=== PATIENT | female | born 1930 | race Caucasian/White ===

== ENCOUNTER 2016-11-14 16:55 | Inpatient (IN) | payer MEDICARE ==
[~2016-11-14] VITALS: Ht 154.9 cm; Wt 45.8 kg
[~2016-11-14 16:55] MED LIST: ASPI81TA2 PO; FURO-68 PO; LEVO750T5 PO
[2016-11-14] MEDS ORDERED: methylPREDNISolone SOD SUCC PF 125 MG/2 ML VIAL. IV ONE (17:15)
[2016-11-14] MEDS ORDERED: IPRATRPIUM/ALBUTEROL 0.5/2.5MG 3 ML NEBU. NEB ONE (17:15)
[2016-11-14 17:29] LABS: HCO3 ABG 22 mmol/L (21-28); PO2 ABG 54 mmHg (65-108); SAT O2 ABG 86 % (92-99)
[2016-11-14 17:30] LABS: PCO2 ABG 38 mmHg (35-46); PH ABG 7.38 (7.35-7.45)
[2016-11-14 17:32] LABS: BASO # 0.1 x10^3/uL (0.0-0.2); BASO % 1 % (0-3); EOS % 1 % (0-3); HEMATOCRIT 40.7 % (36.0-47.0); HEMOGLOBIN 13.1 g/dL (12.0-15.5); LYMPH # 2.1 x10^3/uL (1.0-4.8); LYMPH % 22 % (24-48); MEAN CORPUSCULAR HEMOGLOBIN 31 pg (25-35); MEAN CORPUSCULAR HGB CONC 32 g/dL (31-37); MEAN CORPUSCULAR VOLUME 97 fL (79-100); MONO % 6 % (0-9); NEUT % 71 % (31-73); PLATELET COUNT 334 x10^3/uL (140-400); RED BLOOD COUNT 4.18 x10^6/uL (3.50-5.40); WHITE BLOOD COUNT 9.8 x10^3/uL (4.0-11.0)
[2016-11-14] MEDS ORDERED: NITROGLYCERIN PREMIX 250 ML IV ONE (17:45)
[2016-11-14 17:50] LABS: CALCIUM 9.1 mg/dL (8.5-10.1); GFR 52.8; POTASSIUM 4.2 mmol/L (3.5-5.1)
[2016-11-14 17:58] LABS: OBC FLU VALID
[2016-11-14 18:02] LABS: ALBUMIN 3.4 g/dL (3.4-5.0); ALBUMIN/GLOBULIN RATIO 0.9 (1.0-1.7); TOTAL BILIRUBIN 0.5 mg/dL (0.2-1.0)
[2016-11-14] MEDS ORDERED: NITROGLYCERIN SUBLINGUAL 0.4 MG BOTTLE OF 25. SL PRN (20:30)
[2016-11-14] MEDS ORDERED: MORPHINE SULFATE 2 MG/ML DISP.SYRIN. IV PRN (20:30)
[2016-11-14] MEDS ORDERED: ACETAMINOPHEN 325 MG TABLET. PO PRN (20:30)
[2016-11-14] MEDS ORDERED: ONDANSETRON PF 4 MG/2 ML VIAL. IV PRN (20:30)
--- NOTE | 2016-11-14 21:48 | ED.ADGEN ---
Past Medical History Past Medical History: Hypertension Past Surgical History: No Surgical History Alcohol Use: None Drug Use: None Adult General Chief Complaint Chief Complaint: SHORTNESS OF BREATH HPI HPI Patient is a 86 year old woman, history of hypertension, COPD, who presents emergency department with report of shortness of breath. Upon arousing emergency part, patient noted be in respiratory failure, dyspneic, tachypnea, with an oxygen saturation in the 70s. Patient placed on a nonrebreather, is denying any chest pain, complaining of increasing shortness of breath with nonproductive cough over the past several days, denies any fevers or chills, any weakness emesis or tingling, any injuries. Patient states that she was seen in the emergency department in August, at that time she was given antibiotics other medications. She states she does not have a primary care provider, and has not been taking blood pressure medication which was prescribed previously. It is unclear if she did take all the medications he was given during her previous ED visit. Denies any swelling extremities, any recent travel or surgery , history of DVT or PE. Patient noted be hypertensive, blood pressure 200s over 130s, oxygen saturation is improved on Ventimask, 92% on 50% FiO2, respiratory rate is in the 30s, and heart rate is sinus tachycardia in the 1 teens. Review of Systems Review of Systems Constitutional: Denies fever or chills. [] Eyes: Denies change in visual acuity. [] HENT: Denies nasal congestion or sore throat. [] Respiratory: Nonproductive cough, shortness of breath the past several days. Cardiovascular: Denies chest pain or edema. [] GI: Denies abdominal pain, nausea, vomiting, bloody stools or diarrhea. [] : Denies dysuria. [] Musculoskeletal: Denies back pain or joint pain. [] Integument: Denies rash. [] Neurologic: Denies headache, focal weakness or sensory changes. [] Endocrine: Denies polyuria or polydipsia. [] Lymphatic: Denies swollen glands. [] Psychiatric: Denies depression or anxiety. [] Current Medications Current Medications Current Medications Medications (Trade) Dose Ordered Sig/Brice Start Time Stop Time Status Last Admin Dose Admin Albuterol/ Ipratropium (Duoneb) 3 ml 1X ONCE 11/14/16 17:15 11/14/16 17:16 DC 11/14/16 17:22 3 ML Methylprednisolone Sodium Succinate (Solu-Medrol 125mg Vial) 125 mg 1X ONCE 11/14/16 17:15 11/14/16 17:16 DC 11/14/16 17:42 125 MG Allergies Allergies Allergies Coded Allergies Type Severity Reaction Last Updated Verified Penicillins Allergy Intermediate 11/14/16 No Sulfa (Sulfonamide Antibiotics) Allergy Intermediate 11/14/16 No Physical Exam Physical Exam Constitutional: Well developed, well nourished, ill-appearing appearance, and respiratory failure, with increased work of breathing. Ventimask in place. HENT: Normocephalic, atraumatic, bilateral external ears normal, oropharynx moist, no oral exudates, nose normal. [] Eyes: PERRLA, EOMI, conjunctiva normal, no discharge. [] Neck: Normal range of motion, no tenderness, supple, no stridor. [] Cardiovascular: Tachycardic, S1, S2, S3, no rubs. [] Lungs & Thorax: Patient with rales noted, and diminished breath sounds at bases bilaterally, few scattered wheezing. Very poor aeration, poor effort, patient with increased work of breathing. Abdomen: Bowel sounds normal, soft, no tenderness, no rebound, rigidity, no guarding, no masses, no pulsatile masses. [] Skin: Warm, dry, no erythema, no rash. [] Back: No tenderness, no CVA tenderness. [] Extremities: No tenderness, no cyanosis, no clubbing, ROM intact, no edema. Negative Homans sign. [] Neurologic: Alert and oriented X 3, normal motor function, normal sensory function, no focal deficits noted. [] Psychologic: Affect normal, judgement normal, mood normal. [] Current Patient Data Vital Signs Vital Signs Date Time Temp Pulse Resp B/P Pulse Ox O2 Delivery O2 Flow Rate FiO2 11/14/16 17:33 110 35 207/130 90 Venturi Mask 11/14/16 17:05 98.3 98.3 Lab Values Laboratory Tests Test 11/14/16 17:12 11/14/16 17:20 White Blood Count 9.8x10^3/uL (4.0-11.0) Red Blood Count 4.18x10^6/uL (3.50-5.40) Hemoglobin 13.1g/dL (12.0-15.5) Hematocrit 40.7% (36.0-47.0) Mean Corpuscular Volume 97fL (79-100) Mean Corpuscular Hemoglobin 31pg (25-35) Mean Corpuscular Hemoglobin Concent 32g/dL (31-37) Red Cell Distribution Width 14.0% (11.5-14.5) Platelet Count 334x10^3/uL (140-400) Neutrophils (%) (Auto) 71% (31-73) Lymphocytes (%) (Auto) 22% (24-48) L Monocytes (%) (Auto) 6% (0-9) Eosinophils (%) (Auto) 1% (0-3) Basophils (%) (Auto) 1% (0-3) Neutrophils # (Auto) 7.0x10^3uL (1.8-7.7) Lymphocytes # (Auto) 2.1x10^3/uL (1.0-4.8) Monocytes # (Auto) 0.6x10^3/uL (0.0-1.1) Eosinophils # (Auto) 0.1x10^3/uL (0.0-0.7) Basophils # (Auto) 0.1x10^3/uL (0.0-0.2) Sodium Level 144mmol/L (136-145) Potassium Level 4.2mmol/L (3.5-5.1) Chloride Level 103mmol/L (98-107) Carbon Dioxide Level 29mmol/L (21-32) Anion Gap 12 (6-14) Blood Urea Nitrogen 22mg/dL (7-20) H Creatinine 1.0mg/dL (0.6-1.0) Estimated GFR (Cockcroft-Gault) 52.8 BUN/Creatinine Ratio 22 (6-20) H Glucose Level 166mg/dL (70-99) H Lactic Acid Level 3.0mmol/L (0.4-2.0) H Calcium Level 9.1mg/dL (8.5-10.1) Total Bilirubin 0.5mg/dL (0.2-1.0) Aspartate Amino Transferase (AST) 54U/L (15-37) H Alanine Aminotransferase (ALT) 47U/L (14-59) Alkaline Phosphatase 79U/L (46-116) Troponin I Quantitative 0.058ng/mL (0.000-0.055) YF-Geq-F-Type Natriuretic Peptide 40340lq/mL (0-449) H Total Protein 7.0g/dL (6.4-8.2) Albumin 3.4g/dL (3.4-5.0) Albumin/Globulin Ratio 0.9 (1.0-1.7) L Influenza Type A Antigen Negative (NEGATIVE) Influenza Type B Antigen Negative (NEGATIVE) O2 Saturation 86% (92-99) L Arterial Blood pH 7.38 (7.35-7.45) Arterial Blood pCO2 at Patient Temp 38mmHg (35-46) Arterial Blood pO2 at Patient Temp 54mmHg (65-108) L Arterial Blood HCO3 22mmol/L (21-28) Arterial Blood Base Excess -3mmol/L (-3-3) FiO2 50.0 Laboratory Tests 11/14/16 17:12 Laboratory Tests 11/14/16 17:12 EKG EKG EC: Sinus tachycardia, heart rate 115 beats minute, right axis deviation , QTC of 464, QRS of 108, DC 126, evidence of right ventricular hypertrophy, T- wave inversions noted in V5 and V6, abnormal ECG, does not meet STEMI criteria. No prior for comparison. Radiology/Procedures Radiology/Procedures [] Course & Med Decision Making Course & Med Decision Making Pertinent Labs and Imaging studies reviewed. (See chart for details) Oxygen saturation in the mid 90s on Ventimask at 50% FiO2. Chest x-ray reveals evidence of COPD, with pulmonary edema, effusion, and possible infiltrates. Consistent with COPD, CHF and possible pneumonia. Review of records reveals the patient was seen in the emergency department August but declined admission, and signed out AGAINST MEDICAL ADVICE, and was discharged home with Lasix, antibiotics and steroids. Patient does not carry a diagnosis of congestive heart failure, but has not been evaluated since that time. Examination today is consistent with all these diagnoses. I did discuss this with the patient, at this time she is agreeable for admission to the hospital. Patient was placed on BiPAP promptly in the emergency department, along with a nitroglycerin infusion , with control of her blood pressure via protocol, blood pressures in the 150/ 80 range established, heart rate is in the 90s to low 100s, oxygen saturation and BiPAP is in the upper 90s. Patient appears much more comfortable. Work of breathing significantly diminished. Chest x-ray with findings as stated, patient was initiated on Levaquin for an about a coverage, along with steroids, nebs, and nitroglycerin as stated, noted to have a slightly elevated troponin, which I believe is due to the patient's respiratory distress. Presentation and history discussed with Dr. Paulino of cardiology, he is in agreement with the assessment and plan to follow serial enzymes, continue blood pressure management with nitroglycerin infusion, and respiratory support. No indication for anticoagulation or other intervention at this time. Findings as above discussed with Dr. Andersen of internal medicine, patient accepted to her service as a full admission to the cardiac telemetry floor with interventions and consultation as above, additionally pulmonary no care consultation for management of respiratory failure. Patient remained stable with above interventions, transferred to the floor without issue with bridge orders as discussed. Dragon Disclaimer Dragon Disclaimer This electronic medical record was generated, in whole or in part, using a voice recognition dictation system. Departure Impression: Primary Impression: Hypoxic Additional Impressions: Elevated troponin Tachycardia SOB (shortness of breath) Disposition: ADMITTED INPATIENT Admitting Physician: Other Condition: IMPROVED Critical Care Time Critical care time was 20 minutes exclusive of procedures. Problem Qualifiers ROSA ISELA WATTS DO Nov 14, 2016 21:48
[2016-11-14] MEDS ORDERED: ASPIRIN 81 MG TAB.CHEW PO ONE (22:00)
[2016-11-14] MEDS: IPRATRPIUM/ALBUTEROL 0.5/2.5MG 3 ML NEBU. NEB SCH (22:06)
[2016-11-14] MEDS ORDERED: FUROSEMIDE 20 MG/2 ML VIAL IVP ONE (22:30)
[2016-11-15] VITALS (13 sets, daily range): BP systolic 134–164; BP diastolic 62–94
[2016-11-15 05:29] LABS: BASO % 0 % (0-3); EOS % 0 % (0-3); HEMOGLOBIN 12.5 g/dL (12.0-15.5); LYMPH # 0.5 x10^3/uL (1.0-4.8); LYMPH % 8 % (24-48); MEAN CORPUSCULAR HEMOGLOBIN 31 pg (25-35); MEAN CORPUSCULAR HGB CONC 32 g/dL (31-37); MEAN CORPUSCULAR VOLUME 96 fL (79-100); MONO % 3 % (0-9); NEUT % 90 % (31-73); PLATELET COUNT 322 x10^3/uL (140-400); RED BLOOD COUNT 4.05 x10^6/uL (3.50-5.40); RED CELL DISTRIBUTION WIDTH 14.3 % (11.5-14.5)
[2016-11-15 05:46] LABS: CALCIUM 8.7 mg/dL (8.5-10.1); CREATININE 0.9 mg/dL (0.6-1.0); GFR 59.7; POTASSIUM 4.1 mmol/L (3.5-5.1)
--- NOTE | 2016-11-15 06:12 | EKG ---
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 OLD ANTEROSEPTAL WALL IA. LEFT VENTRICULAR HYPERTROPHY WITH REOLARIZATION CHANGES. ALSO CONSIDER MYOCARDIAL ISCHEMIA. MISSING LEAD V 4. Electronically Signed On 11-16-2016 21:37:40 CDT by Danielle Gilman
[2016-11-15] MEDS: IPRATRPIUM/ALBUTEROL 0.5/2.5MG 3 ML NEBU. NEB SCH ×4 (07:45→20:27)
--- NOTE | 2016-11-15 08:02 | EKG ---
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 PROLONGED QT ABNORMAL ECG Electronically Signed On 11-18-2016 12:37:40 CDT by Danielle Gilman
[2016-11-15] MEDS ORDERED: INFLUENZA VAX SCREEN BY RX. MC PRN (08:45)
--- NOTE | 2016-11-15 08:56 | RAD ---
Portable chest, 11/14/2016: History: Shortness of breath Comparison is made to a study from 08/29/2016. The patient is rotated to the left. There are moderate bibasilar opacities compatible with pleural fluid and infiltrate, right greater than left. The opacities appear to have worsened slightly since the previous study, particularly on the right. The pulmonary vascularity is congested. The cardiac margins are obscured by the basilar infiltrates and pleural fluid, but the heart size appears to be unchanged. IMPRESSION: Congestive heart failure with pulmonary edema and pleural effusions, right greater than left, with slight worsening since 08/29/2016. A component of pneumonia cannot be excluded.
[2016-11-15] MEDS ORDERED: FLU VACC QUAD 2016-17 (36MOS+)/PF 0.5 ML SYRINGE. VAX IM ONE (09:00)
--- NOTE | 2016-11-15 09:26 | HP ---
ADMIT DATE: 11/14/2016 CHIEF COMPLAINT: Shortness of breath. HISTORY OF PRESENT ILLNESS: The patient is an 86-year-old woman with past medical history of hypertension, COPD, question CHF who presented to the Emergency Room with shortness of breath. She was noted to be quite dyspneic, hypoxic and tachypneic with a pulse ox in the 70s. She was therefore placed on BiPAP. She denied any chest pain or productive cough, although has noted symptoms getting worse over the past few days with dry cough and increasing shortness of breath. No fevers, no chills, no other symptoms. Of note, the patient actually had been in the Emergency Room in August with essentially similar symptoms and had a chest x-ray suspicious for CHF exacerbation at that time, but declined further admission. Current ER visit was also positive for hypertensive urgency with blood pressures in the 200s/130s, tachycardic in the one teens. PAST MEDICAL HISTORY: Hypertension, COPD, although she never smoked. Question CHF. FAMILY HISTORY: Unknown to the patient. SOCIAL HISTORY: Recently moved in with her niece, as she was unable to cope at home and her ceiling, according to the niece, was falling in with black mold behind. ALLERGIES: PENICILLINS AND SULFA. MEDICATIONS: Essentially none, as the patient had run out of medication scripts from the ER, does not have a PCP. REVIEW OF SYSTEMS: Limited due to her current use of BiPAP. The patient denies any pain. Breathing is improved. PHYSICAL EXAMINATION: VITAL SIGNS: From today show a blood pressure of 173/97, heart rate at 94, respiratory rate at 38. She is afebrile. GENERAL: This is a malnourished, frail-appearing, 86-year-old woman, awake, alert, mild respiratory distress, currently on BiPAP. HEENT: Shows no scleral icterus. NECK: Supple, without any palpable lymphadenopathy. LUNGS: Have expiratory wheezes bilaterally. HEART: Tachycardic. ABDOMEN: Has positive bowel sounds, soft, nontender. EXTREMITIES: Show no edema, no clubbing, no cyanosis. SKIN: Warm, soft and dry. LABORATORY DATA: CBC with a WBC of 9.8, hemoglobin 13.1, platelets of 334, normal differential. Chemistries with a BUN and creatinine of 22 and 1.0, normal electrolytes, glucose at 166, AST at 54, ALT at 47. Initial proBNP 17,082. Troponin at 0.058, albumin at 3.4, lactate at 3.0. Serologies for influenza A and B were negative. IMAGING STUDIES: Chest x-ray obtained in the Emergency Room and reviewed by myself show fluffy infiltrates in bilateral lower lung regions as well as suspected loculated pleural effusion in the right lung. ASSESSMENT AND PLAN: The patient is an 86-year-old woman with hypoxic respiratory distress with signs and symptoms consistent with congestive heart failure exacerbation. Suspect this actually had been the diagnosis at her previous ER visit, as she had been discharged with levofloxacin and Lasix. I will give her IV Lasix here and monitor fluid status closely. BiPAP as needed. We will obtain both Pulmonary and Cardiology evaluations in the morning. She did receive a dose of methylprednisolone in the Emergency Room. No clear signs of chronic obstructive pulmonary disease at this point. We will discontinue for now. Levofloxacin has been administered as well. Consider continuing if signs of infectious etiology. Continue inhalers. Administer IV Lasix. LORENA MORRIS MD DR: GREGG/nts JOB#: [id number] / [id number] PATRIC
[2016-11-15 10:56] LABS: PLT ESTIMATE ADEQUATE (ADEQUATE)
--- NOTE | 2016-11-15 10:57 | PDOC ---
PULMONARY PROGRESS NOTES Vitals Vital Signs Date Time Temp Pulse Resp B/P Pulse Ox O2 Delivery O2 Flow Rate FiO2 11/15/16 08:00 Bi-pap 11/15/16 07:45 99 11/15/16 07:00 97.3 87 20 164/87 97.3 Labs Laboratory Tests Test 11/14/16 17:12 11/14/16 17:20 11/14/16 22:57 11/15/16 04:45 White Blood Count 9.8x10^3/uL (4.0-11.0) 6.0x10^3/uL (4.0-11.0) Red Blood Count 4.18x10^6/uL (3.50-5.40) 4.05x10^6/uL (3.50-5.40) Hemoglobin 13.1g/dL (12.0-15.5) 12.5g/dL (12.0-15.5) Hematocrit 40.7% (36.0-47.0) 39.0% (36.0-47.0) Mean Corpuscular Volume 97fL (79-100) 96fL (79-100) Mean Corpuscular Hemoglobin 31pg (25-35) 31pg (25-35) Mean Corpuscular Hemoglobin Concent 32g/dL (31-37) 32g/dL (31-37) Red Cell Distribution Width 14.0% (11.5-14.5) 14.3% (11.5-14.5) Platelet Count 334x10^3/uL (140-400) 322x10^3/uL (140-400) Neutrophils (%) (Auto) 71% (31-73) 90% (31-73) Lymphocytes (%) (Auto) 22% (24-48) 8% (24-48) Monocytes (%) (Auto) 6% (0-9) 3% (0-9) Eosinophils (%) (Auto) 1% (0-3) 0% (0-3) Basophils (%) (Auto) 1% (0-3) 0% (0-3) Neutrophils # (Auto) 7.0x10^3uL (1.8-7.7) 5.4x10^3uL (1.8-7.7) Lymphocytes # (Auto) 2.1x10^3/uL (1.0-4.8) 0.5x10^3/uL (1.0-4.8) Monocytes # (Auto) 0.6x10^3/uL (0.0-1.1) 0.2x10^3/uL (0.0-1.1) Eosinophils # (Auto) 0.1x10^3/uL (0.0-0.7) 0.0x10^3/uL (0.0-0.7) Basophils # (Auto) 0.1x10^3/uL (0.0-0.2) 0.0x10^3/uL (0.0-0.2) Sodium Level 144mmol/L (136-145) 144mmol/L (136-145) Potassium Level 4.2mmol/L (3.5-5.1) 4.1mmol/L (3.5-5.1) Chloride Level 103mmol/L (98-107) 103mmol/L (98-107) Carbon Dioxide Level 29mmol/L (21-32) 32mmol/L (21-32) Anion Gap 12 (6-14) 9 (6-14) Blood Urea Nitrogen 22mg/dL (7-20) 20mg/dL (7-20) Creatinine 1.0mg/dL (0.6-1.0) 0.9mg/dL (0.6-1.0) Estimated GFR (Cockcroft-Gault) 52.8 59.7 BUN/Creatinine Ratio 22 (6-20) Glucose Level 166mg/dL (70-99) 127mg/dL (70-99) Lactic Acid Level 3.0mmol/L (0.4-2.0) Calcium Level 9.1mg/dL (8.5-10.1) 8.7mg/dL (8.5-10.1) Total Bilirubin 0.5mg/dL (0.2-1.0) Aspartate Amino Transf (AST/SGOT) 54U/L (15-37) Alanine Aminotransferase (ALT/SGPT) 47U/L (14-59) Alkaline Phosphatase 79U/L (46-116) Troponin I Quantitative 0.058ng/mL (0.000-0.055) 0.060ng/mL (0.000-0.055) 0.047ng/mL (0.000-0.055) RI-Uoh-T-Type Natriuretic Peptide 69271me/mL (0-449) Total Protein 7.0g/dL (6.4-8.2) Albumin 3.4g/dL (3.4-5.0) Albumin/Globulin Ratio 0.9 (1.0-1.7) Influenza Type A Antigen Negative (NEGATIVE) Influenza Type B Antigen Negative (NEGATIVE) O2 Saturation 86% (92-99) Arterial Blood pH 7.38 (7.35-7.45) Arterial Blood pCO2 at Patient Temp 38mmHg (35-46) Arterial Blood pO2 at Patient Temp 54mmHg (65-108) Arterial Blood HCO3 22mmol/L (21-28) Arterial Blood Base Excess -3mmol/L (-3-3) FiO2 50.0 Segmented Neutrophils % 80% (35-66) Band Neutrophils % 3% (0-9) Lymphocytes % 9% (24-48) Atypical Lymphocytes % (Manual) 1% (0-0) Monocytes % 7% (0-10) Platelet Estimate Adequate (ADEQUATE) Laboratory Tests Test 11/14/16 17:12 11/14/16 17:20 11/14/16 22:57 11/15/16 04:45 White Blood Count 9.8x10^3/uL (4.0-11.0) 6.0x10^3/uL (4.0-11.0) Red Blood Count 4.18x10^6/uL (3.50-5.40) 4.05x10^6/uL (3.50-5.40) Hemoglobin 13.1g/dL (12.0-15.5) 12.5g/dL (12.0-15.5) Hematocrit 40.7% (36.0-47.0) 39.0% (36.0-47.0) Mean Corpuscular Volume 97fL (79-100) 96fL (79-100) Mean Corpuscular Hemoglobin 31pg (25-35) 31pg (25-35) Mean Corpuscular Hemoglobin Concent 32g/dL (31-37) 32g/dL (31-37) Red Cell Distribution Width 14.0% (11.5-14.5) 14.3% (11.5-14.5) Platelet Count 334x10^3/uL (140-400) 322x10^3/uL (140-400) Neutrophils (%) (Auto) 71% (31-73) 90% (31-73) Lymphocytes (%) (Auto) 22% (24-48) 8% (24-48) Monocytes (%) (Auto) 6% (0-9) 3% (0-9) Eosinophils (%) (Auto) 1% (0-3) 0% (0-3) Basophils (%) (Auto) 1% (0-3) 0% (0-3) Neutrophils # (Auto) 7.0x10^3uL (1.8-7.7) 5.4x10^3uL (1.8-7.7) Lymphocytes # (Auto) 2.1x10^3/uL (1.0-4.8) 0.5x10^3/uL (1.0-4.8) Monocytes # (Auto) 0.6x10^3/uL (0.0-1.1) 0.2x10^3/uL (0.0-1.1) Eosinophils # (Auto) 0.1x10^3/uL (0.0-0.7) 0.0x10^3/uL (0.0-0.7) Basophils # (Auto) 0.1x10^3/uL (0.0-0.2) 0.0x10^3/uL (0.0-0.2) Sodium Level 144mmol/L (136-145) 144mmol/L (136-145) Potassium Level 4.2mmol/L (3.5-5.1) 4.1mmol/L (3.5-5.1) Chloride Level 103mmol/L (98-107) 103mmol/L (98-107) Carbon Dioxide Level 29mmol/L (21-32) 32mmol/L (21-32) Anion Gap 12 (6-14) 9 (6-14) Blood Urea Nitrogen 22mg/dL (7-20) 20mg/dL (7-20) Creatinine 1.0mg/dL (0.6-1.0) 0.9mg/dL (0.6-1.0) Estimated GFR (Cockcroft-Gault) 52.8 59.7 BUN/Creatinine Ratio 22 (6-20) Glucose Level 166mg/dL (70-99) 127mg/dL (70-99) Lactic Acid Level 3.0mmol/L (0.4-2.0) Calcium Level 9.1mg/dL (8.5-10.1) 8.7mg/dL (8.5-10.1) Total Bilirubin 0.5mg/dL (0.2-1.0) Aspartate Amino Transf (AST/SGOT) 54U/L (15-37) Alanine Aminotransferase (ALT/SGPT) 47U/L (14-59) Alkaline Phosphatase 79U/L (46-116) Troponin I Quantitative 0.058ng/mL (0.000-0.055) 0.060ng/mL (0.000-0.055) 0.047ng/mL (0.000-0.055) HL-Sam-J-Type Natriuretic Peptide 03196oe/mL (0-449) Total Protein 7.0g/dL (6.4-8.2) Albumin 3.4g/dL (3.4-5.0) Albumin/Globulin Ratio 0.9 (1.0-1.7) Influenza Type A Antigen Negative (NEGATIVE) Influenza Type B Antigen Negative (NEGATIVE) O2 Saturation 86% (92-99) Arterial Blood pH 7.38 (7.35-7.45) Arterial Blood pCO2 at Patient Temp 38mmHg (35-46) Arterial Blood pO2 at Patient Temp 54mmHg (65-108) Arterial Blood HCO3 22mmol/L (21-28) Arterial Blood Base Excess -3mmol/L (-3-3) FiO2 50.0 Segmented Neutrophils % 80% (35-66) Band Neutrophils % 3% (0-9) Lymphocytes % 9% (24-48) Atypical Lymphocytes % (Manual) 1% (0-0) Monocytes % 7% (0-10) Platelet Estimate Adequate (ADEQUATE) Medications Active Scripts Medications Dose Route/Sig Days Date Category Lasix (Furosemide) 40 Mg Tablet 1 Tab PO DAILY 08/29/16 Rx Levofloxacin 750 Mg Tablet 1 Tab PO DAILY 08/29/16 Rx Aspirin 81 Mg Tab.chew 1 Tab PO DAILY 08/29/16 Rx Impression . ACUTE RESP FAILURE SEC TO ACUTE CHF AND EFFUSION THORACENTESIS IN AM CATALINA NEGRETE MD Nov 15, 2016 10:57
--- NOTE | 2016-11-15 10:59 | ACF ---
Admission Forms Criteria RESPIRATORY FAILURE [facility] Clinical Indications for Admission to Inpatient Care (Place 'X' for any and all applicable criteria): Hospital admission is needed for appropriate care of the patient because of acute respiratory failure or insufficiency as indicated by ANY ONE of the following(1)(2)(3)(4)(5)(6)(7)(8): [X]I. Mechanical ventilation needed (acute invasive or noninvasive) [ ]II. Severe ventilation deficit as indicated by ANY ONE of the following (9) [ ]a) Respiratory acidosis (pH less than 7.32 and partial pressure of carbon dioxide greater than 40 mm Hg (5.3 kPa)) [ ]b) Partial pressure of carbon dioxide greater than 44 mm Hg (5.9 kPa ) (new) [ ]c) Airflow measurements less than 25% of predicted (eg, peak expiratory flow rate less than 100 L/minute) [ ]d) Forced vital capacity less than 15 mL/kg of ideal body weight, or 50% decrease in vital capacity from baseline [ ]III. Noncardiac pulmonary edema not resolving with rapid emergency treatment (8) [ ]IV. Severe respiratory distress as indicated by ANY ONE of the following: [ ]a) Severe tachypnea (respiratory rate greater than 30, greater than 45 for 6-month-old, greater than 60 for ) [ ]b) Severe hypoxemia (partial pressure of oxygen less than 50 mm Hg ( 6.7 kPa) on greater than 50% oxygen or partial pressure of oxygen to FIO2 ratio less than 200) [ ]c) Mental status deterioration from respiratory disease [ ]V. Airway obstruction or inadequate protection [A](10)(11) The original [employer] content created by [employer] has been revised. The portions of the content which have been revised are identified through the use of italic text or in bold, and [employer] has neither reviewed nor approved the modified material. All other unmodified content is copyright [employer]. Please see references footnoted in the original [employer] edition 2016 Admission Criteria Met?: Yes PREETI TA Nov 15, 2016 10:59
--- NOTE | 2016-11-15 12:47 | PDOC2 ---
LUCY HENDRIX COATING ENGINEER 11/15/16 1247: CARDIAC CONSULT DATE OF CONSULT Date of Consult DATE: 11/15/16 TIME: 12:47 REASON FOR CONSULT Reason for Consult: CHF REFERRING PHYSICIAN Referring Physician: Dr. Bibiana Waterman SOURCE Source: Chart review, Patient HISTORY OF PRESENT ILLNESS HISTORY OF PRESENT ILLNESS 86 year old female with a 4 - 5 year history of dyspnea that worsened 2 - 3 days ago. Denies associated chest pain, LE edema, PND or orthopnea. NT- proBNP > 17,000 with troponin level of 0.06. Per nursing previously had home oxygen which she discontinued; she now denies having home oxygen. Also with history of HTN and meds discontinued by patient in 2014. Was also seen in ER with dyspnea and declined admission at that time Reason for Visit: CHF PAST MEDICAL HISTORY Cardiovascular: HTN Pulmonary: COPD (?) PAST SURGICAL HISTORY Past Surgical History: No pertinent history FAMILY HISTORY Family History negative for CAD SOCIAL HISTORY Smoke: No ALCOHOL: none Drugs: None CURRENT MEDICATIONS CURRENT MEDICATIONS Current Medications Medications (Trade) Dose Ordered Sig/Brice Route PRN Reason Start Time Stop Time Status Last Admin Dose Admin Albuterol/ Ipratropium (Duoneb) 3 ml 1X ONCE NEB 11/14/16 17:15 11/14/16 17:16 DC 11/14/16 17:22 Methylprednisolone Sodium Succinate 125 mg 125 mg 1X ONCE IV 11/14/16 17:15 11/14/16 17:16 DC 11/14/16 17:42 Nitroglycerin/ Dextrose 250 ml @ 0 mls/hr 1X ONCE IV 11/14/16 17:45 11/14/16 17:46 DC 11/14/16 17:44 Levofloxacin/ Dextrose (LEVAQUIN 750mg PREMIX) 150 ml @ 100 mls/hr 1X ONCE IV 11/14/16 17:45 11/14/16 19:14 DC 11/14/16 18:04 Albuterol/ Ipratropium (Duoneb) 3 ml RTQID NEB 11/14/16 21:00 11/16/16 20:59 11/15/16 11:12 Aspirin (Children'S Aspirin) 324 mg 1X ONCE PO 11/14/16 22:00 11/14/16 22:01 DC 11/15/16 00:19 Furosemide (Lasix) 20 mg 1X ONCE IVP 11/14/16 22:30 11/14/16 22:31 DC 11/15/16 00:19 ALLERGIES ALLERGIES: Coded Allergies: Penicillins (Verified Allergy, Intermediate, 11/15/16) Sulfa (Sulfonamide Antibiotics) (Verified Allergy, Intermediate, 11/15/16) ROS Review of System 14 point review with pertinent positives in HPI PHYSICAL EXAM General: Alert, Oriented X3, Cooperative HEENT: Atraumatic, PERRLA Lungs: Other (posterior crackles about 1/3 up bilaterally) Heart: Regular rate (tachy), Normal S1, Normal S2 Abdomen: Normal bowel sounds, Soft Extremities: No edema Skin: No rashes Neuro: Normal speech Psych/Mental Status: Mental status NL, Mood NL MUSCULOSKELETAL: Other (kyphosis) VITALS VITALS Vital Signs Date Time Temp Pulse Resp B/P Pulse Ox O2 Delivery O2 Flow Rate FiO2 11/15/16 11:12 99 BiPAP/CPAP 11/15/16 10:57 81 20 148/76 11/15/16 07:00 97.3 97.3 LABS Lab: Laboratory Tests Test 11/14/16 17:12 11/14/16 17:20 11/14/16 22:57 11/15/16 04:45 White Blood Count 9.8x10^3/uL (4.0-11.0) 6.0x10^3/uL (4.0-11.0) Red Blood Count 4.18x10^6/uL (3.50-5.40) 4.05x10^6/uL (3.50-5.40) Hemoglobin 13.1g/dL (12.0-15.5) 12.5g/dL (12.0-15.5) Hematocrit 40.7% (36.0-47.0) 39.0% (36.0-47.0) Mean Corpuscular Volume 97fL (79-100) 96fL (79-100) Mean Corpuscular Hemoglobin 31pg (25-35) 31pg (25-35) Mean Corpuscular Hemoglobin Concent 32g/dL (31-37) 32g/dL (31-37) Red Cell Distribution Width 14.0% (11.5-14.5) 14.3% (11.5-14.5) Platelet Count 334x10^3/uL (140-400) 322x10^3/uL (140-400) Neutrophils (%) (Auto) 71% (31-73) 90% (31-73) Lymphocytes (%) (Auto) 22% (24-48) 8% (24-48) Monocytes (%) (Auto) 6% (0-9) 3% (0-9) Eosinophils (%) (Auto) 1% (0-3) 0% (0-3) Basophils (%) (Auto) 1% (0-3) 0% (0-3) Neutrophils # (Auto) 7.0x10^3uL (1.8-7.7) 5.4x10^3uL (1.8-7.7) Lymphocytes # (Auto) 2.1x10^3/uL (1.0-4.8) 0.5x10^3/uL (1.0-4.8) Monocytes # (Auto) 0.6x10^3/uL (0.0-1.1) 0.2x10^3/uL (0.0-1.1) Eosinophils # (Auto) 0.1x10^3/uL (0.0-0.7) 0.0x10^3/uL (0.0-0.7) Basophils # (Auto) 0.1x10^3/uL (0.0-0.2) 0.0x10^3/uL (0.0-0.2) Sodium Level 144mmol/L (136-145) 144mmol/L (136-145) Potassium Level 4.2mmol/L (3.5-5.1) 4.1mmol/L (3.5-5.1) Chloride Level 103mmol/L (98-107) 103mmol/L (98-107) Carbon Dioxide Level 29mmol/L (21-32) 32mmol/L (21-32) Anion Gap 12 (6-14) 9 (6-14) Blood Urea Nitrogen 22mg/dL (7-20) 20mg/dL (7-20) Creatinine 1.0mg/dL (0.6-1.0) 0.9mg/dL (0.6-1.0) Estimated GFR (Cockcroft-Gault) 52.8 59.7 BUN/Creatinine Ratio 22 (6-20) Glucose Level 166mg/dL (70-99) 127mg/dL (70-99) Lactic Acid Level 3.0mmol/L (0.4-2.0) Calcium Level 9.1mg/dL (8.5-10.1) 8.7mg/dL (8.5-10.1) Total Bilirubin 0.5mg/dL (0.2-1.0) Aspartate Amino Transf (AST/SGOT) 54U/L (15-37) Alanine Aminotransferase (ALT/SGPT) 47U/L (14-59) Alkaline Phosphatase 79U/L (46-116) Troponin I Quantitative 0.058ng/mL (0.000-0.055) 0.060ng/mL (0.000-0.055) 0.047ng/mL (0.000-0.055) CG-Cic-I-Type Natriuretic Peptide 04844bp/mL (0-449) Total Protein 7.0g/dL (6.4-8.2) Albumin 3.4g/dL (3.4-5.0) Albumin/Globulin Ratio 0.9 (1.0-1.7) Influenza Type A Antigen Negative (NEGATIVE) Influenza Type B Antigen Negative (NEGATIVE) O2 Saturation 86% (92-99) Arterial Blood pH 7.38 (7.35-7.45) Arterial Blood pCO2 at Patient Temp 38mmHg (35-46) Arterial Blood pO2 at Patient Temp 54mmHg (65-108) Arterial Blood HCO3 22mmol/L (21-28) Arterial Blood Base Excess -3mmol/L (-3-3) FiO2 50.0 Segmented Neutrophils % 80% (35-66) Band Neutrophils % 3% (0-9) Lymphocytes % 9% (24-48) Atypical Lymphocytes % (Manual) 1% (0-0) Monocytes % 7% (0-10) Platelet Estimate Adequate (ADEQUATE) IMAGES IMAGES CXR: Comparison is made to a study from 08/29/2016. The patient is rotated to the left. There are moderate bibasilar opacities compatible with pleural fluid and infiltrate, right greater than left. The opacities appear to have worsened slightly since the previous study, particularly on the right. The pulmonary vascularity is congested. The cardiac margins are obscured by the basilar infiltrates and pleural fluid, but the heart size appears to be unchanged. IMPRESSION: Congestive heart failure with pulmonary edema and pleural effusions, right greater than left, with slight worsening since 08/29/2016. A component of pneumonia cannot be excluded. ASSESSMENT/PLAN ASSESSMENT/PLAN 1. acute CHF, ? diastolic repeat IV furosemide @ 1400 today - 20 mg continue IV NTG echo pending to evaluate LV function 2. tachydysrhythmias ? PAF will start low dose beta-blockers 3. HTN SBP 160-170 adding low dose beta-blockers continue IV NTG 4. AECOPD per PULM Problems: YASMINE ODOM MD 11/15/16 2339: CARDIAC CONSULT ALLERGIES ALLERGIES: Coded Allergies: Penicillins (Verified Allergy, Intermediate, 11/15/16) Sulfa (Sulfonamide Antibiotics) (Verified Allergy, Intermediate, 11/15/16) ASSESSMENT/PLAN ASSESSMENT/PLAN Pt. seen and examined. Agree with above IMPORT AND EXPORT CLERK note. 86 y.o woman with dyspnea. On exam she has wheezing, rales appears malnourished, weak echo with severe LV dysfunction and bilateral effusions. About 2L negative thus far, continue lasix daily IVP agree with thoracentesis will follow Given her frail state, consider ischemic w/u on a non-invasive basis (if not done prior) and cath only if sign ischemia. Problems: LUCY HENDRIX APRN Nov 15, 2016 12:47 YASMINE ODOM MD Nov 15, 2016 23:39
[2016-11-15] MEDS ORDERED: METOPROLOL TART IMMED RELEASE 25 MG TABLET PO SCH (13:00)
--- NOTE | 2016-11-15 13:46 | PDOC ---
PROGRESS NOTES Chief Complaint Chief Complaint Hypoxic respir failure ASSESSMENT AND PLAN: 1. CHF: much improved. IV lasix, BIPAP/O2, nebs. d/w Dr morales: appears overall dry, although lungs congested. hold off on ongoing IV lasix. echo with EF 20-25% 2. Troponin leak: prob 2/2 above. cardiology consulted. most likely HTN/CHF related rather than primary CAD 3. HTN: much improved. wean off NTG, start BB, add MARYLOU-I later 4. ?PNA: on levaquin empirically 5. Pleural effusion: pleurocentesis in AM. appreciate Dr Magallanes's input 6. Vitals Vitals Vital Signs Date Time Temp Pulse Resp B/P Pulse Ox O2 Delivery O2 Flow Rate FiO2 11/15/16 11:12 99 BiPAP/CPAP 11/15/16 10:57 81 20 148/76 11/15/16 07:00 97.3 97.3 Physical Exam General: Alert, Cooperative, No acute distress Heart: Regular rate Lungs: Other (mild rales R) Abdomen: Normal bowel sounds, No tenderness Extremities: No clubbing, No edema Skin: No rashes Labs LABS Laboratory Tests Test 11/14/16 17:12 11/14/16 17:20 11/14/16 22:57 11/15/16 04:45 White Blood Count 9.8x10^3/uL (4.0-11.0) 6.0x10^3/uL (4.0-11.0) Red Blood Count 4.18x10^6/uL (3.50-5.40) 4.05x10^6/uL (3.50-5.40) Hemoglobin 13.1g/dL (12.0-15.5) 12.5g/dL (12.0-15.5) Hematocrit 40.7% (36.0-47.0) 39.0% (36.0-47.0) Mean Corpuscular Volume 97fL (79-100) 96fL (79-100) Mean Corpuscular Hemoglobin 31pg (25-35) 31pg (25-35) Mean Corpuscular Hemoglobin Concent 32g/dL (31-37) 32g/dL (31-37) Red Cell Distribution Width 14.0% (11.5-14.5) 14.3% (11.5-14.5) Platelet Count 334x10^3/uL (140-400) 322x10^3/uL (140-400) Neutrophils (%) (Auto) 71% (31-73) 90% (31-73) Lymphocytes (%) (Auto) 22% (24-48) 8% (24-48) Monocytes (%) (Auto) 6% (0-9) 3% (0-9) Eosinophils (%) (Auto) 1% (0-3) 0% (0-3) Basophils (%) (Auto) 1% (0-3) 0% (0-3) Neutrophils # (Auto) 7.0x10^3uL (1.8-7.7) 5.4x10^3uL (1.8-7.7) Lymphocytes # (Auto) 2.1x10^3/uL (1.0-4.8) 0.5x10^3/uL (1.0-4.8) Monocytes # (Auto) 0.6x10^3/uL (0.0-1.1) 0.2x10^3/uL (0.0-1.1) Eosinophils # (Auto) 0.1x10^3/uL (0.0-0.7) 0.0x10^3/uL (0.0-0.7) Basophils # (Auto) 0.1x10^3/uL (0.0-0.2) 0.0x10^3/uL (0.0-0.2) Sodium Level 144mmol/L (136-145) 144mmol/L (136-145) Potassium Level 4.2mmol/L (3.5-5.1) 4.1mmol/L (3.5-5.1) Chloride Level 103mmol/L (98-107) 103mmol/L (98-107) Carbon Dioxide Level 29mmol/L (21-32) 32mmol/L (21-32) Anion Gap 12 (6-14) 9 (6-14) Blood Urea Nitrogen 22mg/dL (7-20) 20mg/dL (7-20) Creatinine 1.0mg/dL (0.6-1.0) 0.9mg/dL (0.6-1.0) Estimated GFR (Cockcroft-Gault) 52.8 59.7 BUN/Creatinine Ratio 22 (6-20) Glucose Level 166mg/dL (70-99) 127mg/dL (70-99) Lactic Acid Level 3.0mmol/L (0.4-2.0) Calcium Level 9.1mg/dL (8.5-10.1) 8.7mg/dL (8.5-10.1) Total Bilirubin 0.5mg/dL (0.2-1.0) Aspartate Amino Transf (AST/SGOT) 54U/L (15-37) Alanine Aminotransferase (ALT/SGPT) 47U/L (14-59) Alkaline Phosphatase 79U/L (46-116) Troponin I Quantitative 0.058ng/mL (0.000-0.055) 0.060ng/mL (0.000-0.055) 0.047ng/mL (0.000-0.055) IA-Ifu-C-Type Natriuretic Peptide 71018em/mL (0-449) Total Protein 7.0g/dL (6.4-8.2) Albumin 3.4g/dL (3.4-5.0) Albumin/Globulin Ratio 0.9 (1.0-1.7) Influenza Type A Antigen Negative (NEGATIVE) Influenza Type B Antigen Negative (NEGATIVE) O2 Saturation 86% (92-99) Arterial Blood pH 7.38 (7.35-7.45) Arterial Blood pCO2 at Patient Temp 38mmHg (35-46) Arterial Blood pO2 at Patient Temp 54mmHg (65-108) Arterial Blood HCO3 22mmol/L (21-28) Arterial Blood Base Excess -3mmol/L (-3-3) FiO2 50.0 Segmented Neutrophils % 80% (35-66) Band Neutrophils % 3% (0-9) Lymphocytes % 9% (24-48) Atypical Lymphocytes % (Manual) 1% (0-0) Monocytes % 7% (0-10) Platelet Estimate Adequate (ADEQUATE) Review of Systems Review of Systems feels much better, happy BiPAP is off. breathing much improved. no CP or cough LORENA MORRIS MD Nov 15, 2016 13:46
[2016-11-15] MEDS ORDERED: FUROSEMIDE 20 MG/2 ML VIAL IVP SCH (14:00)
--- NOTE | 2016-11-15 14:57 | EKG ---
[facility] [address] [place] [address] Test Date: 2016-11-15 Test Time: 14:33:05 Pat Name: DIGNA HYMAN Department: Room: 204 1 Gender: F Pump Assembler: : [id number] Requested By: LUCY HENDRIX Order Number: [id number] Reading MD: Danielle Gilman Measurements Intervals Kaycee Rate: 94 P: 180 GA: 90 QRS: 66 QRSD: 116 T: -121 QT: 394 QTc: 499 Interpretive Statements SINUS RHYTHM LVH WITH REPOLARIZATION ABNORMALITY ALSO CONSIDER MYOCARDIAL ISCHEMIA. QRS(T) CONTOUR ABNORMALITY CONSIDER ANTEROSEPTAL MYOCARDIAL DAMAGE ABNORMAL ECG Electronically Signed On 11-18-2016 19:50:47 CDT by Danielle Gilman
--- NOTE | 2016-11-15 16:37 | CARD ---
APPROVED REPORT EXAM: Two-dimensional and M-mode echocardiogram with Doppler and color Doppler. Other Information Quality : GoodHR: 98bpm Rhythm : NSR INDICATION Congestive Heart Failure Respiratory failure 2D DIMENSIONS RVDd2.3 (2.9-3.5cm)Left Atrium(2D)4.1 (1.6-4.0cm) IVSd0.9 (0.7-1.1cm)Aortic Root(2D)2.8 (2.0-3.7cm) LVDd6.0 (3.9-5.9cm)LVOT Diameter2.2 (1.8-2.4cm) PWd0.8 (0.7-1.1cm)LVDs5.6 (2.5-4.0cm) FS (%) 6.2 %SV24.9 ml LVEF(%)13.7 (>50%) Aortic Valve AoV Peak Breezy.153.8cm/sAoV VTI26.6cm AO Peak GR.9.5mmHgLVOT Peak Breezy.114.4cm/s AO Mean GR.6mmHgAVA (VMAX)2.83cm2 AI P 1/2 [id number] Mitral Valve MV E Pappipkz616.5cm/sMV E Peak Gr.6mmHg MV DECEL [id number] A Myooyrie299.8cm/s MV E Mean Gr.4mmHgE/A Ratio0.9 MV A [id number] Pulmonary Valve PV Peak Hcvjabhg61.0cm/s Pulmonary Vein S1 Ggduiime15.2cm/sD2 Jgdmizwo94.2cm/s PVa [id number] LEFT VENTRICLE The Left Ventricle is mildly dilated. There is normal left ventricular wall thickness. Left ventricle systolic function is severely impaired. The Ejection Fraction is 20-25%. There is severe global hypo kinesis of the left ventricle with anterior wall/septal and apical predominance. Transmitral Doppler flow pattern is Grade I-abnormal relaxation pattern. No left ventricle thrombus noted on this study. RIGHT VENTRICLE The right ventricle is normal size. The right ventricular systolic function is normal. ATRIA The left atrium is moderately dilated. The right atrium size is normal. The interatrial septum is int act with no evidence for an atrial septal defect or patent foramen ovale as noted on 2-D or Doppler i maging. AORTIC VALVE The aortic valve is mildly sclerotic. The aortic valve is trileaflet. Doppler and Color Flow revealed mild aortic regurgitation. There is no significant aortic valvular stenosis. MITRAL VALVE Mitral annular calcification is severe. The mitral valve leaflets are thickened. There is no evidence of mitral valve prolapse. There is no mitral valve stenosis. Doppler and Color Flow revealed mild mi tral regurgitation. TRICUSPID VALVE Doppler and Color Flow revealed trace tricuspid regurgitation. There is no tricuspid valve stenosis. PULMONIC VALVE Doppler and Color Flow revealed trace pulmonic valvular regurgitation. There is no pulmonic valvular stenosis. GREAT VESSELS The aortic root is normal in size. The ascending aorta is normal in size. The IVC is normal in size a nd collapses >50% with inspiration. PERICARDIAL EFFUSION There are large bilateral pleural effusions. There is a trace loculated posterior pericardial effusio n. Critical Notification Critical Value: No <Conclusion> There is severe global hypokinesis of the left ventricle with anterior wall/septal and apical predomi nance. Doppler and Color Flow revealed mild aortic regurgitation. There are large bilateral pleural effusions. There is a trace loculated posterior pericardial effusion. Left ventricle systolic function is severely impaired. The Ejection Fraction is 20-25%.
[2016-11-15 17:40] LABS: TOTAL PROTEIN 5.9 g/dL (6.4-8.2)
[2016-11-15] MEDS ORDERED: LISINOPRIL 2.5 MG TABLET PO ONE (19:30)
[2016-11-15] MEDS: METOPROLOL TART IMMED RELEASE 25 MG TABLET PO SCH (23:00)
[2016-11-16] VITALS (18 sets, daily range): BP systolic 113–164; BP diastolic 53–85
--- NOTE | 2016-11-16 01:58 | CONS ---
DATE OF CONSULTATION: 11/15/2016 ATTENDING PHYSICIAN: Dr. Andersen. REASON FOR CONSULTATION: The patient is seen in pulmonary consultation at the request of Dr. Andersen for acute respiratory failure requiring noninvasive ventilation. HISTORY OF PRESENT ILLNESS: The patient is an 86-year-old with past history of hypertension, COPD, questionable heart failure, presented with a 2-3 day history of increasing shortness of breath. She was found to be tachypneic and had a pulse ox of 70 percent in the Emergency Room, was placed on BiPAP. Chest x-ray was obtained. I personally reviewed the x-ray. There is evidence of vascular congestion, bilateral effusions, right greater than left. The patient actually had chest x-ray back in August in comparison to the 08/29/2016 film. The x-ray has worsened. The patient states that she ran out of her blood pressure medication. When she came in, she had pressures of 200/130. PAST MEDICAL HISTORY: Hypertension, COPD, unknown if she has had previous CHF in the past. FAMILY HISTORY: The patient does not know much about her family. SOCIAL HISTORY: She moved in with her niece. ALLERGIES: TO PENICILLIN, SULFA. MEDICATIONS: List was reviewed. REVIEW OF SYSTEMS: As indicated above, otherwise other systems were reviewed and negative. A 10-point system was reviewed and negative. CURRENT MEDICATION: List was reviewed. PHYSICAL EXAMINATION: VITAL SIGNS: Stable. O2 saturation currently on nasal cannula was 96% on 2 liters. HEENT: Eyes, the sclerae were nonicteric. NECK: Jugular venous distention was slightly elevated. No lymphadenopathy. CHEST: Full expansion. LUNGS: Diminished breath sounds in the bases. No wheezes. CARDIOVASCULAR: Regular rate and rhythm with S1, S2, no S3. ABDOMEN: Soft, nontender, nondistended. EXTREMITIES: No clubbing, cyanosis. Minimal edema. NEUROLOGIC: The patient was awake, alert, following commands. A detailed neuro exam was not performed. LABORATORY DATA: Arterial blood gas revealed a pH of 7.38, PaCO2 of 38, pO2 of 54 on 50% FIO2 White count was normal. Hemoglobin and hematocrit were normal. Electrolytes were noted. Troponin level was elevated. BNP was elevated. IMAGING: Chest x-ray revealed vascular congestion along with effusions, right greater than left. IMPRESSION: 1. Acute hypoxemic respiratory failure secondary to acute systolic heart failure, possibly diastolic. 2. Acute systolic heart failure. The patient was undergoing echocardiogram at the bedside, certified medical technician reported EF of approximately 15%. 3. Bilateral pleural effusions, right greater than left. 4. Uncontrolled hypertension. 5. Chronic obstructive pulmonary disease. 6. Abnormal x-ray revealing bilateral effusions, right greater than left. PLAN: 1. The patient has done well with IV Lasix and IV nitroglycerin. Follow cardiology input. 2. Proceed with thoracentesis. No need for antibiotics. 3. We will follow clinical course and make further recommendations. I do appreciate the privilege in sharing in the patient's care. CATALINA NEGRETE MD DR: TALON/darius JOB#: [id number] / [id number]
[2016-11-16] MEDS: IPRATRPIUM/ALBUTEROL 0.5/2.5MG 3 ML NEBU. NEB SCH ×4 (07:31→19:56)
[2016-11-16 08:38] LABS: INR 1.1 (0.8-1.1); PROTHROMBIN TIME PATIENT 13.8 SEC (11.7-14.0)
[2016-11-16] MEDS: METOPROLOL TART IMMED RELEASE 25 MG TABLET PO SCH ×2 (09:27→22:21)
[2016-11-16] MEDS: LISINOPRIL 5 MG TABLET. PO SCH (09:27)
--- NOTE | 2016-11-16 10:10 | PDOC ---
MAYDASUZANNA Jv CARGO OPERATIONS AGENT 11/16/16 1010: PROGRESS NOTES Subjective Subjective s/p thoracentesis. reports improvement in breathing, denies chest discomfort, palpitations or lightheadedness. Objective Objective Echo There is severe global hypokinesis of the left ventricle with anterior wall/ septal and apical predominance. Doppler and Color Flow revealed mild aortic regurgitation. There are large bilateral pleural effusions. There is a trace loculated posterior pericardial effusion. Left ventricle systolic function is severely impaired. The Ejection Fraction is 20-25%. Vital Signs Date Time Temp Pulse Resp B/P Pulse Ox O2 Delivery O2 Flow Rate FiO2 11/16/16 09:27 83 157/82 11/16/16 07:56 Nasal Cannula 2.0 11/16/16 07:33 95 11/16/16 07:00 98.0 18 98.0 Intake and Output 11/16/16 07:00 Intake Total 140 ml Output Total 1300 ml Balance -1160 ml Intake Oral 140 ml Output Urine Total 1300 ml Physical Exam Abdomen: Normal bowel sounds, Soft Heart: Regular rate, Normal S1, Normal S2, Other (no gallops) Extremities: No cyanosis, No edema General: Alert, Oriented X3, Cooperative Lungs: Other (decreased bilaterally with basilar crackles. ) Neuro: Normal speech, Strength at 5/5 X4 ext, Reflexes 2+ Psych/Mental Status: Mental status NL, Mood NL Assessment Assessment Problems Medical Problems: (1) Elevated troponin Status: Acute (2) Hypoxic Status: Acute (3) SOB (shortness of breath) Status: Acute (4) Tachycardia Status: Acute 1. acute systolic HF - EF 20-25% good output last 48 hours with IV lasix. s/p thoracentesis (1100cc). Repeat CXR and chemistry. continue beta josie and ACEI. 2. tachydysrhythmias ? PAF - no a fib seen on telemetry over last 48 hours. Maintaining sinus rhythm on beta blockers. 3. HTN SBP 140-150s Continue beta blockers. ACEI added, first dose this am. Monitor and titrate as tolerated. 4. AECOPD per PULM Comment Review of Relevant I have reviewed the following items brenton (where applicable) has been applied. Labs Laboratory Tests Test 11/14/16 17:12 11/14/16 17:20 11/14/16 22:57 11/15/16 04:45 White Blood Count 9.8x10^3/uL (4.0-11.0) 6.0x10^3/uL (4.0-11.0) Red Blood Count 4.18x10^6/uL (3.50-5.40) 4.05x10^6/uL (3.50-5.40) Hemoglobin 13.1g/dL (12.0-15.5) 12.5g/dL (12.0-15.5) Hematocrit 40.7% (36.0-47.0) 39.0% (36.0-47.0) Mean Corpuscular Volume 97fL (79-100) 96fL (79-100) Mean Corpuscular Hemoglobin 31pg (25-35) 31pg (25-35) Mean Corpuscular Hemoglobin Concent 32g/dL (31-37) 32g/dL (31-37) Red Cell Distribution Width 14.0% (11.5-14.5) 14.3% (11.5-14.5) Platelet Count 334x10^3/uL (140-400) 322x10^3/uL (140-400) Neutrophils (%) (Auto) 71% (31-73) 90% (31-73) Lymphocytes (%) (Auto) 22% (24-48) 8% (24-48) Monocytes (%) (Auto) 6% (0-9) 3% (0-9) Eosinophils (%) (Auto) 1% (0-3) 0% (0-3) Basophils (%) (Auto) 1% (0-3) 0% (0-3) Neutrophils # (Auto) 7.0x10^3uL (1.8-7.7) 5.4x10^3uL (1.8-7.7) Lymphocytes # (Auto) 2.1x10^3/uL (1.0-4.8) 0.5x10^3/uL (1.0-4.8) Monocytes # (Auto) 0.6x10^3/uL (0.0-1.1) 0.2x10^3/uL (0.0-1.1) Eosinophils # (Auto) 0.1x10^3/uL (0.0-0.7) 0.0x10^3/uL (0.0-0.7) Basophils # (Auto) 0.1x10^3/uL (0.0-0.2) 0.0x10^3/uL (0.0-0.2) Sodium Level 144mmol/L (136-145) 144mmol/L (136-145) Potassium Level 4.2mmol/L (3.5-5.1) 4.1mmol/L (3.5-5.1) Chloride Level 103mmol/L (98-107) 103mmol/L (98-107) Carbon Dioxide Level 29mmol/L (21-32) 32mmol/L (21-32) Anion Gap 12 (6-14) 9 (6-14) Blood Urea Nitrogen 22mg/dL (7-20) 20mg/dL (7-20) Creatinine 1.0mg/dL (0.6-1.0) 0.9mg/dL (0.6-1.0) Estimated GFR (Cockcroft-Gault) 52.8 59.7 BUN/Creatinine Ratio 22 (6-20) Glucose Level 166mg/dL (70-99) 127mg/dL (70-99) Lactic Acid Level 3.0mmol/L (0.4-2.0) Calcium Level 9.1mg/dL (8.5-10.1) 8.7mg/dL (8.5-10.1) Total Bilirubin 0.5mg/dL (0.2-1.0) Aspartate Amino Transf (AST/SGOT) 54U/L (15-37) Alanine Aminotransferase (ALT/SGPT) 47U/L (14-59) Alkaline Phosphatase 79U/L (46-116) Troponin I Quantitative 0.058ng/mL (0.000-0.055) 0.060ng/mL (0.000-0.055) 0.047ng/mL (0.000-0.055) LQ-Mhh-Z-Type Natriuretic Peptide 88592an/mL (0-449) Total Protein 7.0g/dL (6.4-8.2) 5.9g/dL (6.4-8.2) Albumin 3.4g/dL (3.4-5.0) Albumin/Globulin Ratio 0.9 (1.0-1.7) Influenza Type A Antigen Negative (NEGATIVE) Influenza Type B Antigen Negative (NEGATIVE) O2 Saturation 86% (92-99) Arterial Blood pH 7.38 (7.35-7.45) Arterial Blood pCO2 at Patient Temp 38mmHg (35-46) Arterial Blood pO2 at Patient Temp 54mmHg (65-108) Arterial Blood HCO3 22mmol/L (21-28) Arterial Blood Base Excess -3mmol/L (-3-3) FiO2 50.0 Segmented Neutrophils % 80% (35-66) Band Neutrophils % 3% (0-9) Lymphocytes % 9% (24-48) Atypical Lymphocytes % (Manual) 1% (0-0) Monocytes % 7% (0-10) Platelet Estimate Adequate (ADEQUATE) Magnesium Level 2.0mg/dL (1.8-2.4) Lactate Dehydrogenase 242U/L (81-234) Thyroid Stimulating Hormone (TSH) 1.702uIU/mL (0.358-3.74) Test 11/16/16 03:30 11/16/16 08:05 Triglycerides Level 65mg/dL (0-150) Cholesterol Level 180mg/dL (0-200) LDL Cholesterol, Calculated 77mg/dL (0-100) VLDL Cholesterol, Calculated 13mg/dL (0-40) HDL Cholesterol 90mg/dL (40-60) Cholesterol/HDL Ratio 2.0 Prothrombin Time 13.8SEC (11.7-14.0) Prothromb Time International Ratio 1.1 (0.8-1.1) Laboratory Tests Test 11/16/16 03:30 11/16/16 08:05 Triglycerides Level 65mg/dL (0-150) Cholesterol Level 180mg/dL (0-200) LDL Cholesterol, Calculated 77mg/dL (0-100) VLDL Cholesterol, Calculated 13mg/dL (0-40) HDL Cholesterol 90mg/dL (40-60) Cholesterol/HDL Ratio 2.0 Prothrombin Time 13.8SEC (11.7-14.0) Prothromb Time International Ratio 1.1 (0.8-1.1) Microbiology 11/14/16 Blood Culture - Preliminary, Resulted NO GROWTH AFTER 1 DAY Medications Current Medications Albuterol/ Ipratropium (Duoneb) 3 ml 1X ONCE NEB Last administered on 17:22; Start 11/14/16 at 17:15; Stop 11/14/16 at 17:16; Status DC Methylprednisolone Sodium Succinate 125 mg 125 mg 1X ONCE IV Last administered on 11/14/16 17:42; Start 11/14/16 at 17:15; Stop 11/14/16 at 17:16 ; Status DC Nitroglycerin/ Dextrose 250 ml @ 0 mls/hr 1X ONCE IV Last administered on 11/14 17:44; Start 11/14/16 at 17:45; Stop 11/14/16 at 17:46; Status DC Levofloxacin/ Dextrose (LEVAQUIN 750mg PREMIX) 150 ml @ 100 mls/hr 1X ONCE IV Last administered on 11/14/16 18:04; Start 11/14/16 at 17:45; Stop 11/14/16 at 19:14; Status DC Ondansetron HCl (Zofran) 4 mg PRN Q8HRS PRN IV NAUSEA/VOMITING; Start 11/14/16 at 20:30; Stop 11/15/16 at 20:29; Status DC Morphine Sulfate 2 mg PRN Q2HR PRN IV PAIN; Start 11/14/16 at 20:30; Stop 11/15 at 20:29; Status DC Acetaminophen (Tylenol) 650 mg PRN Q4HRS PRN PO FEVER; Start 11/14/16 at 20:30 ; Stop 11/15/16 at 20:29; Status DC Nitroglycerin (Nitrostat) 0.4 mg PRN Q5MIN PRN SL CHEST PAIN; Start 11/14/16 at 20:30; Stop 11/15/16 at 20:29; Status DC Albuterol/ Ipratropium (Duoneb) 3 ml RTQID NEB Last administered on 11/16/16 07:31; Start 11/14/16 at 21:00; Stop 11/16/16 at 20:59 Aspirin (Children'S Aspirin) 324 mg 1X ONCE PO Last administered on 11/15/16 00:19; Start 11/14/16 at 22:00; Stop 11/14/16 at 22:01; Status DC Furosemide (Lasix) 20 mg 1X ONCE IVP Last administered on 11/15/16 00:19; Start 11/14/16 at 22:30; Stop 11/14/16 at 22:31; Status DC Info (Do NOT chart on this placeholder) 1 each PRN 1X PRN MC SEE COMMENTS; Start 11/15/16 at 08:45; Status UNV Influenza Virus Vaccine Quadrival (Fluarix Quad [id number] Syringe) 0.5 ml ONCE ONCE VAX IM Last administered on 11/15/16 18:12; Start 11/15/16 at 09:00; Stop 11/15/16 at 09:01; Status DC Furosemide (Lasix) 20 mg BID92 IVP Last administered on 11/15/16 14:32; Start 11/15/16 at 14:00; Stop 11/15/16 at 18:56; Status DC Metoprolol Tartrate (Lopressor) 25 mg BID PO ; Start 11/15/16 at 13:00; Stop at 16:46; Status DC Metoprolol Tartrate (Lopressor) 12.5 mg BID PO Last administered on 11/16/16 09:27; Start 11/15/16 at 21:00 Lisinopril (Prinivil) 2.5 mg 1X ONCE PO Last administered on 11/15/16 20:38; Start 11/15/16 at 19:30; Stop 11/15/16 at 19:31; Status DC Lisinopril (Prinivil) 5 mg DAILY PO Last administered on 11/16/16 09:27; Start 11/16/16 at 09:00 Active Scripts Active Lasix (Furosemide) 40 Mg Tablet 1 Tab PO DAILY Levofloxacin 750 Mg Tablet 1 Tab PO DAILY Aspirin 81 Mg Tab.chew 1 Tab PO DAILY Vitals/I & O Vital Sign - Last 24 Hours 11/15/16 11/15/16 11/15/16 11/15/16 10:57 11:12 15:06 15:23 Temp 98.1 98.1 Pulse 81 92 Resp 20 18 B/P 148/76 160/84 Pulse Ox 100 99 97 91 O2 Delivery BiPAP/CPAP BiPAP/CPAP Nasal Cannula Nasal Cannula O2 Flow Rate 4.0 4.0 11/15/16 11/15/16 11/15/16 11/15/16 19:00 20:00 20:10 20:28 Temp 98.0 98.0 Pulse 90 90 Resp 24 B/P 134/62 143/86 Pulse Ox 95 92 O2 Delivery Nasal Cannula Nasal Cannula Nasal Cannula O2 Flow Rate 4.0 2.0 2.0 11/15/16 11/15/16 11/15/16 11/15/16 20:38 20:40 21:10 21:40 Pulse 90 94 90 88 B/P 143/86 152/94 153/84 144/75 11/15/16 11/15/16 11/15/16 11/15/16 22:10 22:40 23:00 23:10 Pulse 84 88 89 80 B/P 149/82 148/81 149/82 143/80 11/15/16 11/15/16 11/16/16 11/16/16 23:37 23:40 01:40 03:08 Temp 97.9 97.7 97.9 97.7 Pulse 100 80 76 72 Resp 24 24 B/P 149/78 150/85 137/78 135/76 Pulse Ox 94 96 O2 Delivery Nasal Cannula Nasal Cannula O2 Flow Rate 4.0 4.0 11/16/16 11/16/16 11/16/16 11/16/16 03:40 07:00 07:33 07:56 Temp 98.0 98.0 Pulse 74 83 Resp 18 B/P 142/75 157/82 Pulse Ox 93 95 O2 Delivery Nasal Cannula Nasal Cannula Nasal Cannula O2 Flow Rate 2.0 2.0 2.0 11/16/16 11/16/16 09:27 09:27 Pulse 83 83 B/P 157/82 157/82 Intake and Output 11/15/16 11/15/16 11/16/16 15:00 23:00 07:00 Intake Total 140 ml Output Total 700 ml 600 ml Balance -560 ml -600 ml YASMINE ODOM MD 11/16/16 9853: PROGRESS NOTES Plan Plan of Care Pt. seen and examined. Agree with above COIL WINDER note. Reports feeling better today. I had a long discussion today with the patient about stress testing versus cath for her CMP. She wishes to continue medical therapy only, and in light of her age, comorbidities, frail state and sedentary lifestyle, this is not unreasonable. Continue meds. f/u on outpt basis. Ok to DC from CV perspective. SUZANNA OHARA [employer]PERATIONS AGENT Nov 16, 2016 10:10 YASMINE ODOM MD Nov 16, 2016 21:43
[2016-11-16] MEDS ORDERED: LIDOCAINE 1% / SOD BICARB 8.4% 20 ML VIAL. IJ ONE ×2 (10:11→11:00)
[2016-11-16 10:31] LABS: CALCIUM 8.6 mg/dL (8.5-10.1); GFR 52.8; POTASSIUM 3.6 mmol/L (3.5-5.1)
[2016-11-16] MEDS ORDERED: MIDAZOLAM HCL 2 MG/2 ML VIAL. ONE (10:36)
[2016-11-16] MEDS ORDERED: FENTANYL PF 100 MCG/2 ML VIAL. ONE (10:36)
[2016-11-16] MEDS ORDERED: FENTANYL PF 100 MCG/2 ML VIAL. IV ONE (11:00)
[2016-11-16] MEDS ORDERED: MIDAZOLAM HCL 2 MG/2 ML VIAL. IV ONE (11:00)
--- NOTE | 2016-11-16 11:05 | PDOC ---
Exam Tafe Teacher Tafe Teacher [place] Photo Engraver Photo Engraver B Cates Pre-Procedure Diagnosis Pre-Procedure Diagnosis Acute respiratory failure, with CHF and bilateral pleural effusions, rt > lt. Post-Procedure Diagnosis Post-Procedure Diagnosis Same Procedure Performed Procedure Performed CT guided Dx/Tx right thoracentesis Type of Anesthesia Type of Anesthesia Local + Mod sedation Estimated Blood Loss EBL: Trace Specimens Specimans 1100 cc yellow-slightly hazy right pleural fluid removed---samples to lab per routine protocol Condition of Patient Condition of Patient Stable. No apparent complication. Disposition Disposition From IR/CT return to 204. 2 hr post thora CXR requested. F/u with Pulmonary. Full report to follow. THU LASSITER MD Nov 16, 2016 11:05
--- NOTE | 2016-11-16 11:06 | PDOC ---
PULMONARY PROGRESS NOTES Subjective LESS SOA Vitals Vital Signs Date Time Temp Pulse Resp B/P Pulse Ox O2 Delivery O2 Flow Rate FiO2 11/16/16 11:05 14 94 Nasal Cannula 5.0 11/16/16 11:02 73 11/16/16 09:27 157/82 11/16/16 07:00 98.0 98.0 ROS: No Nausea, No Chest Pain, No Abdominal Pain, No Increase Cough Lungs: Other (mild rales R) Cardiovascular: S1, S2 Abdomen: Soft Neuro Exam: Alert Extremities: No Edema Skin: Warm Labs Laboratory Tests Test 11/14/16 17:12 11/14/16 17:20 11/14/16 22:57 11/15/16 04:45 White Blood Count 9.8x10^3/uL (4.0-11.0) 6.0x10^3/uL (4.0-11.0) Red Blood Count 4.18x10^6/uL (3.50-5.40) 4.05x10^6/uL (3.50-5.40) Hemoglobin 13.1g/dL (12.0-15.5) 12.5g/dL (12.0-15.5) Hematocrit 40.7% (36.0-47.0) 39.0% (36.0-47.0) Mean Corpuscular Volume 97fL (79-100) 96fL (79-100) Mean Corpuscular Hemoglobin 31pg (25-35) 31pg (25-35) Mean Corpuscular Hemoglobin Concent 32g/dL (31-37) 32g/dL (31-37) Red Cell Distribution Width 14.0% (11.5-14.5) 14.3% (11.5-14.5) Platelet Count 334x10^3/uL (140-400) 322x10^3/uL (140-400) Neutrophils (%) (Auto) 71% (31-73) 90% (31-73) Lymphocytes (%) (Auto) 22% (24-48) 8% (24-48) Monocytes (%) (Auto) 6% (0-9) 3% (0-9) Eosinophils (%) (Auto) 1% (0-3) 0% (0-3) Basophils (%) (Auto) 1% (0-3) 0% (0-3) Neutrophils # (Auto) 7.0x10^3uL (1.8-7.7) 5.4x10^3uL (1.8-7.7) Lymphocytes # (Auto) 2.1x10^3/uL (1.0-4.8) 0.5x10^3/uL (1.0-4.8) Monocytes # (Auto) 0.6x10^3/uL (0.0-1.1) 0.2x10^3/uL (0.0-1.1) Eosinophils # (Auto) 0.1x10^3/uL (0.0-0.7) 0.0x10^3/uL (0.0-0.7) Basophils # (Auto) 0.1x10^3/uL (0.0-0.2) 0.0x10^3/uL (0.0-0.2) Sodium Level 144mmol/L (136-145) 144mmol/L (136-145) Potassium Level 4.2mmol/L (3.5-5.1) 4.1mmol/L (3.5-5.1) Chloride Level 103mmol/L (98-107) 103mmol/L (98-107) Carbon Dioxide Level 29mmol/L (21-32) 32mmol/L (21-32) Anion Gap 12 (6-14) 9 (6-14) Blood Urea Nitrogen 22mg/dL (7-20) 20mg/dL (7-20) Creatinine 1.0mg/dL (0.6-1.0) 0.9mg/dL (0.6-1.0) Estimated GFR (Cockcroft-Gault) 52.8 59.7 BUN/Creatinine Ratio 22 (6-20) Glucose Level 166mg/dL (70-99) 127mg/dL (70-99) Lactic Acid Level 3.0mmol/L (0.4-2.0) Calcium Level 9.1mg/dL (8.5-10.1) 8.7mg/dL (8.5-10.1) Total Bilirubin 0.5mg/dL (0.2-1.0) Aspartate Amino Transf (AST/SGOT) 54U/L (15-37) Alanine Aminotransferase (ALT/SGPT) 47U/L (14-59) Alkaline Phosphatase 79U/L (46-116) Troponin I Quantitative 0.058ng/mL (0.000-0.055) 0.060ng/mL (0.000-0.055) 0.047ng/mL (0.000-0.055) DQ-Vvs-U-Type Natriuretic Peptide 34853aq/mL (0-449) Total Protein 7.0g/dL (6.4-8.2) 5.9g/dL (6.4-8.2) Albumin 3.4g/dL (3.4-5.0) Albumin/Globulin Ratio 0.9 (1.0-1.7) Influenza Type A Antigen Negative (NEGATIVE) Influenza Type B Antigen Negative (NEGATIVE) O2 Saturation 86% (92-99) Arterial Blood pH 7.38 (7.35-7.45) Arterial Blood pCO2 at Patient Temp 38mmHg (35-46) Arterial Blood pO2 at Patient Temp 54mmHg (65-108) Arterial Blood HCO3 22mmol/L (21-28) Arterial Blood Base Excess -3mmol/L (-3-3) FiO2 50.0 Segmented Neutrophils % 80% (35-66) Band Neutrophils % 3% (0-9) Lymphocytes % 9% (24-48) Atypical Lymphocytes % (Manual) 1% (0-0) Monocytes % 7% (0-10) Platelet Estimate Adequate (ADEQUATE) Magnesium Level 2.0mg/dL (1.8-2.4) Lactate Dehydrogenase 242U/L (81-234) Thyroid Stimulating Hormone (TSH) 1.702uIU/mL (0.358-3.74) Test 11/16/16 03:30 11/16/16 08:05 Sodium Level 146mmol/L (136-145) Potassium Level 3.6mmol/L (3.5-5.1) Chloride Level 106mmol/L (98-107) Carbon Dioxide Level 31mmol/L (21-32) Anion Gap 9 (6-14) Blood Urea Nitrogen 24mg/dL (7-20) Creatinine 1.0mg/dL (0.6-1.0) Estimated GFR (Cockcroft-Gault) 52.8 Glucose Level 98mg/dL (70-99) Calcium Level 8.6mg/dL (8.5-10.1) Triglycerides Level 65mg/dL (0-150) Cholesterol Level 180mg/dL (0-200) LDL Cholesterol, Calculated 77mg/dL (0-100) VLDL Cholesterol, Calculated 13mg/dL (0-40) HDL Cholesterol 90mg/dL (40-60) Cholesterol/HDL Ratio 2.0 Prothrombin Time 13.8SEC (11.7-14.0) Prothromb Time International Ratio 1.1 (0.8-1.1) Laboratory Tests Test 11/16/16 03:30 11/16/16 08:05 Sodium Level 146mmol/L (136-145) Potassium Level 3.6mmol/L (3.5-5.1) Chloride Level 106mmol/L (98-107) Carbon Dioxide Level 31mmol/L (21-32) Anion Gap 9 (6-14) Blood Urea Nitrogen 24mg/dL (7-20) Creatinine 1.0mg/dL (0.6-1.0) Estimated GFR (Cockcroft-Gault) 52.8 Glucose Level 98mg/dL (70-99) Calcium Level 8.6mg/dL (8.5-10.1) Triglycerides Level 65mg/dL (0-150) Cholesterol Level 180mg/dL (0-200) LDL Cholesterol, Calculated 77mg/dL (0-100) VLDL Cholesterol, Calculated 13mg/dL (0-40) HDL Cholesterol 90mg/dL (40-60) Cholesterol/HDL Ratio 2.0 Prothrombin Time 13.8SEC (11.7-14.0) Prothromb Time International Ratio 1.1 (0.8-1.1) Medications Active Scripts Medications Dose Route/Sig Days Date Category Lasix (Furosemide) 40 Mg Tablet 1 Tab PO DAILY 08/29/16 Rx Levofloxacin 750 Mg Tablet 1 Tab PO DAILY 08/29/16 Rx Aspirin 81 Mg Tab.chew 1 Tab PO DAILY 08/29/16 Rx Impression . 1. Acute hypoxemic respiratory failure secondary to acute systolic heart failure, possibly diastolic. 2. Acute systolic heart failure. The patient was undergoing echocardiogram at the bedside, business office technician reported EF of approximately 15%. 3. Bilateral pleural effusions, right greater than left. 4. Uncontrolled hypertension. 5. Chronic obstructive pulmonary disease. 6. Abnormal x-ray revealing bilateral effusions, right greater than left. Plan . 1. The patient has done well with IV Lasix and IV nitroglycerin. Follow cardiology input. 2. S/P thoracentesis. FOLLOW CYTOLOGY AND CULTURES No need for antibiotics. 3. We will follow clinical course and make further recommendations. CATALINA NEGRETE MD Nov 16, 2016 11:06
--- NOTE | 2016-11-16 11:06 | PDOC ---
MODERATE SEDATION ASSESSMENT RISKS/ALTERNATIVES Risks/Alternatives Risks and alternatives of this type of sedation and procedure discussed with: RISK/ALTERNATIVES: Patient H & P ON CHART H & P H & P on chart and reviewed for co-morbid conditions and appropriate labs. H&P ON CHART: Yes STATUS PREG STATUS ASSESSED: N/A MEDS/ALLERGIES REVIEWED Meds/Allergies Reviewed Medications and Allergies including time and route of recently administered narcotics and sedatives. MEDS/ALLERGIES REVIEWED: Yes ASA RATING ASA RATING: II AIRWAY ASSESSMENT Airway Assessment Airway patency, oral function limitations, presence of caps, crowns, dentures, partials, and ability to extend neck assessed. AIRWAY ASSESSMENT: Yes MALLAMPATI SCORE MALLAMPATI SCORE: II PRE-SEDATION ASSESSMENT PRE-SEDATION ASSESSMENT: Yes THU LASSITER MD Nov 16, 2016 11:06
--- NOTE | 2016-11-16 12:51 | PDOC ---
PROGRESS NOTES Chief Complaint Chief Complaint Hypoxic respir failure ASSESSMENT AND PLAN: 1. CHF: much improved. IV lasix, BIPAP/O2, nebs. echo with EF 20-25% 2. pleural effusion: s/p tap earlier today, reports improved breathing. awaiting lab results, incl cytology 3. Troponin leak: most likely HTN/CHF related rather than primary CAD. ? further W/U meaningful. 4. HTN: improving with BB; added MARYLOU-I this AM 5. ?PNA: on levaquin empirically 6. Dispo: home w/ HH when cleared by cardiology Vitals Vitals Vital Signs Date Time Temp Pulse Resp B/P Pulse Ox O2 Delivery O2 Flow Rate FiO2 11/16/16 12:00 98.0 63 18 147/70 97 Nasal Cannula 2.0 98.0 Physical Exam General: Alert, Cooperative, No acute distress Heart: Regular rate Lungs: Other (mild rales R) Abdomen: Normal bowel sounds, No tenderness Extremities: No clubbing, No edema Skin: No rashes Labs LABS Laboratory Tests Test 11/16/16 03:30 11/16/16 08:05 Sodium Level 146mmol/L (136-145) Potassium Level 3.6mmol/L (3.5-5.1) Chloride Level 106mmol/L (98-107) Carbon Dioxide Level 31mmol/L (21-32) Anion Gap 9 (6-14) Blood Urea Nitrogen 24mg/dL (7-20) Creatinine 1.0mg/dL (0.6-1.0) Estimated GFR (Cockcroft-Gault) 52.8 Glucose Level 98mg/dL (70-99) Calcium Level 8.6mg/dL (8.5-10.1) Triglycerides Level 65mg/dL (0-150) Cholesterol Level 180mg/dL (0-200) LDL Cholesterol, Calculated 77mg/dL (0-100) VLDL Cholesterol, Calculated 13mg/dL (0-40) HDL Cholesterol 90mg/dL (40-60) Cholesterol/HDL Ratio 2.0 Prothrombin Time 13.8SEC (11.7-14.0) Prothromb Time International Ratio 1.1 (0.8-1.1) Review of Systems Review of Systems feels so much better since ER. further improvement of breathing with tap today LORENA MORRIS MD Nov 16, 2016 12:51
--- NOTE | 2016-11-16 13:33 | RAD ---
Portable chest, AP inspiration and expiration views, 11/16/2016: History: Postthoracentesis evaluation Comparison is made to a study from 11/15/2015. The heart is enlarged. There is calcific plaquing of the aorta. The pulmonary vascularity remains prominent. There is decrease in volume of the right pleural effusion status post thoracentesis. There is a small amount of residual pleural fluid in the right lateral costophrenic angle. There is improved aeration of right lung base. There is a moderate ongoing left basilar opacity compatible with pleural fluid and underlying atelectasis/infiltrate. There is no evidence of pneumothorax. IMPRESSION: 1. Decrease in volume of the moderate sized right pleural effusion status post thoracentesis. 2. Ongoing moderate sized left pleural effusion and underlying atelectasis/infiltrate. 3. No evidence of pneumothorax.
[2016-11-16 14:04] LABS: BF CLARITY HAZY; BF COLOR YELLOW
[2016-11-17 03:00] VITALS: BP 138/72
[2016-11-17 05:58] LABS: BASO # 0.1 x10^3/uL (0.0-0.2); BASO % 1 % (0-3); EOS % 3 % (0-3); HEMATOCRIT 36.1 % (36.0-47.0); HEMOGLOBIN 11.5 g/dL (12.0-15.5); LYMPH % 24 % (24-48); MEAN CORPUSCULAR HEMOGLOBIN 31 pg (25-35); MEAN CORPUSCULAR HGB CONC 32 g/dL (31-37); MEAN CORPUSCULAR VOLUME 98 fL (79-100); MONO % 8 % (0-9); NEUT % 65 % (31-73); PLATELET COUNT 223 x10^3/uL (140-400); RED BLOOD COUNT 3.68 x10^6/uL (3.50-5.40); RED CELL DISTRIBUTION WIDTH 14.5 % (11.5-14.5); WHITE BLOOD COUNT 8.2 x10^3/uL (4.0-11.0)
[2016-11-17 06:10] LABS: CALCIUM 8.3 mg/dL (8.5-10.1); CREATININE 0.8 mg/dL (0.6-1.0); GFR 68.3; MAGNESIUM 2.3 mg/dL (1.8-2.4); POTASSIUM 3.4 mmol/L (3.5-5.1)
[2016-11-17 07:00] VITALS: BP 147/75
--- NOTE | 2016-11-17 07:46 | RAD ---
CT-guided diagnostic and therapeutic right thoracentesis Indication: 86-year-old female with with acute respiratory failure, congestive heart failure, and bilateral large pleural effusions, greater right to left. Image guided right thoracentesis has been requested by pulmonary. Anesthesia: 18 minutes moderate sedation provided utilizing a total of 0.5 mg Versed and 25 mcg fentanyl, IV. The patient was appropriately monitored by a qualified independent observer throughout the time of moderate sedation. Procedure: Informed consent was obtained from the patient. She was placed supine on the CT scanner. Preliminary noncontrast CT images confirmed the presence of large bilateral pleural effusions, greater right to left. Those images also revealed the presence of multiple low-density liver lesions. A skin site suitable for CT-guided thoracentesis was selected and marked along the lateral aspect of lower right hemithorax. That area was prepped and draped in the usual sterile fashion. Using aseptic technique, local anesthesia, and CT guidance, a micropuncture sheath was successfully introduced into the low right lateral pleural space. This sheath was then exchanged over a guidewire for a 6 Slovak drainage catheter. Approximately 1100 cc of yellow-slightly hazy pleural fluid was then easily removed, samples which were submitted to the clinical laboratory per referring rerecording mixer request. Completion CT images documented essentially complete resolution of the right pleural effusion, without pneumothorax. The drainage catheter was removed and a sterile dressing was applied. Patient tolerated the procedure well without apparent complication. Impression: 1. Successful, uneventful CT-guided diagnostic and therapeutic right thoracentesis, as described. 2. Several low-density lesions are noted within visualized portions of liver. Metastatic disease cannot be excluded. PQRS compliance statement: One or more of the following individualized dose reduction techniques was utilized for this CT procedure: 1. Automated exposure control. 2. Adjustment of MA and/or KV according to patient size. 3. Iterative reconstruction technique.
--- NOTE | 2016-11-17 08:12 | PDOC ---
PULMONARY PROGRESS NOTES Subjective LESS SOA, no cough, on 02 at home, no pain Vitals Vital Signs Date Time Temp Pulse Resp B/P Pulse Ox O2 Delivery O2 Flow Rate FiO2 11/17/16 07:47 Nasal Cannula 2.0 11/17/16 07:00 97.8 75 18 147/75 98 97.8 Comments ros as mentioned as above other sys otherwise neg ROS: No Nausea, No Chest Pain, No Abdominal Pain, No Increase Cough General: Alert HEENT: Other (nc at perrl nose clear) Lungs: Other (mild rales R) Cardiovascular: S1, S2 Abdomen: Soft, Non-tender, Other (no mass) Neuro Exam: Alert Extremities: No Edema Skin: Warm Labs Laboratory Tests Test 11/16/16 03:30 11/16/16 08:05 11/16/16 10:45 11/17/16 05:25 Sodium Level 146mmol/L (136-145) 145mmol/L (136-145) Potassium Level 3.6mmol/L (3.5-5.1) 3.4mmol/L (3.5-5.1) Chloride Level 106mmol/L (98-107) 107mmol/L (98-107) Carbon Dioxide Level 31mmol/L (21-32) 31mmol/L (21-32) Anion Gap 9 (6-14) 7 (6-14) Blood Urea Nitrogen 24mg/dL (7-20) 23mg/dL (7-20) Creatinine 1.0mg/dL (0.6-1.0) 0.8mg/dL (0.6-1.0) Estimated GFR (Cockcroft-Gault) 52.8 68.3 Glucose Level 98mg/dL (70-99) 99mg/dL (70-99) Calcium Level 8.6mg/dL (8.5-10.1) 8.3mg/dL (8.5-10.1) Triglycerides Level 65mg/dL (0-150) Cholesterol Level 180mg/dL (0-200) LDL Cholesterol, Calculated 77mg/dL (0-100) VLDL Cholesterol, Calculated 13mg/dL (0-40) HDL Cholesterol 90mg/dL (40-60) Cholesterol/HDL Ratio 2.0 Prothrombin Time 13.8SEC (11.7-14.0) Prothromb Time International Ratio 1.1 (0.8-1.1) Body Fluid Source Pleural Body Fluid Color Yellow Body Fluid Clarity Hazy Body Fluid pH 7.6 Body Fluid Nucleated Cells 290/cmm Body Fluid Mononuclear WBCs (%) 65% Body Fluid Polymorphonuclear Cells 30% Body Fluid Total RBCs Counted 310/cmm Body Fluid Other Cells (%) 5% Body Fluid Glucose 99mg/dL (.) Body Fluid Total Protein 2.1g/dL (.) Body Fluid Lactate Dehydrogenase 82IU/L (.) White Blood Count 8.2x10^3/uL (4.0-11.0) Red Blood Count 3.68x10^6/uL (3.50-5.40) Hemoglobin 11.5g/dL (12.0-15.5) Hematocrit 36.1% (36.0-47.0) Mean Corpuscular Volume 98fL (79-100) Mean Corpuscular Hemoglobin 31pg (25-35) Mean Corpuscular Hemoglobin Concent 32g/dL (31-37) Red Cell Distribution Width 14.5% (11.5-14.5) Platelet Count 223x10^3/uL (140-400) Neutrophils (%) (Auto) 65% (31-73) Lymphocytes (%) (Auto) 24% (24-48) Monocytes (%) (Auto) 8% (0-9) Eosinophils (%) (Auto) 3% (0-3) Basophils (%) (Auto) 1% (0-3) Neutrophils # (Auto) 5.3x10^3uL (1.8-7.7) Lymphocytes # (Auto) 2.0x10^3/uL (1.0-4.8) Monocytes # (Auto) 0.6x10^3/uL (0.0-1.1) Eosinophils # (Auto) 0.2x10^3/uL (0.0-0.7) Basophils # (Auto) 0.1x10^3/uL (0.0-0.2) Magnesium Level 2.3mg/dL (1.8-2.4) Laboratory Tests Test 11/16/16 10:45 11/17/16 05:25 Body Fluid Source Pleural Body Fluid Color Yellow Body Fluid Clarity Hazy Body Fluid pH 7.6 Body Fluid Nucleated Cells 290/cmm Body Fluid Mononuclear WBCs (%) 65% Body Fluid Polymorphonuclear Cells 30% Body Fluid Total RBCs Counted 310/cmm Body Fluid Other Cells (%) 5% Body Fluid Glucose 99mg/dL (.) Body Fluid Total Protein 2.1g/dL (.) Body Fluid Lactate Dehydrogenase 82IU/L (.) White Blood Count 8.2x10^3/uL (4.0-11.0) Red Blood Count 3.68x10^6/uL (3.50-5.40) Hemoglobin 11.5g/dL (12.0-15.5) Hematocrit 36.1% (36.0-47.0) Mean Corpuscular Volume 98fL (79-100) Mean Corpuscular Hemoglobin 31pg (25-35) Mean Corpuscular Hemoglobin Concent 32g/dL (31-37) Red Cell Distribution Width 14.5% (11.5-14.5) Platelet Count 223x10^3/uL (140-400) Neutrophils (%) (Auto) 65% (31-73) Lymphocytes (%) (Auto) 24% (24-48) Monocytes (%) (Auto) 8% (0-9) Eosinophils (%) (Auto) 3% (0-3) Basophils (%) (Auto) 1% (0-3) Neutrophils # (Auto) 5.3x10^3uL (1.8-7.7) Lymphocytes # (Auto) 2.0x10^3/uL (1.0-4.8) Monocytes # (Auto) 0.6x10^3/uL (0.0-1.1) Eosinophils # (Auto) 0.2x10^3/uL (0.0-0.7) Basophils # (Auto) 0.1x10^3/uL (0.0-0.2) Sodium Level 145mmol/L (136-145) Potassium Level 3.4mmol/L (3.5-5.1) Chloride Level 107mmol/L (98-107) Carbon Dioxide Level 31mmol/L (21-32) Anion Gap 7 (6-14) Blood Urea Nitrogen 23mg/dL (7-20) Creatinine 0.8mg/dL (0.6-1.0) Estimated GFR (Cockcroft-Gault) 68.3 Glucose Level 99mg/dL (70-99) Calcium Level 8.3mg/dL (8.5-10.1) Magnesium Level 2.3mg/dL (1.8-2.4) Medications Active Scripts Medications Dose Route/Sig Days Date Category Lasix (Furosemide) 40 Mg Tablet 1 Tab PO DAILY 08/29/16 Rx Levofloxacin 750 Mg Tablet 1 Tab PO DAILY 08/29/16 Rx Aspirin 81 Mg Tab.chew 1 Tab PO DAILY 08/29/16 Rx Comments cxr reviewed, 1. Decrease in volume of the moderate sized right pleural effusion status post thoracentesis. 2. Ongoing moderate sized left pleural effusion and underlying atelectasis/infiltrate. 3. No evidence of pneumothorax. Impression . 1. Acute hypoxemic respiratory failure secondary to acute systolic heart failure, possibly diastolic. 2. Acute systolic heart failure. The patient was undergoing echocardiogram at the bedside, er medical technician reported EF of approximately 15%. 3. Bilateral pleural effusions, right greater than left. transudate 4. Uncontrolled hypertension. 5. Chronic obstructive pulmonary disease. 6. Abnormal x-ray revealing bilateral effusions, right greater than left. Plan . 1. The patient has done well with IV Lasix and IV nitroglycerin. Follow cardiology input. 2. S/P thoracentesis. FOLLOW CYTOLOGY AND CULTURES neg sofar, No need for antibiotics. 3. We will follow clinical course and make further recommendations. 4. cont home 02 5. increase activity 6. keep I<O, ? gentle diuresis 0k to dc per pulm standpoint MAINOR RAMIREZ MD Nov 17, 2016 08:12
[2016-11-17] MEDS: METOPROLOL TART IMMED RELEASE 25 MG TABLET PO SCH (08:37)
[2016-11-17] MEDS: LISINOPRIL 5 MG TABLET. PO SCH (08:38)
[2016-11-17 11:00] VITALS: BP 131/60
[2016-11-17] MEDS ORDERED: LISI-338 PO (14:56)
[2016-11-17] MEDS ORDERED: METO25TA4 PO (14:56)
[2016-11-17 15:00] VITALS: BP 127/64
--- NOTE | 2016-11-18 22:33 | DS ---
DATE OF DISCHARGE: 11/17/2016 CHIEF COMPLAINT: Hypoxic respiratory failure. HOSPITAL COURSE: The patient is an 86-year-old frail woman with suspected CHF, never diagnosed who presented to the Emergency Room with acute hypoxic failure. She actually initially required BiPAP to help her through. Chest x-ray was consistent with CHF and she was given IV Lasix with good results. An echocardiogram showed an EF of 20-25% and Cardiology discussed further workup with her, which she declined. On initial chest x-ray, she was also found with loculated pleural effusion for which she underwent pleurocentesis in Interventional Radiology. Cytology was sent, results were not available at the time of discharge. However, during the ultrasound for the procedure, several lesions in the liver were noted consistent with a metastatic disease. This was discussed with the patient and her niece. Further workup on an outpatient basis under the care of Dr. Maryam Sam will be arranged. The patient was deemed stable for discharge on the . PHYSICAL EXAMINATION: VITAL SIGNS: Blood pressure of 127/64, heart rate of 84, respiratory rate at 18. She is afebrile. GENERAL: This is a frail, malnourished 86-year-old woman, alert and oriented, in no acute distress. HEENT: Shows no scleral icterus, positive temporal wasting. NECK: Supple. LUNGS: Fairly clear bilaterally. HEART: Regular rate and rhythm. ABDOMEN: Has positive bowel sounds, soft, nontender. EXTREMITIES: Show no edema. DISCHARGE DIAGNOSES: Congestive heart failure, hypertensive urgency, liver metastases. DISCHARGE DISPOSITION: To home. DISCHARGE CONDITION: Improved. DISCHARGE MEDICATIONS: Please refer to MAR. DISCHARGE INSTRUCTIONS: The patient will follow up with Dr. Paulino in [address] Maryam Sam as soon as appointment is arranged. LORENA MORRIS MD DR: UR/nts JOB#: [id number] / [id number] PATRIC
--- NOTE | 2016-11-20 11:56 | PATHOLOGY ---
CYTOPATHOLOGY REPORT CLINICAL HISTORY: Right pleural effusion. SPECIMEN(S) RECEIVED: A.Pleural fluid FINAL DIAGNOSIS: Pleural fluid, ThinPrep and cell block: - No malignant cells identified. Few mesothelial cells and inflammatory cells identified. (JPM:csd; d/t: 11/20/2016) PATHOLOGIST: Musa Shanks M.D. REPORT ELECTRONICALLY SIGNED BY: Musa Shanks M.D. DATE/TIME: 11/20/2016 11:55 GROSS PATHOLOGY: A. Pleural fluid: The specimen is submitted unfixed, labeled "Willow Hyman". Received by the Cytology Department is 40 mL of clear yellow fluid. One ThinPrep slide and a cell block were prepared. (clt 11.17.2016) SHOT TUBE MACHINE TENDER(S): PRETTY Branch(ASCP) INITIAL CPT CODE(S): A; 25434, 05589 Professional services performed [place] [facility] [address] Technical services performed by [facility] at [address] [place] [address], [address], [place] [address]. PATIENT: ZAMZAM HYMAN /AGE: 1 1930 (Age: 86) SEX: F PATIENT #: [id number] ALT CASE #: SPECIMEN COLLECTION DATE: 11/16/2016 SPECIMEN RECEIVED DATE: 11/17/[address] [facility] [address] [place] [address], [address] [place] [address] PHONE: [phone] DIRECTOR: Ramsey Mackenzie M.D. * * * END OF REPORT * * *
== END 2016-11-17 15:45 | disposition home or self-care (01) | DRG 189 ==
LOC: ER 16:55 → 2 NORTH 17:38
PROVIDERS: ADMIT Internal Medicine Hematology & Oncology; ATTEND Internal Medicine Hematology & Oncology
PROC: 0W993ZX Drainage of Right Pleural Cavity, Percutaneous Approach, Diagnostic (ICD-10-PCS; principal; 2016-11-15)
DX: J96.01 Acute respiratory failure with hypoxia (principal); I50.43 Acute on chronic combined systolic (congestive) and diastolic (congestive) heart failure; J90 Pleural effusion, not elsewhere classified; E46 Unspecified protein-calorie malnutrition; Z68.1 Body mass index [BMI] 19.9 or less, adult; J44.1 Chronic obstructive pulmonary disease with (acute) exacerbation; C78.7 Secondary malignant neoplasm of liver and intrahepatic bile duct; I16.0 Hypertensive urgency; I11.0 Hypertensive heart disease with heart failure; Z88.0 Allergy status to penicillin; Z88.2 Allergy status to sulfonamides
CPT/HCPCS: 32555; 36415; 36600; 71010; 71035; 80048; 80053; 80061; 82805; 82945; 82947; 83605; 83615; 83735; 83880; 83986; 84155; 84157; 84443; 84484; 85007; 85027; 85610; 87040; 87071; 87075; 87205; 87804; 89050; 90686; 93005; 93306; 94640; 94660; 94760; 96374; 96375; A4215; C1729; C1892; C1894; J1956; J2250; J2930; J3010; J3490; J7620; 99285-25

== ENCOUNTER 2021-05-17 15:58 | Inpatient (IN) | payer MEDICARE ==
[~2021-05-17] VITALS: Ht 157.5 cm; Wt 40.1 kg
[~2021-05-17 15:58] MED LIST changes: +ASPI-630 PO; -ASPI81TA2 PO; +LISI-517 PO; +METO25TA4 PO
--- NOTE | 2021-05-17 16:15 | PHYS DOC ---
Past Medical History Past Medical History: Hypertension Additional Past Medical Histor: BLEEDING ULCERS Past Surgical History: No Surgical History Smoking Status: Never Smoker Alcohol Use: None Drug Use: None General Adult EDM: Chief Complaint: GI PROBLEM HPI: HPI: 89-year-old female past medical history of CHF on aspirin and Lasix, COPD, hypertension, hyperlipidemia and hypothyroidism, presents to the ED BIBEMS with concern for bright red bloody bowel movement earlier this morning. Per EMS patient's family is positive for Covid. Pt states "where's February, my granddaughter, she should be here to help answer questions." Pt a very poor historian and has no compliants in ed room. Review of Systems: Review of Systems: Constitutional: Denies fever or chills. [] Eyes: Denies change in visual acuity. [] HENT: Denies nasal congestion or sore throat. [] Respiratory: Denies cough or shortness of breath. [] Cardiovascular: Denies chest pain or edema. [] GI: Denies nausea, vomiting, or diarrhea. [] : Denies dysuria or hematuria Musculoskeletal: Denies back pain or joint pain. [] Integument: Denies rash or diaphoresis Neurologic: Denies headache, focal weakness or sensory changes. [] Endocrine: Denies polyuria or polydipsia. [] Lymphatic: Denies swollen glands. [] Psychiatric: Denies depression or anxiety. [] Heart Score: C/O Chest Pain: No Risk Factors: Risk Factors: DM, Current or recent (<one month) smoker, HTN, HLP, family history of CAD, obesity. Risk Scores: Score 0 - 3: 2.5% MACE over next 6 weeks - Discharge Home Score 4 - 6: 20.3% MACE over next 6 weeks - Admit for Clinical Observation Score 7 - 10: 72.7% MACE over next 6 weeks - Early Invasive Strategies Allergies: Allergies: Allergies Coded Allergies Type Severity Reaction Last Updated Verified Penicillins Allergy Intermediate 11/15/16 Yes Sulfa (Sulfonamide Antibiotics) Allergy Intermediate 11/15/16 Yes Physical Exam: PE: Constitutional: thin, afebrile HENT: Normocephalic, atraumatic, Eyes: EOMI, conjunctiva normal, no discharge. Neck: Normal range of motion, supple, Cardiovascular: S1/2 present, regular rhythm Lungs & Thorax: Speaking in full sentences, bilateral equal chest rise, no tachypnea or increased work of breathing, requiring nasal cannula Abdomen: soft, no tenderness, Skin: Warm, dry, no erythema, no rash. [] Back: No tenderness, no CVA tenderness. [] Extremities: No tenderness, no cyanosis, no lower extremity edema Neurologic: Alert and oriented X 3, normal motor function, normal sensory function, no focal deficits noted. [] Psychologic: Affect normal, judgement normal, mood normal. [] Rectal: thrombosed/not painful external hemorrhoid, no melena or hematochezia Current Patient Data: Vital Signs: Vital Signs Date Time Temp Pulse Resp B/P (MAP) Pulse Ox O2 Delivery O2 Flow Rate FiO2 05/17/21 16:00 98.6 65 24 221/103 (142) 100 Room Air 98.6 EKG: EKG: Sinus rhythm 71 bpm, no axis deviation borderline QRS 150, QTC 49, left bundle branch block, T wave inversion in V5, V6 lead II and aVL and lead I, no ST elevation ST depression Radiology/Procedures: Radiology/Procedures: IMAGING REPORT Signed PATIENT: DIGNA HYMAN AACCOUNT: [id number] : 1930 LOCATION: ER AGE: 89 SEX: F EXAM STATUS: REG ER ORD. PHYSICIAN: DOE HERCULES DO REASON: bloody stpp; PROCEDURE: CHEST AP ONLY EXAM: CHEST 1 VIEW History: Bloody sputum COMPARISON: 08/29/2016 TECHNIQUE: Single portable radiograph of the chest FINDINGS: Mild cardiomegaly. Moderate prominent appearing bilateral digital lung markings likely congestive changes or interstitial infiltrates. Probable small bilateral pleural effusions. . IMPRESSION: Moderate prominent appearing bilateral interstitial lung markings likely congestive changes or interstitial infiltrates. Electronically signed by: Juaquin Klein MD (05/17/2021 5:18 PM) [id number] DICTATED and SIGNED BY: JUAQUIN KLEIN MD DATE: 05/17/21 [id number] Course & Med Decision Making: Course & Med Decision Making Pertinent Labs and Imaging studies reviewed. (See chart for details) COVID-19 CRITERIA: The patient was evaluated during the global COVID-19 pandemic, and that diagnosis was suspected/considered upon their initial presentation. Their evaluation, treatment and testing was consistent with current guidelines for patients who present with complaints or symptoms that may be related to COVID-19. Concern for covid-19 infection, hypoxia requiring nasal cannula (90% on 2-3L NC) in the setting of elevated troponin, NSTEMI and acute kidney injury. Patient also with uncontrolled hypertension and thrombosed external hemorrhoids with no signs of active hematochezia or GI bleeding. Will admit for further medical management. Dragon Disclaimer: Dragon Disclaimer: This electronic medical record was generated, in whole or in part, using a voice recognition dictation system. Departure Departure Impression: Primary Impression: COVID-19 Additional Impressions: Hypoxia NSTEMI (non-ST elevated myocardial infarction) DEMETRI (acute kidney injury) Disposition: ADMITTED INPATIENT Admitting Physician: CELESTINA (Dr. Park) Condition: GUARDED Referrals: NO PCP (PCP) DOE HERCULES DO May 17, 2021 16:15
[2021-05-17 16:34] LABS: BASO % 0 % (0-3); EOS % 0 % (0-3); HEMATOCRIT 50.6 % (36.0-47.0); HEMOGLOBIN 16.6 g/dL (12.0-15.5); LYMPH # 0.5 x10^3/uL (1.0-4.8); LYMPH % 7 % (24-48); MEAN CORPUSCULAR HEMOGLOBIN 32 pg (25-35); MEAN CORPUSCULAR HGB CONC 33 g/dL (31-37); MEAN CORPUSCULAR VOLUME 97 fL (79-100); MONO # 0.4 x10^3/uL (0.0-1.1); MONO % 5 % (0-9); NEUT # 6.6 x10^3/uL (1.8-7.7); NEUT % 88 % (31-73); PLATELET COUNT 167 x10^3/uL (140-400); RED BLOOD COUNT 5.21 x10^6/uL (3.50-5.40); RED CELL DISTRIBUTION WIDTH 16.6 % (11.5-14.5); WHITE BLOOD COUNT 7.5 x10^3/uL (4.0-11.0)
[2021-05-17 16:48] LABS: CALCIUM 8.1 mg/dL (8.5-10.1); CREATININE 1.2 mg/dL (0.6-1.0); GFR 42.4; POTASSIUM 3.3 mmol/L (3.5-5.1)
[2021-05-17 16:54] LABS: TOTAL BILIRUBIN 1.6 mg/dL (0.2-1.0)
[2021-05-17 17:13] LABS: ALBUMIN 1.8 g/dL (3.4-5.0)
--- NOTE | 2021-05-17 17:20 | RAD ---
EXAM: CHEST 1 VIEW History: Bloody sputum COMPARISON: 08/29/2016 TECHNIQUE: Single portable radiograph of the chest FINDINGS: Mild cardiomegaly. Moderate prominent appearing bilateral digital lung markings likely con gestive changes or interstitial infiltrates. Probable small bilateral pleural effusions. . IMPRESSION: Moderate prominent appearing bilateral interstitial lung markings likely congestive changes or inters titial infiltrates. Electronically signed by: Juaquin Klein MD (05/17/2021 5:18 PM) [id number]
[2021-05-17 17:25] LABS: ALBUMIN/GLOBULIN RATIO 0.4 (1.0-1.7); TOTAL PROTEIN 6.1 g/dL (6.4-8.2)
--- NOTE | 2021-05-17 17:51 | EKG ---
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
--- NOTE | 2021-05-17 18:03 | RAD ---
CT abdomen and pelvis without contrast PQRS statement: CT scans at this facility use dose reduction including either automated exposure cont rol, iterative reconstructions, and /or weight based radiation dosing via mA and kV modification when appropriate to reduce radiation dose to as low as reasonably achievable. HISTORY: Hematochezia. Blood in stool. Abdomen findings: Cardiomegaly. Coronary calcified plaque. Mild to moderate bilateral pleural effusio ns mild passive atelectasis at the lung bases as well as mild groundglass densities and interstitial reticulation. Lumbar scoliosis and disc disease with spinal canal and neural foraminal stenoses. Righ t renal lower pole 2 cm cyst density 10 units. Left kidney, adrenals, pancreas, spleen unremarkable. Gallbladder poorly visualized may be surgically absent or collapsed. There are hypodense liver cysts with densities of less than 15 units of which have peripheral calcification. There is a bowel tubular structure right posterolateral the cecum there appears be some surrounding edema, this is likely a s mall bowel loop. No bowel obstruction. The appendix appears to be separate anterior of this bowel loo p right lateral of the cecum and has a normal diameter of 4 mm. Aortoiliac artery and abdominal arter y calcified plaque. No abdominal free fluid. Pelvis findings: Extensive rectosigmoid diverticulosis without evidence of diverticulitis. Bladder wa ll is thickened. Uterus unremarkable. Ovaries not visualized likely atrophic and obscured by surround ing pelvic bowel loops. No pelvic fluid. IMPRESSION: 1. Edema surrounding the terminal ileum suggestive of distal ileitis. No bowel obstruction. 2. Appendix is negative. 3. Rectosigmoid diverticulosis without evidence of diverticulitis. 4. Mild/moderate pleural effusions and dependent lower lobe groundglass densities and interstitial re ticulation which may represent pulmonary edema. Atypical infection or pneumonitis would be additional considerations. Electronically signed by: Paul Vuong MD (05/17/2021 6:01 PM) [id number]
[2021-05-17 18:57] LABS: PROTHROMBIN TIME PATIENT 12.9 SEC (11.7-14.0)
[2021-05-17 19:18] LABS: % BANDS 2 % (0-9); % LYMPHS 3 % (24-48); % MONOS 2 % (0-10); % SEGS 93 % (35-66); NUCLEATED RBC 1
[2021-05-17 19:19] LABS: ANISOCYTOSIS SLIGHT; PLT ESTIMATE ADEQUATE (ADEQUATE); POLYCHROMASIA SLIGHT
[2021-05-17 21:30] VITALS: BP 212/102
[2021-05-17] MEDS ORDERED: hydrALAZINE 20 MG/ML VIAL. IVP PRN (22:15)
[2021-05-17 22:30] VITALS: BP 202/98
[2021-05-18 03:30] VITALS: BP 191/96
[2021-05-18 07:00] VITALS: BP 196/95
[2021-05-18] MEDS: LISINOPRIL 5 MG TABLET. PO SCH (08:11)
[2021-05-18] MEDS: FUROSEMIDE 40 MG TABLET. PO SCH (08:12)
[2021-05-18] MEDS: ASPIRIN CHEWABLE 81 MG TABLET. PO SCH (08:12)
[2021-05-18] MEDS: METOPROLOL TART IMMED RELEASE 25 MG TABLET. PO SCH ×2 (08:12→20:24)
--- NOTE | 2021-05-18 08:49 | PDOC1 ---
History and Physical Date of Admission Date of Admission DATE: 05/18/21 TIME: 08:46 Identification/Chief Complaint Chief Complaint CONFUSION, RECTAL BLEEDING, COUGH History of Present Illness History of Present Illness poor historian and has no complaints except SOA, rectal bleeding Covid pos in er [employer] hx bright red bloody bowel movement AM OF 9-14 . Per EMS patient's family is positive for Covid Rectosigmoid diverticulosis ON RECENT CT / confused (AMS) and its not her baseline / only oriented to self RECENT ECHO IN 2017 / Left ventricle systolic function is severely impaired. The Ejection Fraction is 20-25%./ ECHO 2017 COVID POS IN ER WITH ACUTE METABOLIC ENCEPHALOPATHY / Hematochezia. Blood in stool. STARTED ON IV DEXAMETHASONE 6 MG IV TROPONIN I 0.631 IN er Several low-density lesions are noted within visualized portions of liver. / Metastatic disease cannot be excluded. [address] abd Edema surrounding the terminal ileum suggestive of distal ileitis. No bowel obstruction. Appendix is negative. / Rectosigmoid diverticulosis without evidence of diverticulitis. Mild/moderate pleural effusions and dependent lower lobe groundglass densities and interstitial reticulation which may represent pulmonary edema PLAN == ADMIT // consult pulm med / consult cardiology / o2 support / consult nephrology /dvt prophylaxis / hold nephrotoxic meds Past Medical History Past Medical History Past Medical History Past Medical History Past Medical History: Hypertension Additional Past Medical Histor: BLEEDING ULCERS Past Surgical History: No Surgical History Smoking Status: Never Smoker Alcohol Use: None Drug Use: None Cardiovascular: HTN, Hyperlipidemia Pulmonary: COPD CENTRAL NERVOUS SYSTEM: Dementia Musculoskeletal: Osteoarthritis, Weakness Past Surgical History Past Surgical History: No pertinent history Family History Family History: High Cholestrol, Hypertension Social History Smoke: No ALCOHOL: none Drugs: None Current Problem List Problem List Problems Medical Problems: (1) DEMETRI (acute kidney injury) Status: Acute (2) COVID-19 Status: Acute (3) Hypoxia Status: Acute (4) NSTEMI (non-ST elevated myocardial infarction) Status: Acute (5) Person under investigation for COVID-19 Status: Acute Current Medications Current Medications Current Medications Aspirin (Aspirin Chewable) 81 mg DAILY PO Last administered on 05/18/21at 08:12; Start 05/18/21 at 09:00 Furosemide (Lasix) 40 mg DAILY PO Last administered on 05/18/21at 08:12; Start 05/18/21 at 09:00 Lisinopril (Prinivil) 5 mg DAILY PO Last administered on 05/18/21at 08:11; Start 05/18/21 at 09:00 Metoprolol Tartrate (Lopressor) 12.5 mg BID PO Last administered on 05/18/21at 08:12; Start 05/18/21 at 09:00 Hydralazine HCl (Apresoline Inj) 10 mg PRN Q4HRS PRN IVP ELEVATED BP, SEE COMMENTS Last administered on 05/18/21at 00:00; Start 05/17/21 at 22:15 Active Scripts Active Metoprolol Tartrate 25 Mg Tablet 12.5 Mg PO BID Lisinopril 5 Mg Tablet 5 Mg PO DAILY Lasix (Furosemide) 40 Mg Tablet 1 Tab PO DAILY Levofloxacin 750 Mg Tablet 1 Tab PO DAILY Aspirin 81 Mg Tab.chew 1 Tab PO DAILY Allergies Allergies: Coded Allergies: Penicillins (Verified Allergy, Intermediate, 11/15/16) Sulfa (Sulfonamide Antibiotics) (Verified Allergy, Intermediate, 11/15/16) ROS Review of System 14 pt ros otherwise neg General: YES: Fatigue; No: Chills, Night Sweats, Malaise, Appetite, Other PSYCHOLOGICAL ROS: YES: Concentration difficultie, Disorientation, Memory difficulties; No: Anxiety, Behavioral Disorder, Decreased libido, Depression, Hallucinations, Hostility, Irritablity, Mood Swings, Obsessive thoughts, Physical abuse, Sexual abuse, Sleep disturbances, Suicidal ideation, Other Eyes: No Blurry vision, No Decreased vision, No Double vision, No Dry eyes, No Excessive tearing, No Eye Pain, No Itchy Eyes, No Loss of vision, No Photophobia, No Scotomata, No Uses contacts, No Uses glasses, No Other HEENT: No: Heacaches, Visual Changes, Hearing change, Nasal congestion, Nasal discharge, Oral lesions, Sinus pain, Sore Throat, Epistaxis, Sneezing, Snoring, Tinnitus, Vertigo, Vocal changes, Other ALLERGY AND IMMUNOLOGY: YES: Hives; No: Insect Bite Sensitivity, Itchy/Watery Eyes, Nasal Congestion, Post Nasal Drip, Seasonal Allergies, Other Hematological and Lymphatic: YES: Bleeding Problems; No: Blood Clots, Blood Transfusions, Brusing, Night Sweats, Pallor, Swollen Lymph Nodes, Other ENDOCRINE: No: Breast Changes, Galactorrhea, Hair Pattern Changes, Hot Flashes, Malaise/lethargy, Mood Swings, Palpitations, Polydipsia/polyuria, Skin Changes, Temperature Intolerance, Unexpected Weight Changes, Other Breast: No New/Changing Breast Lumps, No Nipple changes, No Nipple discharge, No Other Respiratory: YES: Shortness of breath, SOB with excertion Cardiovascular: No Chest Pain, No Palpitations, No Orthopnea, No Paroxysmal Noc. Dyspnea, No Edema, No Lt Headedness, No Other Gastrointestinal: No Nausea, No Vomiting, No Abdominal Pain, No Diarrhea, No Constipation, No Melena, No Hematochezia, No Other Genitourinary: No Dysuria, No Frequency, No Incontinence, No Hematuria, No Retention, No Discharge, No Urgency, No Pain, No Flank Pain, No Other, No , No , No , No , No , No , No Musculoskeletal: Yes Joint Stiffness; No Gait Disturbance, No Joint Pain, No Joint Swelling, No Muscle Pain, No Muscular Weakness, No Pain In:, No Swelling In:, No Other Neurological: Yes Confusion; No Behavorial Changes, No Bowel/Bladder ControlChng, No Dizziness, No Gait Disturbance, No Headaches, No Impaired Coord/balance, No Memory Loss, No Numbness/Tingling, No Seizures, No Speech Problems, No Tremors, No Visual Changes, No Weakness, No Other Skin: Yes Dry Skin; No Eczema, No Hair Changes, No Lumps, No Mole Changes, No Mottling, No Nail Changes, No Pruritus, No Rash, No Skin Lesion Changes, No Other, No Acne Physical Exam General: Cooperative, mild distress, Other (CONFUSED) HEENT: Atraumatic, EOMI Heart: no gallops Breasts: Not examined Abdomen: Normal bowel sounds, Soft, No tenderness Rectal Exam: not examined Extremities: No clubbing, No cyanosis Neuro: Cranial nerves 3-12 NL Vitals Vitals Vital Signs Date Time Temp Pulse Resp B/P (MAP) Pulse Ox O2 Delivery O2 Flow Rate FiO2 05/18/21 08:12 77 191/96 05/18/21 08:05 Nasal Cannula 5.0 05/18/21 07:00 98.0 22 96 98.0 Labs Labs Laboratory Tests Test 05/17/21 16:25 05/17/21 17:45 05/17/21 18:30 05/17/21 18:35 White Blood Count 7.5 x10^3/uL (4.0-11.0) Red Blood Count 5.21 x10^6/uL (3.50-5.40) Hemoglobin 16.6 g/dL (12.0-15.5) Hematocrit 50.6 % (36.0-47.0) Mean Corpuscular Volume 97 fL (79-100) Mean Corpuscular Hemoglobin 32 pg (25-35) Mean Corpuscular Hemoglobin Concent 33 g/dL (31-37) Red Cell Distribution Width 16.6 % (11.5-14.5) Platelet Count 167 x10^3/uL (140-400) Neutrophils (%) (Auto) 88 % (31-73) Lymphocytes (%) (Auto) 7 % (24-48) Monocytes (%) (Auto) 5 % (0-9) Eosinophils (%) (Auto) 0 % (0-3) Basophils (%) (Auto) 0 % (0-3) Neutrophils # (Auto) 6.6 x10^3/uL (1.8-7.7) Lymphocytes # (Auto) 0.5 x10^3/uL (1.0-4.8) Monocytes # (Auto) 0.4 x10^3/uL (0.0-1.1) Eosinophils # (Auto) 0.0 x10^3/uL (0.0-0.7) Basophils # (Auto) 0.0 x10^3/uL (0.0-0.2) Segmented Neutrophils % 93 % (35-66) Band Neutrophils % 2 % (0-9) Lymphocytes % 3 % (24-48) Monocytes % 2 % (0-10) Nucleated Red Blood Cells 1 Platelet Estimate Adequate (ADEQUATE) Polychromasia Slight Anisocytosis Slight Sodium Level 141 mmol/L (136-145) Potassium Level 3.3 mmol/L (3.5-5.1) Chloride Level 100 mmol/L (98-107) Carbon Dioxide Level 27 mmol/L (21-32) Anion Gap 14 (6-14) Blood Urea Nitrogen 25 mg/dL (7-20) Creatinine 1.2 mg/dL (0.6-1.0) Estimated GFR (Cockcroft-Gault) 42.4 BUN/Creatinine Ratio 21 (6-20) Glucose Level 78 mg/dL (70-99) Calcium Level 8.1 mg/dL (8.5-10.1) Total Bilirubin 1.6 mg/dL (0.2-1.0) Aspartate Amino Transf (AST/SGOT) 48 U/L (15-37) Alanine Aminotransferase (ALT/SGPT) 15 U/L (14-59) Alkaline Phosphatase 64 U/L (46-116) Troponin I Quantitative 0.163 ng/mL (0.000-0.055) Total Protein 6.1 g/dL (6.4-8.2) Albumin 1.8 g/dL (3.4-5.0) Albumin/Globulin Ratio 0.4 (1.0-1.7) Lipase 327 U/L (73-393) SARS-CoV-2 Antigen (Rapid) Positive (NEGATIVE) XV-Bgs-L-Type Natriuretic Peptide > 97607 pg/mL (0-449) Prothrombin Time 12.9 SEC (11.7-14.0) Prothromb Time International Ratio 1.0 (0.8-1.1) Activated Partial Thromboplast Time 28 SEC (24-38) Lactic Acid Level 1.2 mmol/L (0.4-2.0) Laboratory Tests Test 05/17/21 16:25 05/17/21 17:45 05/17/21 18:30 05/17/21 18:35 White Blood Count 7.5 x10^3/uL (4.0-11.0) Red Blood Count 5.21 x10^6/uL (3.50-5.40) Hemoglobin 16.6 g/dL (12.0-15.5) Hematocrit 50.6 % (36.0-47.0) Mean Corpuscular Volume 97 fL (79-100) Mean Corpuscular Hemoglobin 32 pg (25-35) Mean Corpuscular Hemoglobin Concent 33 g/dL (31-37) Red Cell Distribution Width 16.6 % (11.5-14.5) Platelet Count 167 x10^3/uL (140-400) Neutrophils (%) (Auto) 88 % (31-73) Lymphocytes (%) (Auto) 7 % (24-48) Monocytes (%) (Auto) 5 % (0-9) Eosinophils (%) (Auto) 0 % (0-3) Basophils (%) (Auto) 0 % (0-3) Neutrophils # (Auto) 6.6 x10^3/uL (1.8-7.7) Lymphocytes # (Auto) 0.5 x10^3/uL (1.0-4.8) Monocytes # (Auto) 0.4 x10^3/uL (0.0-1.1) Eosinophils # (Auto) 0.0 x10^3/uL (0.0-0.7) Basophils # (Auto) 0.0 x10^3/uL (0.0-0.2) Segmented Neutrophils % 93 % (35-66) Band Neutrophils % 2 % (0-9) Lymphocytes % 3 % (24-48) Monocytes % 2 % (0-10) Nucleated Red Blood Cells 1 Platelet Estimate Adequate (ADEQUATE) Polychromasia Slight Anisocytosis Slight Sodium Level 141 mmol/L (136-145) Potassium Level 3.3 mmol/L (3.5-5.1) Chloride Level 100 mmol/L (98-107) Carbon Dioxide Level 27 mmol/L (21-32) Anion Gap 14 (6-14) Blood Urea Nitrogen 25 mg/dL (7-20) Creatinine 1.2 mg/dL (0.6-1.0) Estimated GFR (Cockcroft-Gault) 42.4 BUN/Creatinine Ratio 21 (6-20) Glucose Level 78 mg/dL (70-99) Calcium Level 8.1 mg/dL (8.5-10.1) Total Bilirubin 1.6 mg/dL (0.2-1.0) Aspartate Amino Transf (AST/SGOT) 48 U/L (15-37) Alanine Aminotransferase (ALT/SGPT) 15 U/L (14-59) Alkaline Phosphatase 64 U/L (46-116) Troponin I Quantitative 0.163 ng/mL (0.000-0.055) Total Protein 6.1 g/dL (6.4-8.2) Albumin 1.8 g/dL (3.4-5.0) Albumin/Globulin Ratio 0.4 (1.0-1.7) Lipase 327 U/L (73-393) SARS-CoV-2 Antigen (Rapid) Positive (NEGATIVE) VS-Lln-O-Type Natriuretic Peptide > 55885 pg/mL (0-449) Prothrombin Time 12.9 SEC (11.7-14.0) Prothromb Time International Ratio 1.0 (0.8-1.1) Activated Partial Thromboplast Time 28 SEC (24-38) Lactic Acid Level 1.2 mmol/L (0.4-2.0) Images Images CYTOPATHOLOGY REPORT CLINICAL HISTORY: Right pleural effusion. SPECIMEN(S) RECEIVED: A.Pleural fluid FINAL DIAGNOSIS: Pleural fluid, ThinPrep and cell block: - No malignant cells identified. Few mesothelial cells and inflammatory cells identified. (JPM:csd; d/t: 11/20/2016) PATHOLOGIST: Musa Shanks M.D. REPORT ELECTRONICALLY SIGNED BY: Musa Shanks M.D. DATE/TIME: 11/20/2016 11:55 GROSS PATHOLOGY: A. Pleural fluid: The specimen is submitted unfixed, labeled "Willow Garcia". Received by the Cytology Department is 40 mL of clear yellow fluid. One ThinPrep slide and a cell block were prepared. (clt 11.17.2016) BUSINESS INTEGRATION ANALYST(S): PRETTY Branch(ASCP) INITIAL CPT CODE(S): A; 23368, 37218 Professional services performed by [facility] at [address] [address] Technical services performed by [facility] at [address] [place] [address], [address], [place] [address]. PATIENT: ZAMZAM GARCIA /AGE: 1 1930 (Age: 86) SEX: F LEFT VENTRICLE The Left Ventricle is mildly dilated. There is normal left ventricular wall thickness. Left ventricle systolic function is severely impaired. The Ejection Fraction is 20-25%. There is severe global hypokinesis of the left ventricle with anterior wall/septal and apical predominance. Transmitral Doppler flow pattern is Grade I-abnormal relaxation pattern. No left ventricle thrombus noted on this study. RIGHT VENTRICLE The right ventricle is normal size. The right ventricular systolic function is normal. ATRIA The left atrium is moderately dilated. The right atrium size is normal. The interatrial septum is intact with no evidence for an atrial septal defect or pat ent foramen ovale as noted on 2-D or Doppler imaging. AORTIC VALVE The aortic valve is mildly sclerotic. The aortic valve is trileaflet. Doppler and Color Flow revealed mild aortic regurgitation. There is no significant aortic valvular stenosis. MITRAL VALVE Mitral annular calcification is severe. The mitral valve leaflets are thickened. There is no evidence of mitral valve prolapse. There is no mitral valve stenosis. Doppler and Color Flow revealed mild mitral regurgitation. TRICUSPID VALVE Doppler and Color Flow revealed trace tricuspid regurgitation. There is no tricuspid valve stenosis. PULMONIC VALVE Doppler and Color Flow revealed trace pulmonic valvular regurgitation. There is no pulmonic valvular stenosis. GREAT VESSELS The aortic root is normal in size. The ascending aorta is normal in size. The IVC is normal in size and collapses >50% with inspiration. PERICARDIAL EFFUSION There are large bilateral pleural effusions. There is a trace loculated posterior pericardial effusion. Critical Notification Critical Value: No <Conclusion> There is severe global hypokinesis of the left ventricle with anterior wall/ septal and apical predominance. Doppler and Color Flow revealed mild aortic regurgitation. There are large bilateral pleural effusions. There is a trace loculated posterior pericardial effusion. Left ventricle systolic function is severely impaired. The Ejection Fraction is 20-25%. DICTATED and SIGNED BY: YASMINE ODOM MD DATE: 11/15/16 1636 CC: YASMINE ODOM MD; ROSA ISELA WATTS DO; NO PCP ~ PATIENT: WILLOW GARCIA AACCOUNT: [id number] : 1930 LOCATION: ER AGE: 89 SEX: F EXAM STATUS: REG ER ORD. PHYSICIAN: DOE HERCULES DO REASON: bloody stpp; PROCEDURE: CHEST AP ONLY EXAM: CHEST 1 VIEW History: Bloody sputum COMPARISON: 08/29/2016 TECHNIQUE: Single portable radiograph of the chest FINDINGS: Mild cardiomegaly. Moderate prominent appearing bilateral digital lung markings likely congestive changes or interstitial infiltrates. Probable small bilateral pleural effusions. . IMPRESSION: Moderate prominent appearing bilateral interstitial lung markings likely congestive changes or interstitial infiltrates. Electronically signed by: Juaquin Leal MD (05/17/2021 5:18 PM) [id number] DICTATED and SIGNED BY: JUAQUIN LEAL MD DATE: 05/17/21 [id number] PATIENT: WILLOW GARCIA AACCOUNT: [id number] : 1930 LOCATION: ER AGE: 89 SEX: F EXAM STATUS: REG ER ORD. PHYSICIAN: DOE HERCULES DO REASON: hematochezia PROCEDURE: CT ABDOMEN PELVIS WO CONTRAST CT abdomen and pelvis without contrast PQRS statement: CT scans at this facility use dose reduction including either automated exposure control, iterative reconstructions, and /or weight based radiation dosing via mA and kV modification when appropriate to reduce radiation dose to as low as reasonably achievable. HISTORY: Hematochezia. Blood in stool. Abdomen findings: Cardiomegaly. Coronary calcified plaque. Mild to moderate bilateral pleural effusions mild passive atelectasis at the lung bases as well as mild groundglass densities and interstitial reticulation. Lumbar scoliosis and disc disease with spinal canal and neural foraminal stenoses. Right renal lower pole 2 cm cyst density 10 units. Left kidney, adrenals, pancreas, spleen unremarkable. Gallbladder poorly visualized may be surgically absent or collapsed. There are hypodense liver cysts with densities of less than 15 units of which have peripheral calcification. There is a bowel tubular structure right posterolateral the cecum there appears be some surrounding edema, this is likely a small bowel loop. No bowel obstruction. The appendix appears to be separate anterior of this bowel loop right lateral of the cecum and has a normal diameter of 4 mm. Aortoiliac artery and abdominal artery calcified plaque. No abdominal free fluid. Pelvis findings: Extensive rectosigmoid diverticulosis without evidence of diverticulitis. Bladder wall is thickened. Uterus unremarkable. Ovaries not visualized likely atrophic and obscured by surrounding pelvic bowel loops. No pelvic fluid. IMPRESSION: 1. Edema surrounding the terminal ileum suggestive of distal ileitis. No bowel obstruction. 2. Appendix is negative. 3. Rectosigmoid diverticulosis without evidence of diverticulitis. 4. Mild/moderate pleural effusions and dependent lower lobe groundglass densities and interstitial reticulation which may represent pulmonary edema. Atypical infection or pneumonitis would be additional considerations. Electronically signed by: Gladys Vuong MD (05/17/2021 6:01 PM) [id number] DICTATED and SIGNED BY: GLADYS VUONG MD DATE: 05/17/21 [id number] VTE Prophylaxis Ordered VTE Prophylaxis Devices: No VTE Pharmacological Prophylaxi: Yes Assessment/Plan Assessment/Plan Impression: COVID-19 pneumonia Severe protein-caloric malnutrition , underweight Hypoxia/ IE ACUTE Hypoxic respiratory failure NSTEMI DEMETRI (acute kidney injury) hypokalemia, on replacement rx Left ventricle systolic function is severely impaired. The Ejection Fraction is 20-25%./ ECHO 2017 ACUTE METABOLIC ENCEPHALOPATHY Edema surrounding the terminal ileum suggestive of distal ileitis. No bowel obstruction. Appendix is negative. Rectosigmoid diverticulosis without evidence of diverticulitis. Mild/moderate pleural effusions and dependent lower lobe groundglass densities and interstitial reticulation which may represent pulmonary edema Several low-density lesions are noted within visualized portions of liver. Metastatic disease cannot be excluded. CT 2016 ADMITTED===== consult pulm med consult cardiology o2 support consult nephrology dvt prophylaxis hold nephrotoxic meds Consult GI 34 min cc time Justifications for Admission Other Justification BLAIR GONZALEZ MD May 18, 2021 08:49
[2021-05-18] MEDS ORDERED: POTASSIUM CHLORIDE 20 MEQ TABLET.ER. PO ONE (09:30)
--- NOTE | 2021-05-18 09:45 | PDOC2 ---
CONSULT Date of Consult Date of Consult DATE: 05/18/21 TIME: 09:42 Reason for Consult Reason for Consult: DEMETRI Source Source: Chart review History of Present Illness Reason for Visit: 89-year-old female past medical history of CHF on aspirin and Lasix, COPD, hypertension, hyperlipidemia and hypothyroidism, presents to the ED with concern for bright red bloody bowel movement earlier this morning. Per EMS patient's family is positive for Covid. Family members including patient are unvaccinated .She is confused (AMS) and its not her baseline . She is only oriented to self No reported N/V. No F/C. No urinary complaints. No Chest pain Past Medical History Cardiovascular: HTN Pulmonary: COPD Past Surgical History Past Surgical History: No pertinent history Family History Family History Non contributory Social History ALCOHOL: none Drugs: None Current Problem List Problem List Problems Medical Problems: (1) DEMETRI (acute kidney injury) Status: Acute (2) COVID-19 Status: Acute (3) Hypoxia Status: Acute (4) NSTEMI (non-ST elevated myocardial infarction) Status: Acute (5) Person under investigation for COVID-19 Status: Acute Current Medications Current Medications Current Medications Aspirin (Aspirin Chewable) 81 mg DAILY PO Last administered on 05/18/21at 08:12; Start 05/18/21 at 09:00 Furosemide (Lasix) 40 mg DAILY PO Last administered on 05/18/21at 08:12; Start 05/18/21 at 09:00 Lisinopril (Prinivil) 5 mg DAILY PO Last administered on 05/18/21at 08:11; Start 05/18/21 at 09:00 Metoprolol Tartrate (Lopressor) 12.5 mg BID PO Last administered on 05/18/21at 08:12; Start 05/18/21 at 09:00 Hydralazine HCl (Apresoline Inj) 10 mg PRN Q4HRS PRN IVP ELEVATED BP, SEE COMMENTS Last administered on 05/18/21at 00:00; Start 05/17/21 at 22:15 Potassium Chloride (Klor-Con) 20 meq DAILYWBKFT PO ; Start 05/19/21 at 08:00 Potassium Chloride (Klor-Con) 20 meq 1X ONCE PO Last administered on 05/18/21at 09:27; Start 05/18/21 at 09:30; Stop 05/18/21 at 09:31; Status DC Active Scripts Active Metoprolol Tartrate 25 Mg Tablet 12.5 Mg PO BID Lisinopril 5 Mg Tablet 5 Mg PO DAILY Levofloxacin 750 Mg Tablet 1 Tab PO DAILY Aspirin 81 Mg Tab.chew 1 Tab PO DAILY Allergies Allergies: Coded Allergies: Penicillins (Verified Allergy, Intermediate, 11/15/16) Sulfa (Sulfonamide Antibiotics) (Verified Allergy, Intermediate, 11/15/16) ROS Review of System As per HPI, rest of the ROS is negative ; unable to obtain detailed from patiet 2/2 AMS Physical Exam Physical Exam General NAD HEEN on o2 by NC, OM moist Neck supple Lungs decreased at bases CV S1S2 Abd soft , NT, BS + No clark, No cva or sp tenderness Neuro Confused, AMS Derm Rash Vital Signs Vital Signs Date Time Temp Pulse Resp B/P (MAP) Pulse Ox O2 Delivery O2 Flow Rate FiO2 05/18/21 08:12 77 191/96 05/18/21 08:05 Nasal Cannula 5.0 05/18/21 07:00 98.0 22 96 98.0 Assessment & Plan DEMETRI - Vasomotor / supportive care check UA , maintain Hydration (IVF if NPO /poor PO intake - cautious with hx of CHF and elevated BNP) Avoid nephrotoxins, Strict I/O . Monitor CT scan No hydronephrosis Renal Cyst - Right renal lower pole 2 cm cyst density 10 units. Ac Hypoxic Resp failure Mild/moderate pleural effusions and dependent lower lobe groundglass densities and interstitial reticulation which may represent pulmonary edema. Atypical infection or pneumonitis would be additional considerations.Currently on O2 5lts by NC CoVid 19 Pneumonia HypoAlbuminemia- Alb 1.8 HTN- On Furosmide and Lisinopril Labs Labs Laboratory Tests Test 05/17/21 16:25 05/17/21 17:45 05/17/21 18:30 05/17/21 18:35 White Blood Count 7.5 x10^3/uL (4.0-11.0) Red Blood Count 5.21 x10^6/uL (3.50-5.40) Hemoglobin 16.6 g/dL (12.0-15.5) Hematocrit 50.6 % (36.0-47.0) Mean Corpuscular Volume 97 fL (79-100) Mean Corpuscular Hemoglobin 32 pg (25-35) Mean Corpuscular Hemoglobin Concent 33 g/dL (31-37) Red Cell Distribution Width 16.6 % (11.5-14.5) Platelet Count 167 x10^3/uL (140-400) Neutrophils (%) (Auto) 88 % (31-73) Lymphocytes (%) (Auto) 7 % (24-48) Monocytes (%) (Auto) 5 % (0-9) Eosinophils (%) (Auto) 0 % (0-3) Basophils (%) (Auto) 0 % (0-3) Neutrophils # (Auto) 6.6 x10^3/uL (1.8-7.7) Lymphocytes # (Auto) 0.5 x10^3/uL (1.0-4.8) Monocytes # (Auto) 0.4 x10^3/uL (0.0-1.1) Eosinophils # (Auto) 0.0 x10^3/uL (0.0-0.7) Basophils # (Auto) 0.0 x10^3/uL (0.0-0.2) Segmented Neutrophils % 93 % (35-66) Band Neutrophils % 2 % (0-9) Lymphocytes % 3 % (24-48) Monocytes % 2 % (0-10) Nucleated Red Blood Cells 1 Platelet Estimate Adequate (ADEQUATE) Polychromasia Slight Anisocytosis Slight Sodium Level 141 mmol/L (136-145) Potassium Level 3.3 mmol/L (3.5-5.1) Chloride Level 100 mmol/L (98-107) Carbon Dioxide Level 27 mmol/L (21-32) Anion Gap 14 (6-14) Blood Urea Nitrogen 25 mg/dL (7-20) Creatinine 1.2 mg/dL (0.6-1.0) Estimated GFR (Cockcroft-Gault) 42.4 BUN/Creatinine Ratio 21 (6-20) Glucose Level 78 mg/dL (70-99) Calcium Level 8.1 mg/dL (8.5-10.1) Total Bilirubin 1.6 mg/dL (0.2-1.0) Aspartate Amino Transf (AST/SGOT) 48 U/L (15-37) Alanine Aminotransferase (ALT/SGPT) 15 U/L (14-59) Alkaline Phosphatase 64 U/L (46-116) Troponin I Quantitative 0.163 ng/mL (0.000-0.055) Total Protein 6.1 g/dL (6.4-8.2) Albumin 1.8 g/dL (3.4-5.0) Albumin/Globulin Ratio 0.4 (1.0-1.7) Lipase 327 U/L (73-393) SARS-CoV-2 Antigen (Rapid) Positive (NEGATIVE) PU-[id number]-[id number]-Type Natriuretic Peptide > 37472 pg/mL (0-449) Prothrombin Time 12.9 SEC (11.7-14.0) Prothromb Time International Ratio 1.0 (0.8-1.1) Activated Partial Thromboplast Time 28 SEC (24-38) Lactic Acid Level 1.2 mmol/L (0.4-2.0) Laboratory Tests Test 05/17/21 16:25 05/17/21 17:45 05/17/21 18:30 05/17/21 18:35 White Blood Count 7.5 x10^3/uL (4.0-11.0) Red Blood Count 5.21 x10^6/uL (3.50-5.40) Hemoglobin 16.6 g/dL (12.0-15.5) Hematocrit 50.6 % (36.0-47.0) Mean Corpuscular Volume 97 fL (79-100) Mean Corpuscular Hemoglobin 32 pg (25-35) Mean Corpuscular Hemoglobin Concent 33 g/dL (31-37) Red Cell Distribution Width 16.6 % (11.5-14.5) Platelet Count 167 x10^3/uL (140-400) Neutrophils (%) (Auto) 88 % (31-73) Lymphocytes (%) (Auto) 7 % (24-48) Monocytes (%) (Auto) 5 % (0-9) Eosinophils (%) (Auto) 0 % (0-3) Basophils (%) (Auto) 0 % (0-3) Neutrophils # (Auto) 6.6 x10^3/uL (1.8-7.7) Lymphocytes # (Auto) 0.5 x10^3/uL (1.0-4.8) Monocytes # (Auto) 0.4 x10^3/uL (0.0-1.1) Eosinophils # (Auto) 0.0 x10^3/uL (0.0-0.7) Basophils # (Auto) 0.0 x10^3/uL (0.0-0.2) Segmented Neutrophils % 93 % (35-66) Band Neutrophils % 2 % (0-9) Lymphocytes % 3 % (24-48) Monocytes % 2 % (0-10) Nucleated Red Blood Cells 1 Platelet Estimate Adequate (ADEQUATE) Polychromasia Slight Anisocytosis Slight Sodium Level 141 mmol/L (136-145) Potassium Level 3.3 mmol/L (3.5-5.1) Chloride Level 100 mmol/L (98-107) Carbon Dioxide Level 27 mmol/L (21-32) Anion Gap 14 (6-14) Blood Urea Nitrogen 25 mg/dL (7-20) Creatinine 1.2 mg/dL (0.6-1.0) Estimated GFR (Cockcroft-Gault) 42.4 BUN/Creatinine Ratio 21 (6-20) Glucose Level 78 mg/dL (70-99) Calcium Level 8.1 mg/dL (8.5-10.1) Total Bilirubin 1.6 mg/dL (0.2-1.0) Aspartate Amino Transf (AST/SGOT) 48 U/L (15-37) Alanine Aminotransferase (ALT/SGPT) 15 U/L (14-59) Alkaline Phosphatase 64 U/L (46-116) Troponin I Quantitative 0.163 ng/mL (0.000-0.055) Total Protein 6.1 g/dL (6.4-8.2) Albumin 1.8 g/dL (3.4-5.0) Albumin/Globulin Ratio 0.4 (1.0-1.7) Lipase 327 U/L (73-393) SARS-CoV-2 Antigen (Rapid) Positive (NEGATIVE) KA-Dms-T-Type Natriuretic Peptide > 78868 pg/mL (0-449) Prothrombin Time 12.9 SEC (11.7-14.0) Prothromb Time International Ratio 1.0 (0.8-1.1) Activated Partial Thromboplast Time 28 SEC (24-38) Lactic Acid Level 1.2 mmol/L (0.4-2.0) Review All relevant outside records, renal labs, imaging studies, telemetry/EKG's were reviewed. Images Images CT abdomen and pelvis without contrast PQRS statement: CT scans at this facility use dose reduction including either automated exposure control, iterative reconstructions, and /or weight based radiation dosing via mA and kV modification when appropriate to reduce radiation dose to as low as reasonably achievable. HISTORY: Hematochezia. Blood in stool. Abdomen findings: Cardiomegaly. Coronary calcified plaque. Mild to moderate bilateral pleural effusions mild passive atelectasis at the lung bases as well as mild groundglass densities and interstitial reticulation. Lumbar scoliosis and disc disease with spinal canal and neural foraminal stenoses. Right renal lower pole 2 cm cyst density 10 units. Left kidney, adrenals, pancreas, spleen unremarkable. Gallbladder poorly visualized may be surgically absent or collapsed. There are hypodense liver cysts with densities of less than 15 units of which have peripheral calcification. There is a bowel tubular structure right posterolateral the cecum there appears be some surrounding edema, this is likely a small bowel loop. No bowel obstruction. The appendix appears to be separate anterior of this bowel loop right lateral of the cecum and has a normal diameter of 4 mm. Aortoiliac artery and abdominal artery calcified plaque. No abdominal free fluid. Pelvis findings: Extensive rectosigmoid diverticulosis without evidence of diverticulitis. Bladder wall is thickened. Uterus unremarkable. Ovaries not visualized likely atrophic and obscured by surrounding pelvic bowel loops. No pelvic fluid. IMPRESSION: 1. Edema surrounding the terminal ileum suggestive of distal ileitis. No bowel obstruction. 2. Appendix is negative. 3. Rectosigmoid diverticulosis without evidence of diverticulitis. 4. Mild/moderate pleural effusions and dependent lower lobe groundglass densities and interstitial reticulation which may represent pulmonary edema. Atypical infection or pneumonitis would be additional considerations. KEE STRONG MD May 18, 2021 09:45
[2021-05-18 11:00] VITALS: BP 181/89
--- NOTE | 2021-05-18 11:57 | CONS ---
DATE OF CONSULTATION: 05/18/2021 ATTENDING PHYSICIAN: Dr. Park. REASON FOR CONSULTATION: COVID-19 pneumonia. HISTORY OF PRESENT ILLNESS: The patient is an 89-year-old female who was brought into the hospital with hypoxia and mild shortness of breath. She was tested positive for COVID. She also had some bloody bowel movement. Unable to obtain much history from the patient. She is currently requiring 5 liters of oxygen via nasal cannula. Chest x-ray reveals mild faint perihilar infiltrates. Consultation requested for further evaluation and management. No reported nausea, vomiting or diarrhea. PAST MEDICAL HISTORY: Significant for hypertension and history of bleeding ulcers. PAST SURGICAL HISTORY: None. SOCIAL HISTORY: Never smoker. ALLERGIES: PENICILLIN AND SULFA. MEDICATIONS: Reviewed as listed in the MRAD. REVIEW OF SYSTEMS: Unable to obtain from the patient due to her dementia. PHYSICAL EXAMINATION: VITAL SIGNS: Her vital signs were reviewed. She is afebrile. Pulse ox 96% on 5 liters. NECK: Supple. LUNGS: With diminished breath sounds posteriorly. CARDIOVASCULAR: With a regular rate. ABDOMEN: Soft. EXTREMITIES: With no pitting edema. COVID rapid is positive. LABORATORY DATA: Labs were reviewed. BUN 25, creatinine 1.2. Troponin 0.16. INR 1.0. White cell count 7.5, hemoglobin 16.6 and platelets 167. IMPRESSION: 1. Acute hypoxic respiratory failure secondary to COVID-19 pneumonia. 2. Abnormal chest x-ray with bilateral perihilar infiltrates, most suggestive of COVID-19 viral pneumonia. 3. Increased hemoglobin and hematocrit, likely secondary to dehydration. 4. Abnormal troponin level. RECOMMENDATIONS: 1. Continue present oxygen, keep saturations 92% and above. 2. We will initiate dexamethasone. 3. Would avoid further diuresis. 4. Follow hemoglobin and hematocrit. Discussed with RN. We will follow along with you. ELAN DR: Eliana TID: [id number]
[2021-05-18] MEDS: DEXAMETHASONE SOD PHOS 4 MG/ML VIAL IVP SCH (12:08)
--- NOTE | 2021-05-18 13:13 | NUR ---
SS following for discharge planning. SS reviewed pt chart and discussed with pt RN. Pt is from home with family and is currently requiring oxygen at five liters nasal canula. COVID19 positive. Cardiology, Pulmonology, and Nephrology consulted. Pt on IV Decadron. SS will continue to follow for discharge planning.
[2021-05-18 15:00] VITALS: BP 145/74
--- NOTE | 2021-05-18 15:09 | PDOC2 ---
GI CONSULT Date of Service: DATE: 05/18/21 TIME: 14:45 Reason For Consult: hepatic lesions on CT 2016 HPI: HPI: 89 y/o female admitted through ER, tested positive for COVID. Chart mentions hematochezia. She denies. I asked her what concerns brought her to the hospital and she said "hell, I don't know." Reason for consult is hepatic lesions on past CT - I do not have these records. The CT results I can see in her chart are from yesterday and note "hypodense liver cysts with densities of less than 15 units of which have peripheral calcification." Not a good historian. She denies n/v, abdominal pain, diarrhea, constipation, hematochezia, and melena. Says she's eating normally. Denies dysphagia. Denies previous colonoscopy. CT report mentions rectosigmoid diverticulosis, edema surrounding terminal ileum, and poorly visualized GB (surgically absent of collapsed). Nurse reports minimal hemorrhoidal-type bleeding since admission. No other GI concerns. ASA on summary list. PMH: PMH: per chart: HTN, COPD, CHF (echo in 2017 showed EF 20-25%) thoracentesis FH: Family History: No pertinent hx Social History: Smoke: No ALCOHOL: none ROS: Difficult to obtain, see HPI. Vitals: Vitals: Vital Signs Date Time Temp Pulse Resp B/P (MAP) Pulse Ox O2 Delivery O2 Flow Rate FiO2 05/18/21 11:00 96.8 64 22 181/89 (119) 94 Nasal Cannula 5.0 96.8 Labs: Labs: Laboratory Tests Test 05/17/21 16:25 05/17/21 17:45 05/17/21 18:30 05/17/21 18:35 White Blood Count 7.5 x10^3/uL (4.0-11.0) Red Blood Count 5.21 x10^6/uL (3.50-5.40) Hemoglobin 16.6 g/dL (12.0-15.5) Hematocrit 50.6 % (36.0-47.0) Mean Corpuscular Volume 97 fL (79-100) Mean Corpuscular Hemoglobin 32 pg (25-35) Mean Corpuscular Hemoglobin Concent 33 g/dL (31-37) Red Cell Distribution Width 16.6 % (11.5-14.5) Platelet Count 167 x10^3/uL (140-400) Neutrophils (%) (Auto) 88 % (31-73) Lymphocytes (%) (Auto) 7 % (24-48) Monocytes (%) (Auto) 5 % (0-9) Eosinophils (%) (Auto) 0 % (0-3) Basophils (%) (Auto) 0 % (0-3) Neutrophils # (Auto) 6.6 x10^3/uL (1.8-7.7) Lymphocytes # (Auto) 0.5 x10^3/uL (1.0-4.8) Monocytes # (Auto) 0.4 x10^3/uL (0.0-1.1) Eosinophils # (Auto) 0.0 x10^3/uL (0.0-0.7) Basophils # (Auto) 0.0 x10^3/uL (0.0-0.2) Segmented Neutrophils % 93 % (35-66) Band Neutrophils % 2 % (0-9) Lymphocytes % 3 % (24-48) Monocytes % 2 % (0-10) Nucleated Red Blood Cells 1 Platelet Estimate Adequate (ADEQUATE) Polychromasia Slight Anisocytosis Slight Sodium Level 141 mmol/L (136-145) Potassium Level 3.3 mmol/L (3.5-5.1) Chloride Level 100 mmol/L (98-107) Carbon Dioxide Level 27 mmol/L (21-32) Anion Gap 14 (6-14) Blood Urea Nitrogen 25 mg/dL (7-20) Creatinine 1.2 mg/dL (0.6-1.0) Estimated GFR (Cockcroft-Gault) 42.4 BUN/Creatinine Ratio 21 (6-20) Glucose Level 78 mg/dL (70-99) Calcium Level 8.1 mg/dL (8.5-10.1) Total Bilirubin 1.6 mg/dL (0.2-1.0) Aspartate Amino Transf (AST/SGOT) 48 U/L (15-37) Alanine Aminotransferase (ALT/SGPT) 15 U/L (14-59) Alkaline Phosphatase 64 U/L (46-116) Troponin I Quantitative 0.163 ng/mL (0.000-0.055) Total Protein 6.1 g/dL (6.4-8.2) Albumin 1.8 g/dL (3.4-5.0) Albumin/Globulin Ratio 0.4 (1.0-1.7) Lipase 327 U/L (73-393) SARS-CoV-2 Antigen (Rapid) Positive (NEGATIVE) [id number]-Type Natriuretic Peptide > 14577 pg/mL (0-449) Prothrombin Time 12.9 SEC (11.7-14.0) Prothromb Time International Ratio 1.0 (0.8-1.1) Activated Partial Thromboplast Time 28 SEC (24-38) Lactic Acid Level 1.2 mmol/L (0.4-2.0) Allergies: Coded Allergies: Penicillins (Verified Allergy, Intermediate, 11/15/16) Sulfa (Sulfonamide Antibiotics) (Verified Allergy, Intermediate, 11/15/16) Medications: Current Medications Medications (Trade) Dose Ordered Sig/Brice Route PRN Reason Start Time Stop Time Status Last Admin Dose Admin Aspirin (Aspirin Chewable) 81 mg DAILY PO 05/18/21 09:00 05/18/21 08:12 Furosemide (Lasix) 40 mg DAILY PO 05/18/21 09:00 05/18/21 08:12 Lisinopril (Prinivil) 5 mg DAILY PO 05/18/21 09:00 05/18/21 08:11 Metoprolol Tartrate (Lopressor) 12.5 mg BID PO 05/18/21 09:00 05/18/21 08:12 Hydralazine HCl (Apresoline Inj) 10 mg PRN Q4HRS PRN IVP ELEVATED BP, SEE COMMENTS 05/17/21 22:15 05/18/21 00:00 Potassium Chloride (Klor-Con) 20 meq 1X ONCE PO 05/18/21 09:30 05/18/21 09:31 DC 05/18/21 09:27 Dexamethasone Sodium Phosphate (Decadron) 6 mg DAILY IVP 05/18/21 12:00 05/18/21 12:08 Imaging: Imaging: CT A/P 05/17 Abdomen findings: Cardiomegaly. Coronary calcified plaque. Mild to moderate bilateral pleural effusions mild passive atelectasis at the lung bases as well as mild groundglass densities and interstitial reticulation. Lumbar scoliosis and disc disease with spinal canal and neural foraminal stenoses. Right renal lower pole 2 cm cyst density 10 units. Left kidney, adrenals, pancreas, spleen unremarkable. Gallbladder poorly visualized may be surgically absent or collapsed. There are hypodense liver cysts with densities of less than 15 units of which have peripheral calcification. There is a bowel tubular structure right posterolateral the cecum there appears be some surrounding edema, this is likely a small bowel loop. No bowel obstruction. The appendix appears to be separate anterior of this bowel loop right lateral of the cecum and has a normal diameter of 4 mm. Aortoiliac artery and abdominal artery calcified plaque. No abdominal free fluid. Pelvis findings: Extensive rectosigmoid diverticulosis without evidence of diverticulitis. Bladder wall is thickened. Uterus unremarkable. Ovaries not visualized likely atrophic and obscured by surrounding pelvic bowel loops. No pelvic fluid. IMPRESSION: 1. Edema surrounding the terminal ileum suggestive of distal ileitis. No bowel obstruction. 2. Appendix is negative. 3. Rectosigmoid diverticulosis without evidence of diverticulitis. 4. Mild/moderate pleural effusions and dependent lower lobe groundglass densities and interstitial reticulation which may represent pulmonary edema. Atypical infection or pneumonitis would be additional considerations. CXR 05/17 IMPRESSION: Moderate prominent appearing bilateral interstitial lung markings likely congestive changes or interstitial infiltrates. PE: GEN: in COVID isolation slumped over in bed, lunch ~50% consumed, appears frail, thin HEENT: Atraumatic, PERRL LUNGS: 5L NC, diminished anteriorly HEART: RRR ABD: quiet, S/ND/NT SKIN: No rashes, no jaundice NEURO/PSYCH: seems [place] and forgetful, does awaken to answer questions A/P: A/P: COVID pneumonia, CHF Hematochezia - staff reports scant red blood possibly related to hemorrhoids - Hgb 16, HR 64, hypertensive Mildly elevated troponin, mildly elevated bili and AST Abnormal CT - liver cysts, edema surrounding TI CRC screen - none Diverticulosis -- Supportive care for COVID per others. Monitor bleeding, follow labs. Will give empiric acid-channel marketing specialist. Could consider liver US but seems conservative management might make the most sense considering age and co-morbidities. Unclear significance of TI findings on CT report. DANIELITO SANCHEZ May 18, 2021 15:09
--- NOTE | 2021-05-18 15:17 | PDOC2 ---
JUDE JOHNSON BANKING AND FINANCE INSTRUCTOR 05/18/21 1517: CARDIAC CONSULT DATE OF CONSULT Date of Consult DATE: 05/18/21 TIME: 15:07 REASON FOR CONSULT Reason for Consult: NSTEMI REFERRING PHYSICIAN Referring Physician: Dr. Prak SOURCE Source: Chart review, Patient HISTORY OF PRESENT ILLNESS HISTORY OF PRESENT ILLNESS This is an 89 yo female who presented to red, bloody bowel movement and confusion. Is a poor historian. Does not know why she is here. States her niece just brought her. Trop level was obtained and noted to be mildly elevated, which prompted this consult. Patient test + for COVID. She denies any shortness of breath, dizziness, chest pain, or nausea/vomiting. Family reports she is alert and oriented at baseline. Was noted to be confused this morning. Family members in home also + for COVID. PAST MEDICAL HISTORY Cardiovascular: CHF, HTN, Hyperlipidemia Pulmonary: COPD GI: Peptic Ulcer disease PAST SURGICAL HISTORY Past Surgical History: No pertinent history FAMILY HISTORY Family History: Hypertension SOCIAL HISTORY Smoke: No ALCOHOL: none Drugs: None Lives: with Family CURRENT MEDICATIONS CURRENT MEDICATIONS Current Medications Medications (Trade) Dose Ordered Sig/Brice Route PRN Reason Start Time Stop Time Status Last Admin Dose Admin Aspirin (Aspirin Chewable) 81 mg DAILY PO 05/18/21 09:00 05/18/21 08:12 Furosemide (Lasix) 40 mg DAILY PO 05/18/21 09:00 05/18/21 08:12 Lisinopril (Prinivil) 5 mg DAILY PO 05/18/21 09:00 05/18/21 08:11 Metoprolol Tartrate (Lopressor) 12.5 mg BID PO 05/18/21 09:00 05/18/21 08:12 Hydralazine HCl (Apresoline Inj) 10 mg PRN Q4HRS PRN IVP ELEVATED BP, SEE COMMENTS 05/17/21 22:15 05/18/21 00:00 Potassium Chloride (Klor-Con) 20 meq 1X ONCE PO 05/18/21 09:30 05/18/21 09:31 DC 05/18/21 09:27 Dexamethasone Sodium Phosphate (Decadron) 6 mg DAILY IVP 05/18/21 12:00 05/18/21 12:08 ALLERGIES ALLERGIES: Coded Allergies: Penicillins (Verified Allergy, Intermediate, 11/15/16) Sulfa (Sulfonamide Antibiotics) (Verified Allergy, Intermediate, 11/15/16) ROS Review of System 14 point ROS conducted with pertinent positives noted above in hPI, although limited due to confusion PHYSICAL EXAM General: Alert, Cooperative, No acute distress, Other (alert to person ) HEENT: Atraumatic Lungs: Other (on NC) Heart: Regular rate (SR with LBBB) Abdomen: Soft Extremities: No edema Skin: No significant lesion Neuro: Normal speech, Sensation intact Psych/Mental Status: Mood NL, Other (forgetful) MUSCULOSKELETAL: Osteoarthritic changes both hands VITALS/I&O VITALS/I&O: Vital Signs Date Time Temp Pulse Resp B/P (MAP) Pulse Ox O2 Delivery O2 Flow Rate FiO2 05/18/21 11:00 96.8 64 22 181/89 (119) 94 Nasal Cannula 5.0 96.8 I & O 05/17/21 05/17/21 05/18/21 15:00 23:00 07:00 Intake Total 520 ml Output Total 100 ml Balance 420 ml LABS Lab: Laboratory Tests Test 05/17/21 16:25 05/17/21 17:45 05/17/21 18:30 05/17/21 18:35 White Blood Count 7.5 x10^3/uL (4.0-11.0) Red Blood Count 5.21 x10^6/uL (3.50-5.40) Hemoglobin 16.6 g/dL (12.0-15.5) H Hematocrit 50.6 % (36.0-47.0) H Mean Corpuscular Volume 97 fL (79-100) Mean Corpuscular Hemoglobin 32 pg (25-35) Mean Corpuscular Hemoglobin Concent 33 g/dL (31-37) Red Cell Distribution Width 16.6 % (11.5-14.5) H Platelet Count 167 x10^3/uL (140-400) Neutrophils (%) (Auto) 88 % (31-73) H Lymphocytes (%) (Auto) 7 % (24-48) L Monocytes (%) (Auto) 5 % (0-9) Eosinophils (%) (Auto) 0 % (0-3) Basophils (%) (Auto) 0 % (0-3) Neutrophils # (Auto) 6.6 x10^3/uL (1.8-7.7) Lymphocytes # (Auto) 0.5 x10^3/uL (1.0-4.8) L Monocytes # (Auto) 0.4 x10^3/uL (0.0-1.1) Eosinophils # (Auto) 0.0 x10^3/uL (0.0-0.7) Basophils # (Auto) 0.0 x10^3/uL (0.0-0.2) Segmented Neutrophils % 93 % (35-66) H Band Neutrophils % 2 % (0-9) Lymphocytes % 3 % (24-48) L Monocytes % 2 % (0-10) Nucleated Red Blood Cells 1 Platelet Estimate Adequate (ADEQUATE) Polychromasia Slight Anisocytosis Slight Sodium Level 141 mmol/L (136-145) Potassium Level 3.3 mmol/L (3.5-5.1) L Chloride Level 100 mmol/L (98-107) Carbon Dioxide Level 27 mmol/L (21-32) Anion Gap 14 (6-14) Blood Urea Nitrogen 25 mg/dL (7-20) H Creatinine 1.2 mg/dL (0.6-1.0) H Estimated GFR (Cockcroft-Gault) 42.4 BUN/Creatinine Ratio 21 (6-20) H Glucose Level 78 mg/dL (70-99) Calcium Level 8.1 mg/dL (8.5-10.1) L Total Bilirubin 1.6 mg/dL (0.2-1.0) H Aspartate Amino Transferase (AST) 48 U/L (15-37) H Alanine Aminotransferase (ALT) 15 U/L (14-59) Alkaline Phosphatase 64 U/L (46-116) Troponin I Quantitative 0.163 ng/mL (0.000-0.055) Total Protein 6.1 g/dL (6.4-8.2) L Albumin 1.8 g/dL (3.4-5.0) L Albumin/Globulin Ratio 0.4 (1.0-1.7) L Lipase 327 U/L (73-393) SARS-CoV-2 Antigen (Rapid) Positive (NEGATIVE) *A QR-Pef-P-Type Natriuretic Peptide > 19838 pg/mL (0-449) H Prothrombin Time 12.9 SEC (11.7-14.0) Prothrombin Time INR 1.0 (0.8-1.1) Activated Partial Thromboplast Time 28 SEC (24-38) Lactic Acid Level 1.2 mmol/L (0.4-2.0) Laboratory Tests 05/17/21 16:25 Laboratory Tests 05/17/21 16:25 ECHOCARDIOGRAM ECHOCARDIOGRAM <Conclusion> There is severe global hypokinesis of the left ventricle with anterior wall/septal and apical predominance. Doppler and Color Flow revealed mild aortic regurgitation. There are large bilateral pleural effusions. There is a trace loculated posterior pericardial effusion. Left ventricle systolic function is severely impaired. The Ejection Fraction is 20-25%. DATE: 11/15/16 1636 ASSESSMENT/PLAN ASSESSMENT/PLAN 1. Acute respiratory failure secondary to COVID PNA 2. Mild troponin elevation; most probably type II, demand ischemia in setting of above. 3. Acute on chronic systolic CHF, cardiomyopathy; Echo 2017 with LVEF 20-25%. appears compensated 4. Hypertensive urgency; labile 5 . Hyperlipidemia 6. Hematochezia; hemorrhoidal bleeding. H and H stable 7. Hypokalemia Recommendations Trop troponin Statin ASA unless further bleeding noted. Home antiHTN therapy resumed. Titrate as warranted. Hydralazine IV PRN Replace K. Check Mg and replace as warranted Convert metoprolol to long-acting for HF optimization Ongoing lung optimization, treatment of COVID Supportive care KARTIK FIERRO MD 05/19/21 1258: CARDIAC CONSULT ASSESSMENT/PLAN ASSESSMENT/PLAN Patient evaluated 05/18/2021. Agree with FORESTRY SUPERVISOR's assessment and plan. Acute respiratory failure secondary to Covid pneumonia. Slight troponin elevation probably demand ischemia. Chronic systolic heart failure clinically well compensated. Resume home antihypertensives and titrate for better blood pressure control. Thank you for your consultation JUDE JOHNSON APRN May 18, 2021 15:17 KARTIK FIERRO MD May 19, 2021 12:58
--- NOTE | 2021-05-18 17:05 | NUR ---
NURSING PT IS ALERT TO SELF, CONFUSED TO ALL OTHER. SHE IS MIXED CONTINENCE. SEVERAL ATTEMPTS MADE TO CATCH URINE FOR TESTING, IF UNABLE, MAY NEED TO STRAIGHT CATH TO OBTAIN. FAMILY HAS CALLED X 2 TO CHECK ON HER. SHE DOES NOT RECOGNIZE THEIR NAMES, THOUGH THEY MAINTAIN THIS CONFUSION IS NEW FOR HER THAT SHE IS USUALLY A&O X3 AT HOME.
[2021-05-18] MEDS: PANTOPRAZOLE 40 MG TABLET.DR. PO SCH (17:10)
[2021-05-18 19:59] VITALS: BP 159/82
[2021-05-18] MEDS: ATORVASTATIN CALCIUM 20 MG TABLET PO SCH (20:23)
[2021-05-18 23:28] VITALS: BP 138/72
[2021-05-19 03:05] VITALS: BP 138/69
[2021-05-19 07:00] VITALS: BP 154/78
[2021-05-19 07:27] LABS: CALCIUM 6.7 mg/dL (8.5-10.1); CREATININE 1.1 mg/dL (0.6-1.0); GFR 46.9; PHOSPHORUS 3.1 mg/dL (2.6-4.7); POTASSIUM 3.1 mmol/L (3.5-5.1)
[2021-05-19 07:33] LABS: CHOLESTEROL/HDL RATIO 3.9
[2021-05-19] MEDS: ASPIRIN ENTERIC COATED 81 MG TABLET.DR. PO SCH (08:00)
[2021-05-19] MEDS: FUROSEMIDE 40 MG TABLET. PO SCH (08:41)
[2021-05-19] MEDS: POTASSIUM CHLORIDE 20 MEQ TABLET.ER. PO SCH (08:41)
[2021-05-19] MEDS: METOPROLOL SUCC 24HR ER 25 MG TAB.ER.24H. PO SCH (08:41)
[2021-05-19] MEDS: LISINOPRIL 5 MG TABLET. PO SCH (08:42)
[2021-05-19] MEDS: PANTOPRAZOLE 40 MG TABLET.DR. PO SCH (08:42)
[2021-05-19] MEDS: ASPIRIN CHEWABLE 81 MG TABLET. PO SCH (08:42)
[2021-05-19] MEDS: DEXAMETHASONE SOD PHOS 4 MG/ML VIAL IVP SCH (08:43)
--- NOTE | 2021-05-19 08:43 | PDOC ---
PROGRESS NOTES Date of Service: DATE: 05/19/21 TIME: 08:42 Chief Complaint Chief Complaint VTE Prophylaxis Ordered VTE Prophylaxis Devices: No VTE Pharmacological Prophylaxi: Yes Assessment/Plan Assessment/Plan Impression: COVID-19 pneumonia Severe protein-caloric malnutrition , underweight Hypoxia/ IE ACUTE Hypoxic respiratory failure NSTEMI DEMETRI (acute kidney injury) hypokalemia, on replacement rx Left ventricle systolic function is severely impaired. The Ejection Fraction is 20-25%./ ECHO 2017 ACUTE METABOLIC ENCEPHALOPATHY Edema surrounding the terminal ileum suggestive of distal ileitis. No bowel obstruction. Appendix is negative. Rectosigmoid diverticulosis without evidence of diverticulitis. Mild/moderate pleural effusions and dependent lower lobe groundglass densities and interstitial reticulation which may represent pulmonary edema Several low-density lesions are noted within visualized portions of liver. Metastatic disease cannot be excluded. 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 Per EMS patient's family is positive for Covid Rectosigmoid diverticulosis ON RECENT CT / confused (AMS) and its not her baseline / only oriented to self RECENT ECHO IN 2017 / Left ventricle systolic function is severely impaired. The Ejection Fraction is 20-25%./ ECHO 2017 COVID POS IN ER WITH ACUTE METABOLIC ENCEPHALOPATHY / Hematochezia. Blood in stool. STARTED ON IV DEXAMETHASONE 6 MG IV TROPONIN I 0.631 IN er Several low-density lesions are noted within visualized portions of liver. / Metastatic disease cannot be excluded. [address] abd Edema surrounding the terminal ileum suggestive of distal ileitis. No bowel obstruction. Appendix is negative. / Rectosigmoid diverticulosis without evidence of diverticulitis. Mild/moderate pleural effusions and dependent lower lobe groundglass densities and interstitial reticulation which may represent pulmonary edema PLAN == ADMIT // consult pulm med / consult cardiology / o2 support / consult nephrology /dvt prophylaxis / hold nephrotoxic meds Past Medical History Past Medical History Past Medical History Past Medical History Past Medical History: Hypertension Additional Past Medical Histor: BLEEDING ULCERS Past Surgical History: No Surgical History Smoking Status: Never Smoker Alcohol Use: None Drug Use: None Cardiovascular: HTN, Hyperlipidemia Pulmonary: COPD CENTRAL NERVOUS SYSTEM: Dementia Musculoskeletal: Osteoarthritis, Weakness Past Surgical History Past Surgical History: No pertinent history Family History Family History: High Cholestrol, Hypertension Social History Smoke: No ALCOHOL: none Drugs: None Current Problem List Problem List Problems Medical Problems: (1) DEMETRI (acute kidney injury) Status: Acute (2) COVID-19 Status: Acute (3) Hypoxia Status: Acute (4) NSTEMI (non-ST elevated myocardial infarction) Status: Acute (5) Person under investigation for COVID-19 Status: Acute Current Medications Current Medications Current Medications Aspirin (Aspirin Chewable) 81 mg DAILY PO Last administered on 05/18/21at 08:12; Start 05/18/21 at 09:00 Furosemide (Lasix) 40 mg DAILY PO Last administered on 05/18/21at 08:12; Start 05/18/21 at 09:00 Lisinopril (Prinivil) 5 mg DAILY PO Last administered on 05/18/21at 08:11; Start 05/18/21 at 09:00 Metoprolol Tartrate (Lopressor) 12.5 mg BID PO Last administered on 05/18/21at 08:12; Start 05/18/21 at 09:00 Hydralazine HCl (Apresoline Inj) 10 mg PRN Q4HRS PRN IVP ELEVATED BP, SEE COMMENTS Last administered on 05/18/21at 00:00; Start 05/17/21 at 22:15 Active Scripts Active Metoprolol Tartrate 25 Mg Tablet 12.5 Mg PO BID Lisinopril 5 Mg Tablet 5 Mg PO DAILY Lasix (Furosemide) 40 Mg Tablet 1 Tab PO DAILY Levofloxacin 750 Mg Tablet 1 Tab PO DAILY Aspirin 81 Mg Tab.chew 1 Tab PO DAILY Allergies Allergies: Coded Allergies: Penicillins (Verified Allergy, Intermediate, 11/15/16) Sulfa (Sulfonamide Antibiotics) (Verified Allergy, Intermediate, 11/15/16) ROS Review of System 14 pt ros otherwise neg General: YES: Fatigue; No: Chills, Night Sweats, Malaise, Appetite, Other PSYCHOLOGICAL ROS: YES: Concentration difficultie, Disorientation, Memory difficulties; No: Anxiety, Behavioral Disorder, Decreased libido, Depression, Hallucinations, Hostility, Irritablity, Mood Swings, Obsessive thoughts, Physical abuse, Sexual abuse, Sleep disturbances, Suicidal ideation, Other Eyes: No Blurry vision, No Decreased vision, No Double vision, No Dry eyes, No Excessive tearing, No Eye Pain, No Itchy Eyes, No Loss of vision, No Photophobia, No Scotomata, No Uses contacts, No Uses glasses, No Other HEENT: No: Heacaches, Visual Changes, Hearing change, Nasal congestion, Nasal discharge, Oral lesions, Sinus pain, Sore Throat, Epistaxis, Sneezing, Snoring, Tinnitus, Vertigo, Vocal changes, Other ALLERGY AND IMMUNOLOGY: YES: Hives; No: Insect Bite Sensitivity, Itchy/Watery Eyes, Nasal Congestion, Post Nasal Drip, Seasonal Allergies, Other Hematological and Lymphatic: YES: Bleeding Problems; No: Blood Clots, Blood Transfusions, Brusing, Night Sweats, Pallor, Swollen Lymph Nodes, Other ENDOCRINE: No: Breast Changes, Galactorrhea, Hair Pattern Changes, Hot Flashes, Malaise/lethargy, Mood Swings, Palpitations, Polydipsia/polyuria, Skin Changes, Temperature Intolerance, Unexpected Weight Changes, Other Breast: No New/Changing Breast Lumps, No Nipple changes, No Nipple discharge, No Other Respiratory: YES: Shortness of breath, SOB with excertion Cardiovascular: No Chest Pain, No Palpitations, No Orthopnea, No Paroxysmal Noc. Dyspnea, No Edema, No Lt Headedness, No Other Gastrointestinal: No Nausea, No Vomiting, No Abdominal Pain, No Diarrhea, No C onstipation, No Melena, No Hematochezia, No Other Genitourinary: No Dysuria, No Frequency, No Incontinence, No Hematuria, No Retention, No Discharge, No Urgency, No Pain, No Flank Pain, No Other, No , No , No , No , No , No , No Musculoskeletal: Yes Joint Stiffness; No Gait Disturbance, No Joint Pain, No Joint Swelling, No Muscle Pain, No Muscular Weakness, No Pain In:, No Swelling In:, No Other Neurological: Yes Confusion; No Behavorial Changes, No Bowel/Bladder ControlChng, No Dizziness, No Gait Disturbance, No Headaches, No Impaired Coord/balance, No Memory Loss, No Numbness/Tingling, No Seizures, No Speech Problems, No Tremors, No Visual Pickard es, No Weakness, No Other Skin: Yes Dry Skin; No Eczema, No Hair Changes, No Lumps, No Mole Changes, No Mottling, No Nail Changes, No Pruritus, No Rash, No Skin Lesion Changes, No Other, No Acne 9-16 COVID-19 pneumonia Severe protein-caloric malnutrition , underweight CBC not suggestive of iron deficiency not c/w with bowel-related cancer Hypoxia/ IE ACUTE Hypoxic respiratory failure NSTEMI DEMETRI (acute kidney injury) hypokalemia, on replacement rx Left ventricle systolic function is severely impaired. The Ejection Fraction is 20-25%./ ECHO 2017 ACUTE METABOLIC ENCEPHALOPATHY IMPROVING Edema surrounding the terminal ileum suggestive of distal ileitis. No bowel obstruction. Appendix is negative. Rectosigmoid diverticulosis without evidence of diverticulitis. Mild/moderate pleural effusions and dependent lower lobe groundglass densities and interstitial reticulation which may represent pulmonary edema Several low-density lesions are noted within visualized portions of liver. Metastatic disease cannot be excluded. CT 2017 consult pulm med consult cardiology o2 support consult nephrology dvt prophylaxis hold nephrotoxic meds Consult GI consider liver US /conservative management might be santoyo 38 MIN pt exam, chart review, > 50% of time spent with exam, chart review, pt care coordination Vitals Vitals Vital Signs Date Time Temp Pulse Resp B/P (MAP) Pulse Ox O2 Delivery O2 Flow Rate FiO2 05/19/21 07:00 97.8 64 18 154/78 (103) 91 Nasal Cannula 6.0 97.8 Physical Exam General: Alert, Oriented X3, Cooperative, No acute distress, Other (alert to person ) Heart: Regular rate (SR with LBBB), Normal S1 Lungs: Crackles, Other Abdomen: Normal bowel sounds, Soft, No tenderness Extremities: No clubbing, No cyanosis, No edema Skin: No rashes, No significant lesion Labs LABS Laboratory Tests Test 05/18/21 19:42 05/19/21 06:45 Magnesium Level 1.7 mg/dL (1.8-2.4) Troponin I Quantitative 0.239 ng/mL (0.000-0.055) Sodium Level 137 mmol/L (136-145) Potassium Level 3.1 mmol/L (3.5-5.1) Chloride Level 93 mmol/L (98-107) Carbon Dioxide Level 37 mmol/L (21-32) Anion Gap 7 (6-14) Blood Urea Nitrogen 23 mg/dL (7-20) Creatinine 1.1 mg/dL (0.6-1.0) Estimated GFR (Cockcroft-Gault) 46.9 Glucose Level 115 mg/dL (70-99) Calcium Level 6.7 mg/dL (8.5-10.1) Phosphorus Level 3.1 mg/dL (2.6-4.7) Albumin 2.0 g/dL (3.4-5.0) Triglycerides Level 187 mg/dL (0-150) Cholesterol Level 149 mg/dL (0-200) LDL Cholesterol, Calculated 74 mg/dL (0-100) VLDL Cholesterol, Calculated 37 mg/dL (0-40) Non-HDL Cholesterol Calculated 111 mg/dL (0-129) HDL Cholesterol 38 mg/dL (40-60) Cholesterol/HDL Ratio 3.9 Assessment and Plan Assessmemt and Plan Problems Medical Problems: (1) DEMETRI (acute kidney injury) Status: Acute (2) COVID-19 Status: Acute (3) Hypoxia Status: Acute (4) NSTEMI (non-ST elevated myocardial infarction) Status: Acute (5) Person under investigation for COVID-19 Status: Acute Comment Review of Relevant I have reviewed the following items brenton (where applicable) has been applied. Labs Laboratory Tests Test 05/17/21 16:25 05/17/21 17:45 05/17/21 18:30 05/17/21 18:35 White Blood Count 7.5 x10^3/uL (4.0-11.0) Red Blood Count 5.21 x10^6/uL (3.50-5.40) Hemoglobin 16.6 g/dL (12.0-15.5) Hematocrit 50.6 % (36.0-47.0) Mean Corpuscular Volume 97 fL (79-100) Mean Corpuscular Hemoglobin 32 pg (25-35) Mean Corpuscular Hemoglobin Concent 33 g/dL (31-37) Red Cell Distribution Width 16.6 % (11.5-14.5) Platelet Count 167 x10^3/uL (140-400) Neutrophils (%) (Auto) 88 % (31-73) Lymphocytes (%) (Auto) 7 % (24-48) Monocytes (%) (Auto) 5 % (0-9) Eosinophils (%) (Auto) 0 % (0-3) Basophils (%) (Auto) 0 % (0-3) Neutrophils # (Auto) 6.6 x10^3/uL (1.8-7.7) Lymphocytes # (Auto) 0.5 x10^3/uL (1.0-4.8) Monocytes # (Auto) 0.4 x10^3/uL (0.0-1.1) Eosinophils # (Auto) 0.0 x10^3/uL (0.0-0.7) Basophils # (Auto) 0.0 x10^3/uL (0.0-0.2) Segmented Neutrophils % 93 % (35-66) Band Neutrophils % 2 % (0-9) Lymphocytes % 3 % (24-48) Monocytes % 2 % (0-10) Nucleated Red Blood Cells 1 Platelet Estimate Adequate (ADEQUATE) Polychromasia Slight Anisocytosis Slight Sodium Level 141 mmol/L (136-145) Potassium Level 3.3 mmol/L (3.5-5.1) Chloride Level 100 mmol/L (98-107) Carbon Dioxide Level 27 mmol/L (21-32) Anion Gap 14 (6-14) Blood Urea Nitrogen 25 mg/dL (7-20) Creatinine 1.2 mg/dL (0.6-1.0) Estimated GFR (Cockcroft-Gault) 42.4 BUN/Creatinine Ratio 21 (6-20) Glucose Level 78 mg/dL (70-99) Calcium Level 8.1 mg/dL (8.5-10.1) Total Bilirubin 1.6 mg/dL (0.2-1.0) Aspartate Amino Transf (AST/SGOT) 48 U/L (15-37) Alanine Aminotransferase (ALT/SGPT) 15 U/L (14-59) Alkaline Phosphatase 64 U/L (46-116) Troponin I Quantitative 0.163 ng/mL (0.000-0.055) Total Protein 6.1 g/dL (6.4-8.2) Albumin 1.8 g/dL (3.4-5.0) Albumin/Globulin Ratio 0.4 (1.0-1.7) Lipase 327 U/L (73-393) SARS-CoV-2 Antigen (Rapid) Positive (NEGATIVE) DU-Ahs-V-Type Natriuretic Peptide > 86519 pg/mL (0-449) Prothrombin Time 12.9 SEC (11.7-14.0) Prothromb Time International Ratio 1.0 (0.8-1.1) Activated Partial Thromboplast Time 28 SEC (24-38) Lactic Acid Level 1.2 mmol/L (0.4-2.0) Test 05/18/21 19:42 05/19/21 06:45 Magnesium Level 1.7 mg/dL (1.8-2.4) Troponin I Quantitative 0.239 ng/mL (0.000-0.055) Sodium Level 137 mmol/L (136-145) Potassium Level 3.1 mmol/L (3.5-5.1) Chloride Level 93 mmol/L (98-107) Carbon Dioxide Level 37 mmol/L (21-32) Anion Gap 7 (6-14) Blood Urea Nitrogen 23 mg/dL (7-20) Creatinine 1.1 mg/dL (0.6-1.0) Estimated GFR (Cockcroft-Gault) 46.9 Glucose Level 115 mg/dL (70-99) Calcium Level 6.7 mg/dL (8.5-10.1) Phosphorus Level 3.1 mg/dL (2.6-4.7) Albumin 2.0 g/dL (3.4-5.0) Triglycerides Level 187 mg/dL (0-150) Cholesterol Level 149 mg/dL (0-200) LDL Cholesterol, Calculated 74 mg/dL (0-100) VLDL Cholesterol, Calculated 37 mg/dL (0-40) Non-HDL Cholesterol Calculated 111 mg/dL (0-129) HDL Cholesterol 38 mg/dL (40-60) Cholesterol/HDL Ratio 3.9 Laboratory Tests Test 05/18/21 19:42 05/19/21 06:45 Magnesium Level 1.7 mg/dL (1.8-2.4) Troponin I Quantitative 0.239 ng/mL (0.000-0.055) Sodium Level 137 mmol/L (136-145) Potassium Level 3.1 mmol/L (3.5-5.1) Chloride Level 93 mmol/L (98-107) Carbon Dioxide Level 37 mmol/L (21-32) Anion Gap 7 (6-14) Blood Urea Nitrogen 23 mg/dL (7-20) Creatinine 1.1 mg/dL (0.6-1.0) Estimated GFR (Cockcroft-Gault) 46.9 Glucose Level 115 mg/dL (70-99) Calcium Level 6.7 mg/dL (8.5-10.1) Phosphorus Level 3.1 mg/dL (2.6-4.7) Albumin 2.0 g/dL (3.4-5.0) Triglycerides Level 187 mg/dL (0-150) Cholesterol Level 149 mg/dL (0-200) LDL Cholesterol, Calculated 74 mg/dL (0-100) VLDL Cholesterol, Calculated 37 mg/dL (0-40) Non-HDL Cholesterol Calculated 111 mg/dL (0-129) HDL Cholesterol 38 mg/dL (40-60) Cholesterol/HDL Ratio 3.9 Microbiology 05/17/21 Blood Culture - Preliminary, Resulted NO GROWTH AFTER 1 DAY Medications Current Medications Aspirin (Aspirin Chewable) 81 mg DAILY PO Last administered on 05/18/21at 08:12; Start 05/18/21 at 09:00 Furosemide (Lasix) 40 mg DAILY PO Last administered on 05/18/21at 08:12; Start 05/18/21 at 09:00 Lisinopril (Prinivil) 5 mg DAILY PO Last administered on 05/18/21at 08:11; Star t 05/18/21 at 09:00 Metoprolol Tartrate (Lopressor) 12.5 mg BID PO Last administered on 05/18/21at 20:24; Start 05/18/21 at 09:00; Stop 05/18/21 at 22:00; Status DC Hydralazine HCl (Apresoline Inj) 10 mg PRN Q4HRS PRN IVP ELEVATED BP, SEE COMMENTS Last administered on 05/18/21at 00:00; Start 05/17/21 at 22:15 Potassium Chloride (Klor-Con) 20 meq DAILYWBKFT PO ; Start 05/19/21 at 08:00 Potassium Chloride (Klor-Con) 20 meq 1X ONCE PO Last administered on 05/18/21at 09:27; Start 05/18/21 at 09:30; Stop 05/18/21 at 09:31; Status DC Dexamethasone Sodium Phosphate (Decadron) 6 mg DAILY IVP Last administered on 05/18/21at 12:08; Start 05/18/21 at 12:00 Pantoprazole Sodium (Protonix) 40 mg DAILYAC PO Last administered on 05/18/21at 17:10; Start 05/18/21 at 16:30 Aspirin (Ecotrin) 81 mg DAILYWBKFT PO ; Start 05/19/21 at 08:00 Atorvastatin Calcium (Lipitor) 20 mg QHS PO Last administered on 05/18/21at 20:23; Start 05/18/21 at 21:00 Metoprolol Succinate (Toprol Xl) 25 mg DAILY PO ; Start 05/19/21 at 09:00 Active Scripts Active Metoprolol Tartrate 25 Mg Tablet 12.5 Mg PO BID Lisinopril 5 Mg Tablet 5 Mg PO DAILY Levofloxacin 750 Mg Tablet 1 Tab PO DAILY Aspirin 81 Mg Tab.chew 1 Tab PO DAILY Vitals/I & O Vital Sign - Last 24 Hours 05/18/21 05/18/21 05/18/21 05/18/21 11:00 15:00 19:59 20:00 Temp 96.8 96.4 97.6 96.8 96.4 97.6 Pulse 64 65 70 Resp 22 22 16 B/P (MAP) 181/89 (119) 145/74 (97) 159/82 (107) Pulse Ox 94 95 96 O2 Delivery Nasal Cannula Nasal Cannula Nasal Cannula Nasal Cannula O2 Flow Rate 5.0 5.0 6.0 5.0 05/18/21 05/18/21 05/19/21 05/19/21 20:24 23:28 03:05 07:00 Temp 98.9 97.6 97.8 98.9 97.6 97.8 Pulse 65 61 62 64 Resp 20 18 18 B/P (MAP) 145/74 138/72 (94) 138/69 (92) 154/78 (103) Pulse Ox 95 91 91 O2 Delivery Nasal Cannula Nasal Cannula Nasal Cannula O2 Flow Rate 6.0 6.0 6.0 Intake and Output 05/18/21 05/18/21 05/19/21 15:00 23:00 07:00 Intake Total 210 ml 200 ml Output Total 200 ml Balance 10 ml 200 ml Justicifation of Admission Dx: Justifications for Admission: Justification of Admission Dx: Yes Sepsis: Hypoxemia BLAIR GONZALEZ MD May 19, 2021 08:43
[2021-05-19 09:35] LABS: BASO % 0 % (0-3); EOS % 0 % (0-3); HEMATOCRIT 44.1 % (36.0-47.0); HEMOGLOBIN 14.4 g/dL (12.0-15.5); LYMPH # 0.5 x10^3/uL (1.0-4.8); LYMPH % 5 % (24-48); MEAN CORPUSCULAR HEMOGLOBIN 32 pg (25-35); MEAN CORPUSCULAR HGB CONC 33 g/dL (31-37); MEAN CORPUSCULAR VOLUME 97 fL (79-100); MONO # 0.3 x10^3/uL (0.0-1.1); MONO % 3 % (0-9); NEUT # 9.9 x10^3/uL (1.8-7.7); NEUT % 92 % (31-73); PLATELET COUNT 176 x10^3/uL (140-400); RED BLOOD COUNT 4.57 x10^6/uL (3.50-5.40); RED CELL DISTRIBUTION WIDTH 16.1 % (11.5-14.5); WHITE BLOOD COUNT 10.7 x10^3/uL (4.0-11.0)
--- NOTE | 2021-05-19 09:45 | NUR ---
SS following up with discharge planning. SS reviewed pt chart and discussed with pt RN. Pt is currently requiring oxygen at six liters nasal canula. COVID19 positive. Pt has home oxygen (Baseline 3 liters PRN). Pt on IV Decadron. Pt confused. Nephrology, GI, Cardiology, and Pulmonology following. SS will continue to follow for discharge planning.
--- NOTE | 2021-05-19 10:26 | PDOC ---
DATE OF SERVICE DATE: 05/19/21 TIME: 10:24 SUBJECTIVE ROS stable OBJECTIVE Vital Signs Vital Signs Date Time Temp Pulse Resp B/P (MAP) Pulse Ox O2 Delivery O2 Flow Rate FiO2 05/19/21 08:42 64 154/78 05/19/21 08:00 Nasal Cannula 6.0 05/19/21 07:00 97.8 18 91 97.8 I & 0 Intake and Output 05/19/21 07:00 Intake Total 410 ml Output Total 200 ml Balance 210 ml Intake Oral 410 ml Output Urine Total 200 ml # Voids 4 PHYSICAL EXAM Physical Exam General NAD HEEN on o2 by NC, OM moist Neck supple Lungs decreased at bases CV S1S2 Abd soft , NT, BS + No clark, No cva or sp tenderness Neuro Confused, AMS Derm Rash DIAGNOSIS/ASSESSMENT Assessment & Plan DEMETRI - Vasomotor / UA ordered- Not done . supportive care , Improving renal function . UOP? accuracy. Supportive care, maintain Hydration Avoid nephrotoxins, Strict I/O . Monitor CT scan No hydronephrosis Renal Cyst - Right renal lower pole 2 cm cyst density 10 units. Ac Hypoxic Resp failure Mild/moderate pleural effusions and dependent lower lobe groundglass densities and interstitial reticulation which may represent pulmonary edema. Atypical infection or pneumonitis would be additional considerations.Currently on O2 5lts by [place] CoVid 19 Pneumonia HypoAlbuminemia- Alb 1.8 HTN- On Furosmide and Lisinopril COMMENT/RELEVANT DATA Meds Current Medications Medications (Trade) Dose Ordered Sig/Brice Start Time Stop Time Status Last Admin Dose Admin Aspirin (Aspirin Chewable) 81 mg DAILY 05/18/21 09:00 05/19/21 08:42 81 MG Aspirin (Ecotrin) 81 mg [id number] 05/19/21 08:00 Atorvastatin Calcium (Lipitor) 20 mg QHS 05/18/21 21:00 05/18/21 20:23 20 MG Dexamethasone Sodium Phosphate (Decadron) 6 mg DAILY 05/18/21 12:00 05/19/21 08:43 6 MG Furosemide (Lasix) 40 mg DAILY 05/18/21 09:00 05/19/21 08:41 40 MG Hydralazine HCl (Apresoline Inj) 10 mg PRN Q4HRS PRN 05/17/21 22:15 05/18/21 00:00 10 MG Lisinopril (Prinivil) 5 mg DAILY 05/18/21 09:00 05/19/21 08:42 5 MG Metoprolol Succinate (Toprol Xl) 25 mg DAILY 05/19/21 09:00 05/19/21 08:41 25 MG Metoprolol Tartrate (Lopressor) 12.5 mg BID 05/18/21 09:00 05/18/21 22:00 DC 05/18/21 20:24 12.5 MG Pantoprazole Sodium (Protonix) 40 mg DAILYAC 05/18/21 16:30 05/19/21 08:42 40 MG Potassium Chloride (Klor-Con) 20 meq 1X ONCE 05/18/21 09:30 05/18/21 09:31 DC 05/18/21 09:27 20 MEQ Lab Laboratory Tests Test 05/18/21 19:42 05/19/21 06:45 05/19/21 09:20 Magnesium Level 1.7 mg/dL (1.8-2.4) Troponin I Quantitative 0.239 ng/mL (0.000-0.055) Sodium Level 137 mmol/L (136-145) Potassium Level 3.1 mmol/L (3.5-5.1) Chloride Level 93 mmol/L (98-107) Carbon Dioxide Level 37 mmol/L (21-32) Anion Gap 7 (6-14) Blood Urea Nitrogen 23 mg/dL (7-20) Creatinine 1.1 mg/dL (0.6-1.0) Estimated GFR (Cockcroft-Gault) 46.9 Glucose Level 115 mg/dL (70-99) Calcium Level 6.7 mg/dL (8.5-10.1) Phosphorus Level 3.1 mg/dL (2.6-4.7) Albumin 2.0 g/dL (3.4-5.0) Triglycerides Level 187 mg/dL (0-150) Cholesterol Level 149 mg/dL (0-200) LDL Cholesterol, Calculated 74 mg/dL (0-100) VLDL Cholesterol, Calculated 37 mg/dL (0-40) Non-HDL Cholesterol Calculated 111 mg/dL (0-129) HDL Cholesterol 38 mg/dL (40-60) Cholesterol/HDL Ratio 3.9 White Blood Count 10.7 x10^3/uL (4.0-11.0) Red Blood Count 4.57 x10^6/uL (3.50-5.40) Hemoglobin 14.4 g/dL (12.0-15.5) Hematocrit 44.1 % (36.0-47.0) Mean Corpuscular Volume 97 fL (79-100) Mean Corpuscular Hemoglobin 32 pg (25-35) Mean Corpuscular Hemoglobin Concent 33 g/dL (31-37) Red Cell Distribution Width 16.1 % (11.5-14.5) Platelet Count 176 x10^3/uL (140-400) Neutrophils (%) (Auto) 92 % (31-73) Lymphocytes (%) (Auto) 5 % (24-48) Monocytes (%) (Auto) 3 % (0-9) Eosinophils (%) (Auto) 0 % (0-3) Basophils (%) (Auto) 0 % (0-3) Neutrophils # (Auto) 9.9 x10^3/uL (1.8-7.7) Lymphocytes # (Auto) 0.5 x10^3/uL (1.0-4.8) Monocytes # (Auto) 0.3 x10^3/uL (0.0-1.1) Eosinophils # (Auto) 0.0 x10^3/uL (0.0-0.7) Basophils # (Auto) 0.0 x10^3/uL (0.0-0.2) Results All relevant outside records, renal labs, imaging studies, telemetry/EKG's were reviewed. Justicifation of Admission Dx: Justifications for Admission: Justification of Admission Dx: N/A KEE STRONG MD May 19, 2021 10:26
[2021-05-19 10:34] VITALS: BP 168/81
--- NOTE | 2021-05-19 11:06 | PDOC ---
Date of Service: DATE: 05/19/21 TIME: 11:02 Objective: Objective: No GI concerns per nurse, no bleeding. Confused. Vital Signs: Vital Signs Date Time Temp Pulse Resp B/P (MAP) Pulse Ox O2 Delivery O2 Flow Rate FiO2 05/19/21 10:34 98.0 64 20 168/81 (110) 93 Nasal Cannula 5.0 98.0 Labs: Laboratory Tests Test 05/18/21 19:42 05/19/21 06:45 05/19/21 09:20 Magnesium Level 1.7 mg/dL Troponin I Quantitative 0.239 ng/mL Sodium Level 137 mmol/L Potassium Level 3.1 mmol/L Chloride Level 93 mmol/L Carbon Dioxide Level 37 mmol/L Anion Gap 7 Blood Urea Nitrogen 23 mg/dL Creatinine 1.1 mg/dL Estimated GFR (Cockcroft-Gault) 46.9 Glucose Level 115 mg/dL Calcium Level 6.7 mg/dL Phosphorus Level 3.1 mg/dL Albumin 2.0 g/dL Triglycerides Level 187 mg/dL Cholesterol Level 149 mg/dL LDL Cholesterol, Calculated 74 mg/dL VLDL Cholesterol, Calculated 37 mg/dL Non-HDL Cholesterol Calculated 111 mg/dL HDL Cholesterol 38 mg/dL Cholesterol/HDL Ratio 3.9 White Blood Count 10.7 x10^3/uL Red Blood Count 4.57 x10^6/uL Hemoglobin 14.4 g/dL Hematocrit 44.1 % Mean Corpuscular Volume 97 fL Mean Corpuscular Hemoglobin 32 pg Mean Corpuscular Hemoglobin Concent 33 g/dL Red Cell Distribution Width 16.1 % Platelet Count 176 x10^3/uL Neutrophils (%) (Auto) 92 % Lymphocytes (%) (Auto) 5 % Monocytes (%) (Auto) 3 % Eosinophils (%) (Auto) 0 % Basophils (%) (Auto) 0 % Neutrophils # (Auto) 9.9 x10^3/uL Lymphocytes # (Auto) 0.5 x10^3/uL Monocytes # (Auto) 0.3 x10^3/uL Eosinophils # (Auto) 0.0 x10^3/uL Basophils # (Auto) 0.0 x10^3/uL PE: GEN: COVID isolation - visual exam done LUNGS: 5L NC HEART: RR per chart ABD: non-distended NEURO/PSYCH: awake, facing away from doorway A/P: COVID pneumonia, CHF ?hematochezia - resolved Liver lesions - benign -- Observe GI-santoyo. Justicifation of Admission Dx: Justifications for Admission: Justification of Admission Dx: Yes DANIELITO SANCHEZ May 19, 2021 11:06
--- NOTE | 2021-05-19 11:07 | PDOC ---
[facility] OFFICE ASSISTANT 05/19/21 1107: CARDIO Progress Notes Date and Time Date of Service 05/19/21 Time of Evaluation 1055 Subjective Subjective: Other (no complaints ) Vitals Vitals Vital Signs Date Time Temp Pulse Resp B/P (MAP) Pulse Ox O2 Delivery O2 Flow Rate FiO2 05/19/21 10:34 98.0 64 20 168/81 (110) 93 Nasal Cannula 5.0 98.0 Weight Weight [ ] Input and Output Intake and Output Intake and Output 05/19/21 07:00 Intake Total 410 ml Output Total 200 ml Balance 210 ml Intake Oral 410 ml Output Urine Total 200 ml # Voids 4 Laboratory Labs Laboratory Tests Test 05/18/21 19:42 05/19/21 06:45 05/19/21 09:20 Magnesium Level 1.7 mg/dL (1.8-2.4) Troponin I Quantitative 0.239 ng/mL (0.000-0.055) Sodium Level 137 mmol/L (136-145) Potassium Level 3.1 mmol/L (3.5-5.1) Chloride Level 93 mmol/L (98-107) Carbon Dioxide Level 37 mmol/L (21-32) Anion Gap 7 (6-14) Blood Urea Nitrogen 23 mg/dL (7-20) Creatinine 1.1 mg/dL (0.6-1.0) Estimated GFR (Cockcroft-Gault) 46.9 Glucose Level 115 mg/dL (70-99) Calcium Level 6.7 mg/dL (8.5-10.1) Phosphorus Level 3.1 mg/dL (2.6-4.7) Albumin 2.0 g/dL (3.4-5.0) Triglycerides Level 187 mg/dL (0-150) Cholesterol Level 149 mg/dL (0-200) LDL Cholesterol, Calculated 74 mg/dL (0-100) VLDL Cholesterol, Calculated 37 mg/dL (0-40) Non-HDL Cholesterol Calculated 111 mg/dL (0-129) HDL Cholesterol 38 mg/dL (40-60) Cholesterol/HDL Ratio 3.9 White Blood Count 10.7 x10^3/uL (4.0-11.0) Red Blood Count 4.57 x10^6/uL (3.50-5.40) Hemoglobin 14.4 g/dL (12.0-15.5) Hematocrit 44.1 % (36.0-47.0) Mean Corpuscular Volume 97 fL (79-100) Mean Corpuscular Hemoglobin 32 pg (25-35) Mean Corpuscular Hemoglobin Concent 33 g/dL (31-37) Red Cell Distribution Width 16.1 % (11.5-14.5) Platelet Count 176 x10^3/uL (140-400) Neutrophils (%) (Auto) 92 % (31-73) Lymphocytes (%) (Auto) 5 % (24-48) Monocytes (%) (Auto) 3 % (0-9) Eosinophils (%) (Auto) 0 % (0-3) Basophils (%) (Auto) 0 % (0-3) Neutrophils # (Auto) 9.9 x10^3/uL (1.8-7.7) Lymphocytes # (Auto) 0.5 x10^3/uL (1.0-4.8) Monocytes # (Auto) 0.3 x10^3/uL (0.0-1.1) Eosinophils # (Auto) 0.0 x10^3/uL (0.0-0.7) Basophils # (Auto) 0.0 x10^3/uL (0.0-0.2) Microbiology Micro Microbiology 05/17/21 Blood Culture - Preliminary, Resulted NO GROWTH AFTER 1 DAY Physical Exam HEENT: Neck Supple W Full Motion Chest: Symmetric LUNGS: Other (on NC) Heart: RRR, no gallops Extremities: No Edema Neurology: alert, follow commands, confused Assessment Assessment 1. Acute respiratory failure secondary to COVID PNA 2. Mild troponin elevation; most probably type II, demand ischemia in setting of above. 3. Acute on chronic systolic CHF, cardiomyopathy; Echo 2017 with LVEF 20-25%. appears compensated 4. Hypertensive urgency; labile 5 . Hyperlipidemia 6. Hematochezia; hemorrhoidal bleeding. H and H stable 7. Hypokalemia 8. LBBB Recommendations ASA unless further bleeding noted. Increase lisinopril for BP control. Hydralazine IV PRN Replace K. Check Mg and replace as warranted HF optimization with Toprol, lisinopril Ongoing lung optimization, treatment of COVID Supportive care Justicifation of Admission Dx: Justifications for Admission: Justification of Admission Dx: Yes Comments: Acute respiratory failure COVID PNA KARTIK FIERRO MD 05/19/21 1711: CARDIO Progress Notes Assessment Assessment Agree with CARDIOVASCULAR DISEASE SPECIALIST's assessment and plan. Acute respiratory failure secondary to Covid pneumonia. Slight troponin elevation probably demand ischemia. Chronic systolic heart failure clinically well compensated. Agree with increasing lisinopril dose for better blood pressure control. JUDE JOHNSON APRN May 19, 2021 11:07 KARTIK FIERRO MD May 19, 2021 17:11
--- NOTE | 2021-05-19 13:37 | NUR ---
NURSING PT CONTINUES TO BE CONFUSED, SHE IS ORIENTED TO NAME, ET FOLLOWS DIRECTION. SHE IS CALM ET COOPERATIVE, THOUGH MAKES IMPULSIVE ATTEMPTS TO GET OOB UNASSISTED. BED ALARM IN USE. PT ACCIDENTALLY DISLODGED OWN IV THIS AM. SKIN IS PAPER THIN, ET LOW AMOUNTS OF SUBQ TISSUE ALLOWS VEINS TO ROLL, CAUSING DIFFICULTY PLACING A NEW LINE. MULTIPLE ATTEMPTS MADE, FINALLY 22G PLACED IN (L) FA BY NURSING BROOMCORN GRADER. O2 DEMANDS HAVE REMAINED CONSISTENT. URINARY INCONTINENCE REMAINS AN ISSUE, CAUSING POOR ACCURACY OF I/O, WELL INABILITY TO CATCH URINE SAMPLE. FAMILY CALLED TO CHECK ON PATIENT.
--- NOTE | 2021-05-19 14:16 | NUR ---
STATEMENT PROCESSOR WAS ABLE TO COLLECT URINE DURING PATIENT BATHING ENCOUNTER. SAT PT ON COMMODE WHILE DOING WARM WIPE BATH. URINE SENT TO LAB. AWAITING RESULT.
[2021-05-19 14:33] LABS: BILIRUBIN,URINE NEGATIVE (NEG); CLARITY,URINE CLEAR; COLOR,URINE YELLOW; NITRITE,URINE NEGATIVE (NEG); PH,URINE 6.5 (<5.0-8.0); PROTEIN,URINE NEGATIVE (NEG-TRACE); UROBILINOGEN,URINE 0.2 mg/dL (0.2 mg/dL)
[2021-05-19 14:47] LABS: BACTERIA,URINE 0 /HPF (0-FEW); WBC,URINE 0 /HPF (0-4)
[2021-05-19 15:00] VITALS: BP 155/74
[2021-05-19] MEDS ORDERED: LISINOPRIL 10 MG TABLET PO ONE (15:30)
[2021-05-19] MEDS ORDERED: POTASSIUM CHLORIDE 20 MEQ TABLET.ER. PO ONE (15:30)
[2021-05-19 18:32] VITALS: BP 154/79
[2021-05-19] MEDS: ATORVASTATIN CALCIUM 20 MG TABLET PO SCH (21:00)
[2021-05-19 22:06] VITALS: BP 147/83
[2021-05-20 03:58] VITALS: BP 167/78
[2021-05-20 04:59] LABS: CALCIUM 7.1 mg/dL (8.5-10.1); CREATININE 1.1 mg/dL (0.6-1.0); GFR 46.9; POTASSIUM 3.7 mmol/L (3.5-5.1)
[2021-05-20 07:00] VITALS: BP 184/82
--- NOTE | 2021-05-20 07:34 | PDOC ---
PROGRESS NOTES Date of Service: DATE: 05/20/21 TIME: 07:34 Chief Complaint Chief Complaint VTE Prophylaxis Ordered VTE Prophylaxis Devices: No VTE Pharmacological Prophylaxi: Yes Assessment/Plan Assessment/Plan Impression: COVID-19 pneumonia Severe protein-caloric malnutrition , underweight Hypoxia/ IE ACUTE Hypoxic respiratory failure NSTEMI DEMETRI (acute kidney injury) hypokalemia, on replacement rx Left ventricle systolic function is severely impaired. The Ejection Fraction is 20-25%./ ECHO 2017 ACUTE METABOLIC ENCEPHALOPATHY Edema surrounding the terminal ileum suggestive of distal ileitis. No bowel obstruction. Appendix is negative. Rectosigmoid diverticulosis without evidence of diverticulitis. Mild/moderate pleural effusions and dependent lower lobe groundglass densities and interstitial reticulation which may represent pulmonary edema Several low-density lesions are noted within visualized portions of liver. Metastatic disease cannot be excluded. CT 2017 Mild troponin elevation; most probably type II, demand ischemia in setting of above. Acute on chronic systolic CHF, cardiomyopathy; Echo 2017 with LVEF 20-25%. appears compensated ADMITTED===== consult pulm med consult cardiology o2 support consult nephrology dvt prophylaxis hold nephrotoxic meds Consult GI 05-20 NEED TO UPDATE CODE STATUS Justifications for Admission Justifications for Admission Other Justification BLAIR GONZALEZ MD May 18, 2021 08:49 History of Present Illness History of Present Illness Identification/Chief Complaint Chief Complaint CONFUSION, RECTAL BLEEDING, COUGH History of Present Illness History of Present Illness poor historian and has no complaints except SOA, rectal bleeding Covid pos in er [employer] hx bright red bloody bowel movement AM OF 9-14 . Per EMS patient's family is positive for Covid Rectosigmoid diverticulosis ON RECENT CT / confused (AMS) and its not her baseline / only oriented to self RECENT ECHO IN 2017 / Left ventricle systolic function is severely impaired. The Ejection Fraction is 20-25%./ ECHO 2017 COVID POS IN ER WITH ACUTE METABOLIC ENCEPHALOPATHY / Hematochezia. Blood in stool. STARTED ON IV DEXAMETHASONE 6 MG IV TROPONIN I 0.631 IN er Several low-density lesions are noted within visualized portions of liver. / Metastatic disease cannot be excluded. [address] abd Edema surrounding the terminal ileum suggestive of distal ileitis. No bowel obstruction. Appendix is negative. / Rectosigmoid diverticulosis without evidence of diverticulitis. Mild/moderate pleural effusions and dependent lower lobe groundglass densities and interstitial reticulation which may represent pulmonary edema PLAN == ADMIT // consult pulm med / consult cardiology / o2 support / consult nephrology /dvt prophylaxis / hold nephrotoxic meds Past Medical History Past Medical History Past Medical History Past Medical History Past Medical History: Hypertension Additional Past Medical Histor: BLEEDING ULCERS Past Surgical History: No Surgical History Smoking Status: Never Smoker Alcohol Use: None Drug Use: None Cardiovascular: HTN, Hyperlipidemia Pulmonary: COPD CENTRAL NERVOUS SYSTEM: Dementia Musculoskeletal: Osteoarthritis, Weakness Past Surgical History Past Surgical History: No pertinent history Family History Family History: High Cholestrol, Hypertension Social History Smoke: No ALCOHOL: none Drugs: None Current Problem List Problem List Problems Medical Problems: (1) DEMETRI (acute kidney injury) Status: Acute (2) COVID-19 Status: Acute (3) Hypoxia Status: Acute (4) NSTEMI (non-ST elevated myocardial infarction) Status: Acute (5) Person under investigation for COVID-19 Status: Acute Current Medications Current Medications Current Medications Aspirin (Aspirin Chewable) 81 mg DAILY PO Last administered on 05/18/21at 08:12; Start 05/18/21 at 09:00 Furosemide (Lasix) 40 mg DAILY PO Last administered on 05/18/21at 08:12; Start 05/18/21 at 09:00 Lisinopril (Prinivil) 5 mg DAILY PO Last administered on 05/18/21at 08:11; Start 05/18/21 at 09:00 Metoprolol Tartrate (Lopressor) 12.5 mg BID PO Last administered on 05/18/21at 08:12; Start 05/18/21 at 09:00 Hydralazine HCl (Apresoline Inj) 10 mg PRN Q4HRS PRN IVP ELEVATED BP, SEE COMMENTS Last administered on 05/18/21at 00:00; Start 05/17/21 at 22:15 Active Scripts Active Metoprolol Tartrate 25 Mg Tablet 12.5 Mg PO BID Lisinopril 5 Mg Tablet 5 Mg PO DAILY Lasix (Furosemide) 40 Mg Tablet 1 Tab PO DAILY Levofloxacin 750 Mg Tablet 1 Tab PO DAILY Aspirin 81 Mg Tab.chew 1 Tab PO DAILY Allergies Allergies: Coded Allergies: Penicillins (Verified Allergy, Intermediate, 11/15/16) Sulfa (Sulfonamide Antibiotics) (Verified Allergy, Intermediate, 11/15/16) ROS Review of System 14 pt ros otherwise neg General: YES: Fatigue; No: Chills, Night Sweats, Malaise, Appetite, Other PSYCHOLOGICAL ROS: YES: Concentration difficultie, Disorientation, Memory difficulties; No: Anxiety, Behavioral Disorder, Decreased libido, Depression, Hallucinations, Hostility, Irritablity, Mood Swings, Obsessive thoughts, Physical abuse, Sexual abuse, Sleep disturbances, Suicidal ideation, Other Eyes: No Blurry vision, No Decreased vision, No Double vision, No Dry eyes, No Excessive tearing, No Eye Pain, No Itchy Eyes, No Loss of vision, No Photophobia, No Scotomata, No Uses contacts, No Uses glasses, No Other HEENT: No: Heacaches, Visual Changes, Hearing change, Nasal congestion, Nasal discharge, Oral lesions, Sinus pain, Sore Throat, Epistaxis, Sneezing, Snoring, Tinnitus, Vertigo, Vocal changes, Other ALLERGY AND IMMUNOLOGY: YES: Hives; No: Insect Bite Sensitivity, Itchy/Watery Eyes, Nasal Congestion, Post Nasal Drip, Seasonal Allergies, Other Hematological and Lymphatic: YES: Bleeding Problems; No: Blood Clots, Blood Transfusions, Brusing, Night Sweats, Pallor, Swollen Lymph Nodes, Other ENDOCRINE: No: Breast Changes, Galactorrhea, Hair Pattern Changes, Hot Flashes, Malaise/lethargy, Mood Swings, Palpitations, Polydipsia/polyuria, Skin Changes, Temperature Intolerance, Unexpected Weight Changes, Other Breast: No New/Changing Breast Lumps, No Nipple changes, No Nipple discharge, No Other Respiratory: YES: Shortness of breath, SOB with excertion Cardiovascular: No Chest Pain, No Palpitations, No Orthopnea, No Paroxysmal Noc. Dyspnea, No Edema, No Lt Headedness, No Other Gastrointestinal: No Nausea, No Vomiting, No Abdominal Pain, No Diarrhea, No Constipation, No Melena, No Hematochezia, No Other Genitourinary: No Dysuria, No Frequency, No Incontinence, No Hematuria, No Retention, No Discharge, No Urgency, No Pain, No Flank Pain, No Other, No , No , No , No , No , No , No Musculoskeletal: Yes Joint Stiffness; No Gait Disturbance, No Joint Pain, No Joint Swelling, No Muscle Pain, No Muscular Weakness, No Pain In:, No Swelling In:, No Other Neurological: Yes Confusion; No Behavorial Changes, No Bowel/Bladder ControlChng, No Dizziness, No Gait Disturbance, No Headaches, No Impaired Coord/balance, No Memory Loss, No Numbness/Tingling, No Seizures, No Speech Problems, No Tremors, No Visual Changes, No Weakness, No Other Skin: Yes Dry Skin; No Eczema, No Hair Changes, No Lumps, No Mole Changes, No Mottling, No Nail Changes, No Pruritus, No Rash, No Skin Lesion Changes, No Other, No Acne 9-16 COVID-19 pneumonia Severe protein-caloric malnutrition , underweight CBC not suggestive of iron deficiency not c/w with bowel-related cancer Hypoxia/ IE ACUTE Hypoxic respiratory failure Mild troponin elevation; most probably type II, demand ischemia in setting of above. Acute on chronic systolic CHF, cardiomyopathy; Echo 2017 with LVEF 20-25%. compensated NSTEMI DEMETRI (acute kidney injury) hypokalemia, on replacement rx Left ventricle systolic function is severely impaired. The Ejection Fraction is 20-25%./ ECHO 2017 ACUTE METABOLIC ENCEPHALOPATHY IMPROVING Edema surrounding the terminal ileum suggestive of distal ileitis. No bowel o bstruction. Appendix is negative. Rectosigmoid diverticulosis without evidence of diverticulitis. Mild/moderate pleural effusions and dependent lower lobe groundglass densities and interstitial reticulation which may represent pulmonary edema Several low-density lesions are noted within visualized portions of liver. Metastatic disease cannot be excluded. CT 2017 consult pulm med consult cardiology o2 support consult nephrology dvt prophylaxis hold nephrotoxic meds Consult GI consider liver US /conservative management might be santoyo 38 MIN pt exam, chart review, > 50% of time spent with exam, chart review, pt care coordination 05-20 CXR 05-20 PENDING , ABG COVID-19 pneumonia Severe protein-caloric malnutrition , underweight CBC not suggestive of iron deficiency not c/w with bowel-related cancer Hypoxia/ IE ACUTE Hypoxic respiratory failure Mild troponin elevation; most probably type II, demand ischemia in setting of above. Acute on chronic systolic CHF, cardiomyopathy; Echo 2017 with LVEF 20-25%. compensated NSTEMI DEMETRI (acute kidney injury) hypokalemia, on replacement rx Left ventricle systolic function is severely impaired. The Ejection Fraction is 20-25%./ ECHO 2017 ACUTE METABOLIC ENCEPHALOPATHY IMPROVING Edema surrounding the terminal ileum suggestive of distal ileitis. No bowel obstruction. Appendix is negative. Rectosigmoid diverticulosis without evidence of diverticulitis. Mild/moderate pleural effusions and dependent lower lobe groundglass densities and interstitial reticulation which may represent pulmonary edema Several low-density lesions are noted within visualized portions of liver. Metastatic disease cannot be excluded. CT 2017 consult pulm med consult cardiology o2 support consult nephrology dvt prophylaxis hold nephrotoxic meds Consult GI consider liver US /conservative management is santoyo ferritin in AM 36 MIN pt exam, chart review, > 50% of time spent with exam, chart review, pt care coordination Vitals Vitals Vital Signs Date Time Temp Pulse Resp B/P (MAP) Pulse Ox O2 Delivery O2 Flow Rate FiO2 05/20/21 03:58 75 20 167/78 (107) 91 Nasal Cannula 6.0 05/19/21 22:06 99.7 99.7 Physical Exam General: Alert, Oriented X3, Cooperative, No acute distress, Other (alert to person ) Heart: Regular rate (SR with LBBB), Normal S1 Lungs: Crackles, Other Abdomen: Normal bowel sounds, Soft, No tenderness Extremities: No clubbing, No cyanosis, No edema Skin: No rashes, No significant lesion Labs LABS PATIENT: DIGNA HYMAN AACCOUNT: [id number] : 1930 LOCATION: ER AGE: 89 SEX: F EXAM STATUS: REG ER ORD. PHYSICIAN: DOE HERCULES DO REASON: bloody stpp; PROCEDURE: CHEST AP ONLY EXAM: CHEST 1 VIEW History: Bloody sputum COMPARISON: 08/29/2016 TECHNIQUE: Single portable radiograph of the chest FINDINGS: Mild cardiomegaly. Moderate prominent appearing bilateral digital lung markings likely congestive changes or interstitial infiltrates. Probable small bilateral pleural effusions. . IMPRESSION: Moderate prominent appearing bilateral interstitial lung markings likely congestive changes or interstitial infiltrates. Electronically signed by: Juaquin Klein MD (05/17/2021 5:18 PM) [id number] DICTATED and SIGNED BY: JUAQUIN KLEIN MD DATE: 05/17/21 [id number] Laboratory Tests Test 05/19/21 09:20 05/19/21 14:06 05/20/21 04:15 White Blood Count 10.7 x10^3/uL (4.0-11.0) Red Blood Count 4.57 x10^6/uL (3.50-5.40) Hemoglobin 14.4 g/dL (12.0-15.5) Hematocrit 44.1 % (36.0-47.0) Mean Corpuscular Volume 97 fL (79-100) Mean Corpuscular Hemoglobin 32 pg (25-35) Mean Corpuscular Hemoglobin Concent 33 g/dL (31-37) Red Cell Distribution Width 16.1 % (11.5-14.5) Platelet Count 176 x10^3/uL (140-400) Neutrophils (%) (Auto) 92 % (31-73) Lymphocytes (%) (Auto) 5 % (24-48) Monocytes (%) (Auto) 3 % (0-9) Eosinophils (%) (Auto) 0 % (0-3) Basophils (%) (Auto) 0 % (0-3) Neutrophils # (Auto) 9.9 x10^3/uL (1.8-7.7) Lymphocytes # (Auto) 0.5 x10^3/uL (1.0-4.8) Monocytes # (Auto) 0.3 x10^3/uL (0.0-1.1) Eosinophils # (Auto) 0.0 x10^3/uL (0.0-0.7) Basophils # (Auto) 0.0 x10^3/uL (0.0-0.2) Urine Collection Type Unknown Urine Color Yellow Urine Clarity Clear Urine pH 6.5 (<5.0-8.0) Urine Specific [place] <=1.005 (1.000-1.030) Urine Protein Negative mg/dL (NEG-TRACE) Urine Glucose (UA) Negative mg/dL (NEG) Urine Ketones (Stick) Negative mg/dL (NEG) Urine Blood Trace (NEG) Urine Nitrite Negative (NEG) Urine Bilirubin Negative (NEG) Urine Urobilinogen Dipstick 0.2 mg/dL (0.2 mg/dL) Urine Leukocyte Esterase Negative (NEG) Urine RBC 3-5 /HPF (0-2) Urine WBC 0 /HPF (0-4) Urine Bacteria 0 /HPF (0-FEW) Sodium Level 138 mmol/L (136-145) Potassium Level 3.7 mmol/L (3.5-5.1) Chloride Level 95 mmol/L (98-107) Carbon Dioxide Level 38 mmol/L (21-32) Anion Gap 5 (6-14) Blood Urea Nitrogen 23 mg/dL (7-20) Creatinine 1.1 mg/dL (0.6-1.0) Estimated GFR (Cockcroft-Gault) 46.9 Glucose Level 106 mg/dL (70-99) Calcium Level 7.1 mg/dL (8.5-10.1) Assessment and Plan Assessmemt and Plan Problems Medical Problems: (1) DEMETRI (acute kidney injury) Status: Acute (2) COVID-19 Status: Acute (3) Hypoxia Status: Acute (4) NSTEMI (non-ST elevated myocardial infarction) Status: Acute (5) Person under investigation for COVID-19 Status: Acute Comment Review of Relevant I have reviewed the following items brenton (where applicable) has been applied. Labs Laboratory Tests Test 05/18/21 19:42 05/19/21 06:45 05/19/21 09:20 05/19/21 14:06 Magnesium Level 1.7 mg/dL (1.8-2.4) 1.8 mg/dL (1.8-2.4) Troponin I Quantitative 0.239 ng/mL (0.000-0.055) 0.201 ng/mL (0.000-0.055) Sodium Level 137 mmol/L (136-145) Potassium Level 3.1 mmol/L (3.5-5.1) Chloride Level 93 mmol/L (98-107) Carbon Dioxide Level 37 mmol/L (21-32) Anion Gap 7 (6-14) Blood Urea Nitrogen 23 mg/dL (7-20) Creatinine 1.1 mg/dL (0.6-1.0) Estimated GFR (Cockcroft-Gault) 46.9 Glucose Level 115 mg/dL (70-99) Calcium Level 6.7 mg/dL (8.5-10.1) Phosphorus Level 3.1 mg/dL (2.6-4.7) Albumin 2.0 g/dL (3.4-5.0) Triglycerides Level 187 mg/dL (0-150) Cholesterol Level 149 mg/dL (0-200) LDL Cholesterol, Calculated 74 mg/dL (0-100) VLDL Cholesterol, Calculated 37 mg/dL (0-40) Non-HDL Cholesterol Calculated 111 mg/dL (0-129) HDL Cholesterol 38 mg/dL (40-60) Cholesterol/HDL Ratio 3.9 White Blood Count 10.7 x10^3/uL (4.0-11.0) Red Blood Count 4.57 x10^6/uL (3.50-5.40) Hemoglobin 14.4 g/dL (12.0-15.5) Hematocrit 44.1 % (36.0-47.0) Mean Corpuscular Volume 97 fL (79-100) Mean Corpuscular Hemoglobin 32 pg (25-35) Mean Corpuscular Hemoglobin Concent 33 g/dL (31-37) Red Cell Distribution Width 16.1 % (11.5-14.5) Platelet Count 176 x10^3/uL (140-400) Neutrophils (%) (Auto) 92 % (31-73) Lymphocytes (%) (Auto) 5 % (24-48) Monocytes (%) (Auto) 3 % (0-9) Eosinophils (%) (Auto) 0 % (0-3) Basophils (%) (Auto) 0 % (0-3) Neutrophils # (Auto) 9.9 x10^3/uL (1.8-7.7) Lymphocytes # (Auto) 0.5 x10^3/uL (1.0-4.8) Monocytes # (Auto) 0.3 x10^3/uL (0.0-1.1) Eosinophils # (Auto) 0.0 x10^3/uL (0.0-0.7) Basophils # (Auto) 0.0 x10^3/uL (0.0-0.2) Urine Collection Type Unknown Urine Color Yellow Urine Clarity Clear Urine pH 6.5 (<5.0-8.0) Urine Specific [place] <=1.005 (1.000-1.030) Urine Protein Negative mg/dL (NEG-TRACE) Urine Glucose (UA) Negative mg/dL (NEG) Urine Ketones (Stick) Negative mg/dL (NEG) Urine Blood Trace (NEG) Urine Nitrite Negative (NEG) Urine Bilirubin Negative (NEG) Urine Urobilinogen Dipstick 0.2 mg/dL (0.2 mg/dL) Urine Leukocyte Esterase Negative (NEG) Urine RBC 3-5 /HPF (0-2) Urine WBC 0 /HPF (0-4) Urine Bacteria 0 /HPF (0-FEW) Test 05/20/21 04:15 Sodium Level 138 mmol/L (136-145) Potassium Level 3.7 mmol/L (3.5-5.1) Chloride Level 95 mmol/L (98-107) Carbon Dioxide Level 38 mmol/L (21-32) Anion Gap 5 (6-14) Blood Urea Nitrogen 23 mg/dL (7-20) Creatinine 1.1 mg/dL (0.6-1.0) Estimated GFR (Cockcroft-Gault) 46.9 Glucose Level 106 mg/dL (70-99) Calcium Level 7.1 mg/dL (8.5-10.1) Laboratory Tests Test 05/19/21 09:20 05/19/21 14:06 05/20/21 04:15 White Blood Count 10.7 x10^3/uL (4.0-11.0) Red Blood Count 4.57 x10^6/uL (3.50-5.40) Hemoglobin 14.4 g/dL (12.0-15.5) Hematocrit 44.1 % (36.0-47.0) Mean Corpuscular Volume 97 fL (79-100) Mean Corpuscular Hemoglobin 32 pg (25-35) Mean Corpuscular Hemoglobin Concent 33 g/dL (31-37) Red Cell Distribution Width 16.1 % (11.5-14.5) Platelet Count 176 x10^3/uL (140-400) Neutrophils (%) (Auto) 92 % (31-73) Lymphocytes (%) (Auto) 5 % (24-48) Monocytes (%) (Auto) 3 % (0-9) Eosinophils (%) (Auto) 0 % (0-3) Basophils (%) (Auto) 0 % (0-3) Neutrophils # (Auto) 9.9 x10^3/uL (1.8-7.7) Lymphocytes # (Auto) 0.5 x10^3/uL (1.0-4.8) Monocytes # (Auto) 0.3 x10^3/uL (0.0-1.1) Eosinophils # (Auto) 0.0 x10^3/uL (0.0-0.7) Basophils # (Auto) 0.0 x10^3/uL (0.0-0.2) Urine Collection Type Unknown Urine Color Yellow Urine Clarity Clear Urine pH 6.5 (<5.0-8.0) Urine Specific [place] <=1.005 (1.000-1.030) Urine Protein Negative mg/dL (NEG-TRACE) Urine Glucose (UA) Negative mg/dL (NEG) Urine Ketones (Stick) Negative mg/dL (NEG) Urine Blood Trace (NEG) Urine Nitrite Negative (NEG) Urine Bilirubin Negative (NEG) Urine Urobilinogen Dipstick 0.2 mg/dL (0.2 mg/dL) Urine Leukocyte Esterase Negative (NEG) Urine RBC 3-5 /HPF (0-2) Urine WBC 0 /HPF (0-4) Urine Bacteria 0 /HPF (0-FEW) Sodium Level 138 mmol/L (136-145) Potassium Level 3.7 mmol/L (3.5-5.1) Chloride Level 95 mmol/L (98-107) Carbon Dioxide Level 38 mmol/L (21-32) Anion Gap 5 (6-14) Blood Urea Nitrogen 23 mg/dL (7-20) Creatinine 1.1 mg/dL (0.6-1.0) Estimated GFR (Cockcroft-Gault) 46.9 Glucose Level 106 mg/dL (70-99) Calcium Level 7.1 mg/dL (8.5-10.1) Microbiology 05/17/21 Blood Culture - Preliminary, Resulted NO GROWTH AFTER 2 DAYS Medications Current Medications Aspirin (Aspirin Chewable) 81 mg DAILY PO Last administered on 05/19/21at 08:42; Start 05/18/21 at 09:00 Furosemide (Lasix) 40 mg DAILY PO Last administered on 05/19/21at 08:41; Start 05/18/21 at 09:00 Lisinopril (Prinivil) 5 mg DAILY PO Last administered on 05/19/21at 08:42; Start 05/18/21 at 09:00; Stop 05/19/21 at 15:23; Status DC Metoprolol Tartrate (Lopressor) 12.5 mg BID PO Last administered on 05/18/21at 20:24; Start 05/18/21 at 09:00; Stop 05/18/21 at 22:00; Status DC Hydralazine HCl (Apresoline Inj) 10 mg PRN Q4HRS PRN IVP ELEVATED BP, SEE COMMENTS Last administered on 05/18/21at 00:00; Start 05/17/21 at 22:15 Potassium Chloride (Klor-Con) 20 meq DAILYWBKFT PO Last administered on 05/19/21at 08:41; Start 05/19/21 at 08:00 Potassium Chloride (Klor-Con) 20 meq 1X ONCE PO Last administered on 05/18/21at 09:27; Start 05/18/21 at 09:30; Stop 05/18/21 at 09:31; Status DC Dexamethasone Sodium Phosphate (Decadron) 6 mg DAILY IVP Last administered on 05/19/21at 08:43; Start 05/18/21 at 12:00 Pantoprazole Sodium (Protonix) 40 mg DAILYAC PO Last administered on 05/19/21at 08:42; Start 05/18/21 at 16:30 Aspirin (Ecotrin) 81 mg DAILYWBKFT PO ; Start 05/19/21 at 08:00 Atorvastatin Calcium (Lipitor) 20 mg QHS PO Last administered on 05/19/21at 21:00; Start 05/18/21 at 21:00 Metoprolol Succinate (Toprol Xl) 25 mg DAILY PO Last administered on 05/19/21at 08:41; Start 05/19/21 at 09:00 Lisinopril (Prinivil) 20 mg DAILY PO ; Start 05/20/21 at 09:00 Lisinopril (Prinivil) 10 mg 1X ONCE PO Last administered on 05/19/21at 16:26; Start 05/19/21 at 15:30; Stop 05/19/21 at 15:31; Status DC Potassium Chloride (Klor-Con) 20 meq 1X ONCE PO Last administered on 05/19/21at 16:26; Start 05/19/21 at 15:30; Stop 05/19/21 at 15:31; Status DC Active Scripts Active Metoprolol Tartrate 25 Mg Tablet 12.5 Mg PO BID Lisinopril 5 Mg Tablet 5 Mg PO DAILY Levofloxacin 750 Mg Tablet 1 Tab PO DAILY Aspirin 81 Mg Tab.chew 1 Tab PO DAILY Vitals/I & O Vital Sign - Last 24 Hours 05/19/21 05/19/21 05/19/21 05/19/21 08:00 08:41 08:42 10:34 Temp 98.0 98.0 Pulse 64 64 64 Resp 20 B/P (MAP) 154/78 154/78 168/81 (110) Pulse Ox 93 O2 Delivery Nasal Cannula Nasal Cannula O2 Flow Rate 6.0 5.0 05/19/21 05/19/21 05/19/21 05/19/21 15:00 16:26 18:32 20:00 Temp 97.8 98.5 97.8 98.5 Pulse 63 63 66 Resp 18 20 B/P (MAP) 155/74 (101) 155/74 154/79 (104) Pulse Ox 91 93 O2 Delivery Nasal Cannula Nasal Cannula Nasal Cannula O2 Flow Rate 5.0 5.0 6.0 05/19/21 05/20/21 22:06 03:58 Temp 99.7 99.7 Pulse 71 75 Resp 22 20 B/P (MAP) 147/83 (104) 167/78 (107) Pulse Ox 94 91 O2 Delivery Nasal Cannula Nasal Cannula O2 Flow Rate 6.0 6.0 Intake and Output 05/19/21 05/19/21 05/20/21 15:00 23:00 07:00 Intake Total 220 ml 360 ml 0 ml Output Total 850 ml Balance 220 ml -490 ml 0 ml Justicifation of Admission Dx: Justifications for Admission: Justification of Admission Dx: Yes Sepsis: Hypoxemia BLAIR GONZALEZ MD May 20, 2021 07:34
[2021-05-20] MEDS: ASPIRIN ENTERIC COATED 81 MG TABLET.DR. PO SCH (08:00)
[2021-05-20] MEDS: ASPIRIN CHEWABLE 81 MG TABLET. PO SCH (08:43)
[2021-05-20] MEDS: FUROSEMIDE 40 MG TABLET. PO SCH (08:43)
[2021-05-20] MEDS: PANTOPRAZOLE 40 MG TABLET.DR. PO SCH (08:43)
[2021-05-20] MEDS: POTASSIUM CHLORIDE 20 MEQ TABLET.ER. PO SCH (08:44)
[2021-05-20] MEDS: LISINOPRIL 20 MG TABLET PO SCH (08:44)
[2021-05-20] MEDS: METOPROLOL SUCC 24HR ER 25 MG TAB.ER.24H. PO SCH (08:44)
[2021-05-20] MEDS: DEXAMETHASONE SOD PHOS 4 MG/ML VIAL IVP SCH (08:45)
--- NOTE | 2021-05-20 09:43 | PDOC ---
Date of Service: DATE: 05/20/21 TIME: 09:40 Objective: Objective: D/w nurse - no GI concerns, no bleeding. Vital Signs: Vital Signs Date Time Temp Pulse Resp B/P (MAP) Pulse Ox O2 Delivery O2 Flow Rate FiO2 05/20/21 08:44 75 167/78 05/20/21 07:52 Nasal Cannula 6.0 05/20/21 07:00 20 96 05/19/21 22:06 99.7 99.7 Labs: Laboratory Tests Test 05/19/21 14:06 05/20/21 04:15 Urine Collection Type Unknown Urine Color Yellow Urine Clarity Clear Urine pH 6.5 Urine Specific [place] <=1.005 Urine Protein Negative mg/dL Urine Glucose (UA) Negative mg/dL Urine Ketones (Stick) Negative mg/dL Urine Blood Trace Urine Nitrite Negative Urine Bilirubin Negative Urine Urobilinogen Dipstick 0.2 mg/dL Urine Leukocyte Esterase Negative Urine RBC 3-5 /HPF Urine WBC 0 /HPF Urine Bacteria 0 /HPF Sodium Level 138 mmol/L Potassium Level 3.7 mmol/L Chloride Level 95 mmol/L Carbon Dioxide Level 38 mmol/L Anion Gap 5 Blood Urea Nitrogen 23 mg/dL Creatinine 1.1 mg/dL Estimated GFR (Cockcroft-Gault) 46.9 Glucose Level 106 mg/dL Calcium Level 7.1 mg/dL BLOOD CULTURE Preliminary NO GROWTH AFTER 2 DAYS PE: GEN: in COVID isolation; exam deferred A/P: COVID pneumonia, CHF Hematochezia - reported prior to admission, Hgb normal Benign liver lesions -- Stable GI-santoyo. Justicifation of Admission Dx: Justifications for Admission: Justification of Admission Dx: Yes Sepsis: Hypoxemia DANIELITO SANCHEZ May 20, 2021 09:43
[2021-05-20 11:00] VITALS: BP 161/77
--- NOTE | 2021-05-20 11:10 | PDOC ---
DATE OF SERVICE DATE: 05/20/21 TIME: 11:09 SUBJECTIVE ROS stable , On 6 Lts o2 by TX OBJECTIVE Vital Signs Vital Signs Date Time Temp Pulse Resp B/P (MAP) Pulse Ox O2 Delivery O2 Flow Rate FiO2 05/20/21 08:44 75 167/78 05/20/21 07:52 Nasal Cannula 6.0 05/20/21 07:00 20 96 05/19/21 22:06 99.7 99.7 I & 0 Intake and Output 05/20/21 06:59 Intake Total 580 ml Output Total 850 ml Balance -270 ml Intake Oral 580 ml Output Urine Total 850 ml # Voids 4 PHYSICAL EXAM Physical Exam General NAD HEEN on o2 by TX, OM moist Neck supple Lungs decreased at bases CV S1S2 Abd soft , NT, BS + No clark, No cva or sp tenderness Neuro Confused, AMS Derm Rash DIAGNOSIS/ASSESSMENT Assessment & Plan DEMETRI - Vasomotor / UA . supportive care , Improved renal function, stable . UOP? accuracy. Supportive care, maintain Hydration Avoid nephrotoxins, S trict I/O . Monitor CT scan No hydronephrosis Renal Cyst - Right renal lower pole 2 cm cyst density 10 units. Ac Hypoxic Resp failure .Currently on O2 6 lts by TX CoVid 19 Pneumonia HypoAlbuminemia- Alb 1.8 HTN- On Furosmide and Lisinopril COMMENT/RELEVANT DATA Meds Current Medications Medications (Trade) Dose Ordered Sig/Brice Start Time Stop Time Status Last Admin Dose Admin Aspirin (Aspirin Chewable) 81 mg DAILY 05/18/21 09:00 05/20/21 08:59 DC 05/20/21 08:43 81 MG Aspirin (Ecotrin) 81 mg [id number] 05/19/21 08:00 Atorvastatin Calcium (Lipitor) 20 mg QHS 05/18/21 21:00 05/19/21 21:00 20 MG Dexamethasone Sodium Phosphate (Decadron) 6 mg DAILY 05/18/21 12:00 05/20/21 08:45 6 MG Furosemide (Lasix) 40 mg DAILY 05/18/21 09:00 05/20/21 08:43 40 MG Hydralazine HCl (Apresoline Inj) 10 mg PRN Q4HRS PRN 05/17/21 22:15 05/18/21 00:00 10 MG Lisinopril (Prinivil) 10 mg 1X ONCE 05/19/21 15:30 05/19/21 15:31 DC 05/19/21 16:26 10 MG Metoprolol Succinate (Toprol Xl) 25 mg DAILY 05/19/21 09:00 05/20/21 08:44 25 MG Metoprolol Tartrate (Lopressor) 12.5 mg BID 05/18/21 09:00 05/18/21 22:00 DC 05/18/21 20:24 12.5 MG Pantoprazole Sodium (Protonix) 40 mg DAILYAC 05/18/21 16:30 05/20/21 08:43 40 MG Potassium Chloride (Klor-Con) 20 meq 1X ONCE 05/19/21 15:30 05/19/21 15:31 DC 05/19/21 16:26 20 MEQ Lab Laboratory Tests Test 05/19/21 14:06 05/20/21 04:15 Urine Collection Type Unknown Urine Color Yellow Urine Clarity Clear Urine pH 6.5 (<5.0-8.0) Urine Specific [place] <=1.005 (1.000-1.030) Urine Protein Negative mg/dL (NEG-TRACE) Urine Glucose (UA) Negative mg/dL (NEG) Urine Ketones (Stick) Negative mg/dL (NEG) Urine Blood Trace (NEG) Urine Nitrite Negative (NEG) Urine Bilirubin Negative (NEG) Urine Urobilinogen Dipstick 0.2 mg/dL (0.2 mg/dL) Urine Leukocyte Esterase Negative (NEG) Urine RBC 3-5 /HPF (0-2) Urine WBC 0 /HPF (0-4) Urine Bacteria 0 /HPF (0-FEW) Sodium Level 138 mmol/L (136-145) Potassium Level 3.7 mmol/L (3.5-5.1) Chloride Level 95 mmol/L (98-107) Carbon Dioxide Level 38 mmol/L (21-32) Anion Gap 5 (6-14) Blood Urea Nitrogen 23 mg/dL (7-20) Creatinine 1.1 mg/dL (0.6-1.0) Estimated GFR (Cockcroft-Gault) 46.9 Glucose Level 106 mg/dL (70-99) Calcium Level 7.1 mg/dL (8.5-10.1) Results All relevant outside records, renal labs, imaging studies, telemetry/EKG's were reviewed. Justicifation of Admission Dx: Justifications for Admission: Justification of Admission Dx: Yes Sepsis: Hypoxemia KEE STRONG MD May 20, 2021 11:10
[2021-05-20 11:39] LABS: BASE EXCESS COOX 15 mmol/L (-3-3); HCO3 COOX 42 mmol/L (21-28); METHEMOGLOBIN 0.3 % (0.0-1.9); OXYHEMOGLOBIN 89.7 %; PCO2 COOX 58 mmHg (35-46); PO2 COOX 55 mmHg (65-108); SAT O2 COOX 90 % (92-99)
--- NOTE | 2021-05-20 11:51 | PDOC ---
PULMONARY PROGRESS NOTES DATE: 05/20/21 TIME: 11:49 Subjective Patient is sleepy. Remains on 6 L nasal cannula Vitals Vital Signs Date Time Temp Pulse Resp B/P (MAP) Pulse Ox O2 Delivery O2 Flow Rate FiO2 05/20/21 11:00 97.9 61 22 161/77 (105) 92 Nasal Cannula 6.0 97.9 Lungs: Crackles Cardiovascular: S1, S2 Abdomen: Soft, Non-tender, Other Extremities: No Edema Labs Laboratory Tests Test 05/18/21 19:42 05/19/21 06:45 05/19/21 09:20 05/19/21 14:06 Magnesium Level 1.7 mg/dL (1.8-2.4) 1.8 mg/dL (1.8-2.4) Troponin I Quantitative 0.239 ng/mL (0.000-0.055) 0.201 ng/mL (0.000-0.055) Sodium Level 137 mmol/L (136-145) Potassium Level 3.1 mmol/L (3.5-5.1) Chloride Level 93 mmol/L (98-107) Carbon Dioxide Level 37 mmol/L (21-32) Anion Gap 7 (6-14) Blood Urea Nitrogen 23 mg/dL (7-20) Creatinine 1.1 mg/dL (0.6-1.0) Estimated GFR (Cockcroft-Gault) 46.9 Glucose Level 115 mg/dL (70-99) Calcium Level 6.7 mg/dL (8.5-10.1) Phosphorus Level 3.1 mg/dL (2.6-4.7) Albumin 2.0 g/dL (3.4-5.0) Triglycerides Level 187 mg/dL (0-150) Cholesterol Level 149 mg/dL (0-200) LDL Cholesterol, Calculated 74 mg/dL (0-100) VLDL Cholesterol, Calculated 37 mg/dL (0-40) Non-HDL Cholesterol Calculated 111 mg/dL (0-129) HDL Cholesterol 38 mg/dL (40-60) Cholesterol/HDL Ratio 3.9 White Blood Count 10.7 x10^3/uL (4.0-11.0) Red Blood Count 4.57 x10^6/uL (3.50-5.40) Hemoglobin 14.4 g/dL (12.0-15.5) Hematocrit 44.1 % (36.0-47.0) Mean Corpuscular Volume 97 fL (79-100) Mean Corpuscular Hemoglobin 32 pg (25-35) Mean Corpuscular Hemoglobin Concent 33 g/dL (31-37) Red Cell Distribution Width 16.1 % (11.5-14.5) Platelet Count 176 x10^3/uL (140-400) Neutrophils (%) (Auto) 92 % (31-73) Lymphocytes (%) (Auto) 5 % (24-48) Monocytes (%) (Auto) 3 % (0-9) Eosinophils (%) (Auto) 0 % (0-3) Basophils (%) (Auto) 0 % (0-3) Neutrophils # (Auto) 9.9 x10^3/uL (1.8-7.7) Lymphocytes # (Auto) 0.5 x10^3/uL (1.0-4.8) Monocytes # (Auto) 0.3 x10^3/uL (0.0-1.1) Eosinophils # (Auto) 0.0 x10^3/uL (0.0-0.7) Basophils # (Auto) 0.0 x10^3/uL (0.0-0.2) Urine Collection Type Unknown Urine Color Yellow Urine Clarity Clear Urine pH 6.5 (<5.0-8.0) Urine Specific [place] <=1.005 (1.000-1.030) Urine Protein Negative mg/dL (NEG-TRACE) Urine Glucose (UA) Negative mg/dL (NEG) Urine Ketones (Stick) Negative mg/dL (NEG) Urine Blood Trace (NEG) Urine Nitrite Negative (NEG) Urine Bilirubin Negative (NEG) Urine Urobilinogen Dipstick 0.2 mg/dL (0.2 mg/dL) Urine Leukocyte Esterase Negative (NEG) Urine RBC 3-5 /HPF (0-2) Urine WBC 0 /HPF (0-4) Urine Bacteria 0 /HPF (0-FEW) Test 05/20/21 04:15 05/20/21 11:35 Sodium Level 138 mmol/L (136-145) Potassium Level 3.7 mmol/L (3.5-5.1) Chloride Level 95 mmol/L (98-107) Carbon Dioxide Level 38 mmol/L (21-32) Anion Gap 5 (6-14) Blood Urea Nitrogen 23 mg/dL (7-20) Creatinine 1.1 mg/dL (0.6-1.0) Estimated GFR (Cockcroft-Gault) 46.9 Glucose Level 106 mg/dL (70-99) Calcium Level 7.1 mg/dL (8.5-10.1) O2 Saturation 90 % (92-99) Arterial Blood pH 7.48 (7.35-7.45) Arterial Blood pCO2 at Patient Temp 58 mmHg (35-46) Arterial Blood pO2 at Patient Temp 55 mmHg (65-108) Arterial Blood HCO3 42 mmol/L (21-28) Arterial Blood Base Excess 15 mmol/L (-3-3) Oxyhemoglobin 89.7 % Methemoglobin 0.3 % (0.0-1.9) Carbon Monoxide, Quantitative 0.3 % (0.0-1.9) FiO2 44 Laboratory Tests Test 05/19/21 14:06 05/20/21 04:15 05/20/21 11:35 Urine Collection Type Unknown Urine Color Yellow Urine Clarity Clear Urine pH 6.5 (<5.0-8.0) Urine Specific [place] <=1.005 (1.000-1.030) Urine Protein Negative mg/dL (NEG-TRACE) Urine Glucose (UA) Negative mg/dL (NEG) Urine Ketones (Stick) Negative mg/dL (NEG) Urine Blood Trace (NEG) Urine Nitrite Negative (NEG) Urine Bilirubin Negative (NEG) Urine Urobilinogen Dipstick 0.2 mg/dL (0.2 mg/dL) Urine Leukocyte Esterase Negative (NEG) Urine RBC 3-5 /HPF (0-2) Urine WBC 0 /HPF (0-4) Urine Bacteria 0 /HPF (0-FEW) Sodium Level 138 mmol/L (136-145) Potassium Level 3.7 mmol/L (3.5-5.1) Chloride Level 95 mmol/L (98-107) Carbon Dioxide Level 38 mmol/L (21-32) Anion Gap 5 (6-14) Blood Urea Nitrogen 23 mg/dL (7-20) Creatinine 1.1 mg/dL (0.6-1.0) Estimated GFR (Cockcroft-Gault) 46.9 Glucose Level 106 mg/dL (70-99) Calcium Level 7.1 mg/dL (8.5-10.1) O2 Saturation 90 % (92-99) Arterial Blood pH 7.48 (7.35-7.45) Arterial Blood pCO2 at Patient Temp 58 mmHg (35-46) Arterial Blood pO2 at Patient Temp 55 mmHg (65-108) Arterial Blood HCO3 42 mmol/L (21-28) Arterial Blood Base Excess 15 mmol/L (-3-3) Oxyhemoglobin 89.7 % Methemoglobin 0.3 % (0.0-1.9) Carbon Monoxide, Quantitative 0.3 % (0.0-1.9) FiO2 44 Medications Active Scripts Medications Dose Route/Sig Max Daily Dose Days Date Category Metoprolol Tartrate 25 Mg Tablet 12.5 Mg PO BID 11/17/16 Rx Lisinopril 5 Mg Tablet 5 Mg PO DAILY 11/17/16 Rx Levofloxacin 750 Mg Tablet 1 Tab PO DAILY 08/29/16 Rx Aspirin 81 Mg Tab.chew 1 Tab PO DAILY 08/29/16 Rx Impression . 1. Acute hypoxic respiratory failure secondary to COVID-19 pneumonia. 2. Abnormal chest x-ray with bilateral perihilar infiltrates, most suggestive of COVID-19 viral pneumonia. Repeat chest x-ray 05/20, no significant change 3. Increased hemoglobin and hematocrit, likely secondary to dehydration. 4. Abnormal troponin level. Plan . RECOMMENDATIONS: 1. Continue present oxygen, keep saturations 92% and above. 2. dexamethasone. 3. Would avoid further diuresis. 4. Improving hematocrit 5. Would recommend discussion of advanced directives. YVETTE JUSTICE MD May 20, 2021 11:51
--- NOTE | 2021-05-20 14:00 | RAD ---
XR CHEST 1V CLINICAL INDICATIONS: Reason: pneumonia / Spl. Instructions: / History: COMPARISON: May 17, 2021. Findings: Bilateral lung infiltrates are unchanged. No pneumothorax is seen. Small bilateral pleural effusions are unchanged. Cardiomegaly is again evident and is unchanged. The mediastinum is unchanged . IMPRESSION: Unchanged bilateral lung infiltrates and pleural effusions. Cardiomegaly. Electronically signed by: Clemente Livingston MD (05/20/2021 1:58 PM) [id number]
[2021-05-20 15:00] VITALS: BP 174/90
[2021-05-20] MEDS: ATORVASTATIN CALCIUM 20 MG TABLET PO SCH (19:56)
[2021-05-20 19:57] VITALS: BP 166/91
[2021-05-20 22:40] VITALS: BP 164/94
[2021-05-21 02:30] VITALS: BP 135/75
[2021-05-21 07:15] VITALS: BP 135/68
--- NOTE | 2021-05-21 08:11 | PDOC ---
PULMONARY PROGRESS NOTES DATE: 05/21/21 TIME: 08:09 Subjective Patient is appears comfortable Remains on 10 L nasal cannula Vitals Vital Signs Date Time Temp Pulse Resp B/P (MAP) Pulse Ox O2 Delivery O2 Flow Rate FiO2 05/21/21 07:15 97.8 77 18 135/68 (90) 95 Nasal Cannula 10.0 97.8 Comments no distress nc at no accessory muscle use rrr no edema Cardiovascular: S1, S2 Abdomen: Other Extremities: No Edema Skin: No Rashes Labs Laboratory Tests Test 05/19/21 09:20 05/19/21 14:06 05/20/21 04:15 05/20/21 11:20 White Blood Count 10.7 x10^3/uL (4.0-11.0) Red Blood Count 4.57 x10^6/uL (3.50-5.40) Hemoglobin 14.4 g/dL (12.0-15.5) Hematocrit 44.1 % (36.0-47.0) Mean Corpuscular Volume 97 fL (79-100) Mean Corpuscular Hemoglobin 32 pg (25-35) Mean Corpuscular Hemoglobin Concent 33 g/dL (31-37) Red Cell Distribution Width 16.1 % (11.5-14.5) Platelet Count 176 x10^3/uL (140-400) Neutrophils (%) (Auto) 92 % (31-73) Lymphocytes (%) (Auto) 5 % (24-48) Monocytes (%) (Auto) 3 % (0-9) Eosinophils (%) (Auto) 0 % (0-3) Basophils (%) (Auto) 0 % (0-3) Neutrophils # (Auto) 9.9 x10^3/uL (1.8-7.7) Lymphocytes # (Auto) 0.5 x10^3/uL (1.0-4.8) Monocytes # (Auto) 0.3 x10^3/uL (0.0-1.1) Eosinophils # (Auto) 0.0 x10^3/uL (0.0-0.7) Basophils # (Auto) 0.0 x10^3/uL (0.0-0.2) Urine Collection Type Unknown Urine Color Yellow Urine Clarity Clear Urine pH 6.5 (<5.0-8.0) Urine Specific [place] <=1.005 (1.000-1.030) Urine Protein Negative mg/dL (NEG-TRACE) Urine Glucose (UA) Negative mg/dL (NEG) Urine Ketones (Stick) Negative mg/dL (NEG) Urine Blood Trace (NEG) Urine Nitrite Negative (NEG) Urine Bilirubin Negative (NEG) Urine Urobilinogen Dipstick 0.2 mg/dL (0.2 mg/dL) Urine Leukocyte Esterase Negative (NEG) Urine RBC 3-5 /HPF (0-2) Urine WBC 0 /HPF (0-4) Urine Bacteria 0 /HPF (0-FEW) Sodium Level 138 mmol/L (136-145) Potassium Level 3.7 mmol/L (3.5-5.1) Chloride Level 95 mmol/L (98-107) Carbon Dioxide Level 38 mmol/L (21-32) Anion Gap 5 (6-14) Blood Urea Nitrogen 23 mg/dL (7-20) Creatinine 1.1 mg/dL (0.6-1.0) Estimated GFR (Cockcroft-Gault) 46.9 Glucose Level 106 mg/dL (70-99) Calcium Level 7.1 mg/dL (8.5-10.1) Ionized Calcium 0.94 mmol/L (1.13-1.32) Test 05/20/21 11:35 O2 Saturation 90 % (92-99) Arterial Blood pH 7.48 (7.35-7.45) Arterial Blood pCO2 at Patient Temp 58 mmHg (35-46) Arterial Blood pO2 at Patient Temp 55 mmHg (65-108) Arterial Blood HCO3 42 mmol/L (21-28) Arterial Blood Base Excess 15 mmol/L (-3-3) Oxyhemoglobin 89.7 % Methemoglobin 0.3 % (0.0-1.9) Carbon Monoxide, Quantitative 0.3 % (0.0-1.9) FiO2 44 Laboratory Tests Test 05/20/21 11:20 05/20/21 11:35 Ionized Calcium 0.94 mmol/L (1.13-1.32) O2 Saturation 90 % (92-99) Arterial Blood pH 7.48 (7.35-7.45) Arterial Blood pCO2 at Patient Temp 58 mmHg (35-46) Arterial Blood pO2 at Patient Temp 55 mmHg (65-108) Arterial Blood HCO3 42 mmol/L (21-28) Arterial Blood Base Excess 15 mmol/L (-3-3) Oxyhemoglobin 89.7 % Methemoglobin 0.3 % (0.0-1.9) Carbon Monoxide, Quantitative 0.3 % (0.0-1.9) FiO2 44 Medications Active Scripts Medications Dose Route/Sig Max Daily Dose Days Date Category Metoprolol Tartrate 25 Mg Tablet 12.5 Mg PO BID 11/17/16 Rx Lisinopril 5 Mg Tablet 5 Mg PO DAILY 11/17/16 Rx Levofloxacin 750 Mg Tablet 1 Tab PO DAILY 08/29/16 Rx Aspirin 81 Mg Tab.chew 1 Tab PO DAILY 08/29/16 Rx Impression . 1. Acute hypoxic respiratory failure secondary to COVID-19 pneumonia. 2. Abnormal chest x-ray with bilateral perihilar infiltrates, most suggestive of COVID-19 viral pneumonia. Repeat chest x-ray 05/20, no significant change 3. Increased hemoglobin and hematocrit, likely secondary to dehydration. 4. Abnormal troponin level. Plan . RECOMMENDATIONS: 1. Continue present oxygen, keep saturations 90% and above. 2. dexamethasone. 3. Would avoid further diuresis. 4. Improving hematocrit 5. Would recommend to address code status per primary discussed w MAINOR Dumont MD May 21, 2021 08:11
[2021-05-21] MEDS: LISINOPRIL 20 MG TABLET PO SCH (08:14)
[2021-05-21] MEDS: FUROSEMIDE 40 MG TABLET. PO SCH (08:14)
[2021-05-21] MEDS: DEXAMETHASONE SOD PHOS 4 MG/ML VIAL IVP SCH (08:14)
[2021-05-21] MEDS: POTASSIUM CHLORIDE 20 MEQ TABLET.ER. PO SCH (08:14)
[2021-05-21] MEDS: METOPROLOL SUCC 24HR ER 25 MG TAB.ER.24H. PO SCH (08:15)
[2021-05-21] MEDS: ASPIRIN ENTERIC COATED 81 MG TABLET.DR. PO SCH (08:15)
[2021-05-21] MEDS: PANTOPRAZOLE 40 MG TABLET.DR. PO SCH (08:15)
[2021-05-21 09:35] LABS: BASO % 0 % (0-3); EOS % 0 % (0-3); HEMATOCRIT 46.3 % (36.0-47.0); HEMOGLOBIN 15.2 g/dL (12.0-15.5); LYMPH # 0.4 x10^3/uL (1.0-4.8); LYMPH % 3 % (24-48); MEAN CORPUSCULAR HEMOGLOBIN 32 pg (25-35); MEAN CORPUSCULAR HGB CONC 33 g/dL (31-37); MEAN CORPUSCULAR VOLUME 96 fL (79-100); MONO # 0.4 x10^3/uL (0.0-1.1); MONO % 3 % (0-9); NEUT # 11.9 x10^3/uL (1.8-7.7); NEUT % 94 % (31-73); PLATELET COUNT 193 x10^3/uL (140-400); RED BLOOD COUNT 4.81 x10^6/uL (3.50-5.40); RED CELL DISTRIBUTION WIDTH 15.8 % (11.5-14.5); WHITE BLOOD COUNT 12.6 x10^3/uL (4.0-11.0)
--- NOTE | 2021-05-21 09:59 | PDOC ---
PROGRESS NOTES Date of Service: DATE: 05/21/21 TIME: 09:56 Chief Complaint Chief Complaint VTE Prophylaxis Ordered VTE Prophylaxis Devices: No VTE Pharmacological Prophylaxi: Yes Assessment/Plan Assessment/Plan Impression: COVID-19 pneumonia Severe protein-caloric malnutrition , underweight Hypoxia/ IE ACUTE Hypoxic respiratory failure, hypercapnic NSTEMI DEMETRI (acute kidney injury) hypokalemia, on replacement rx Left ventricle systolic function is severely impaired. The Ejection Fraction is 20-25%./ ECHO 2017 ACUTE METABOLIC ENCEPHALOPATHY Edema surrounding the terminal ileum suggestive of distal ileitis. No bowel obstruction. Appendix is negative. Rectosigmoid diverticulosis without evidence of diverticulitis. Mild/moderate pleural effusions and dependent lower lobe groundglass densities and interstitial reticulation which may represent pulmonary edema Several low-density lesions are noted within visualized portions of liver. Metastatic disease cannot be excluded. CT 2017 Mild troponin elevation; most probably type II, demand ischemia in setting of above. Acute on chronic systolic CHF, cardiomyopathy; Echo 2017 with LVEF 20-25%. 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 Per EMS patient's family is positive for Covid Rectosigmoid diverticulosis ON RECENT CT / confused (AMS) and its not her baseline / only oriented to self RECENT ECHO IN 2017 / Left ventricle systolic function is severely impaired. The Ejection Fraction is 20-25%./ ECHO 2017 COVID POS IN ER WITH ACUTE METABOLIC ENCEPHALOPATHY / Hematochezia. Blood in stool. STARTED ON IV DEXAMETHASONE 6 MG IV TROPONIN I 0.631 IN er Several low-density lesions are noted within visualized portions of liver. / Metastatic disease cannot be excluded. [address] abd Edema surrounding the terminal ileum suggestive of distal ileitis. No bowel obstruction. Appendix is negative. / Rectosigmoid diverticulosis without evidence of diverticulitis. Mild/moderate pleural effusions and dependent lower lobe groundglass densities and interstitial reticulation which may represent pulmonary edema PLAN == ADMIT // consult pulm med / consult cardiology / o2 support / consult nephrology /dvt prophylaxis / hold nephrotoxic meds Past Medical History Past Medical History Past Medical History Past Medical History Past Medical History: Hypertension Additional Past Medical Histor: BLEEDING ULCERS Past Surgical History: No Surgical History Smoking Status: Never Smoker Alcohol Use: None Drug Use: None Cardiovascular: HTN, Hyperlipidemia Pulmonary: COPD CENTRAL NERVOUS SYSTEM: Dementia Musculoskeletal: Osteoarthritis, Weakness Past Surgical History Past Surgical History: No pertinent history Family History Family History: High Cholestrol, Hypertension Social History Smoke: No ALCOHOL: none Drugs: None Current Problem List Problem List Problems Medical Problems: (1) DEMETRI (acute kidney injury) Status: Acute (2) COVID-19 Status: Acute (3) Hypoxia Status: Acute (4) NSTEMI (non-ST elevated myocardial infarction) Status: Acute (5) Person under investigation for COVID-19 Status: Acute Current Medications Current Medications Current Medications Aspirin (Aspirin Chewable) 81 mg DAILY PO Last administered on 05/18/21at 08:12; Start 05/18/21 at 09:00 Furosemide (Lasix) 40 mg DAILY PO Last administered on 05/18/21at 08:12; Start 05/18/21 at 09:00 Lisinopril (Prinivil) 5 mg DAILY PO Last administered on 05/18/21at 08:11; Start 05/18/21 at 09:00 Metoprolol Tartrate (Lopressor) 12.5 mg BID PO Last administered on 05/18/21at 08:12; Start 05/18/21 at 09:00 Hydralazine HCl (Apresoline Inj) 10 mg PRN Q4HRS PRN IVP ELEVATED BP, SEE COMMENTS Last administered on 05/18/21at 00:00; Start 05/17/21 at 22:15 Active Scripts Active Metoprolol Tartrate 25 Mg Tablet 12.5 Mg PO BID Lisinopril 5 Mg Tablet 5 Mg PO DAILY Lasix (Furosemide) 40 Mg Tablet 1 Tab PO DAILY Levofloxacin 750 Mg Tablet 1 Tab PO DAILY Aspirin 81 Mg Tab.chew 1 Tab PO DAILY Allergies Allergies: Coded Allergies: Penicillins (Verified Allergy, Intermediate, 11/15/16) Sulfa (Sulfonamide Antibiotics) (Verified Allergy, Intermediate, 11/15/16) ROS Review of System 14 pt ros otherwise neg General: YES: Fatigue; No: Chills, Night Sweats, Malaise, Appetite, Other PSYCHOLOGICAL ROS: YES: Concentration difficultie, Disorientation, Memory difficulties; No: Anxiety, Behavioral Disorder, Decreased libido, Depression, Hallucinations, Hostility, Irritablity, Mood Swings, Obsessive thoughts, Physical abuse, Sexual abuse, Sleep disturbances, Suicidal ideation, Other Eyes: No Blurry vision, No Decreased vision, No Double vision, No Dry eyes, No Excessive tearing, No Eye Pain, No Itchy Eyes, No Loss of vision, No Photophobia, No Scotomata, No Uses contacts, No Uses glasses, No Other HEENT: No: Heacaches, Visual Changes, Hearing change, Nasal congestion, Nasal discharge, Oral lesions, Sinus pain, Sore Throat, Epistaxis, Sneezing, Snoring, Tinnitus, Vertigo, Vocal changes, Other ALLERGY AND IMMUNOLOGY: YES: Hives; No: Insect Bite Sensitivity, Itchy/Watery Eyes, Nasal Congestion, Post Nasal Drip, Seasonal Allergies, Other Hematological and Lymphatic: YES: Bleeding Problems; No: Blood Clots, Blood Transfusions, Brusing, Night Sweats, Pallor, Swollen Lymph Nodes, Other ENDOCRINE: No: Breast Changes, Galactorrhea, Hair Pattern Changes, Hot Flashes, Malaise/lethargy, Mood Swings, Palpitations, Polydipsia/polyuria, Skin Changes, Temperature Intolerance, Unexpected Weight Changes, Other Breast: No New/Changing Breast Lumps, No Nipple changes, No Nipple discharge, No Other Respiratory: YES: Shortness of breath, SOB with excertion Cardiovascular: No Chest Pain, No Palpitations, No Orthopnea, No Paroxysmal Noc. Dyspnea, No Edema, No Lt Headedness, No Other Gastrointestinal: No Nausea, No Vomiting, No Abdominal Pain, No Diarrhea, No Constipation, No Melena, No Hematochezia, No Other Genitourinary: No Dysuria, No Frequency, No Incontinence, No Hematuria, No Retention, No Discharge, No Urgency, No Pain, No Flank Pain, No Other, No , No , No , No , No , No , No Musculoskeletal: Yes Joint Stiffness; No Gait Disturbance, No Joint Pain, No Joint Swelling, No Muscle Pain, No Muscular Weakness, No Pain In:, No Swelling In:, No Other Neurological: Yes Confusion; No Behavorial Changes, No Bowel/Bladder ControlChng, No Dizziness, No Gait Disturbance, No Headaches, No Impaired Coord/balance, No Memory Loss, No Numbness/Tingling, No Seizures, No Speech Problems, No Tremors, No Visual Changes, No Weakness, No Other Skin: Yes Dry Skin; No Eczema, No Hair Changes, No Lumps, No Mole Changes, No Mottling, No Nail Changes, No Pruritus, No Rash, No Skin Lesion Changes, No Other, No Acne 9-16 COVID-19 pneumonia Severe protein-caloric malnutrition , underweight CBC not suggestive of iron deficiency not c/w with bowel-related cancer Hypoxia/ IE ACUTE Hypoxic respiratory failure Mild troponin elevation; most probably type II, demand ischemia in setting of above. Acute on chronic systolic CHF, cardiomyopathy; Echo 2017 with LVEF 20-25%. compensated NSTEMI DEMETRI (acute kidney injury) hypokalemia, on replacement rx Left ventricle systolic function is severely impaired. The Ejection Fraction is 20-25%./ ECHO 2017 ACUTE METABOLIC ENCEPHALOPATHY IMPROVING Edema surrounding the terminal ileum suggestive of distal ileitis. No bowel obstruction. Appendix is negative. Rectosigmoid diverticulosis without evidence of diverticulitis. Mild/moderate pleural effusions and dependent lower lobe groundglass densities and interstitial reticulation which may represent pulmonary edema Several low-density lesions are noted within visualized portions of liver. Metastatic disease cannot be excluded. CT 2017 consult pulm med consult cardiology o2 support consult nephrology dvt prophylaxis hold nephrotoxic meds Consult GI consider liver US /conservative management might be santoyo 38 MIN pt exam, chart review, > 50% of time spent with exam, chart review, pt care coordination 05-20 CXR 05-20 PENDING , ABG COVID-19 pneumonia Severe protein-caloric malnutrition , underweight CBC not suggestive of iron deficiency not c/w with bowel-related cancer Hypoxia/ IE ACUTE Hypoxic respiratory failure Mild troponin elevation; most probably type II, demand ischemia in setting of above. Acute on chronic systolic CHF, cardiomyopathy; Echo 2017 with LVEF 20-25%. compensated NSTEMI DEMETRI (acute kidney injury) hypokalemia, on replacement rx Left ventricle systolic function is severely impaired. The Ejection Fraction is 20-25%./ ECHO 2017 ACUTE METABOLIC ENCEPHALOPATHY IMPROVING Edema surrounding the terminal ileum suggestive of distal ileitis. No bowel obstruction. Appendix is negative. Rectosigmoid diverticulosis without evidence of diverticulitis. Mild/moderate pleural effusions and dependent lower lobe groundglass densities and interstitial reticulation which may represent pulmonary edema Several low-density lesions are noted within visualized portions of liver. Metastatic disease cannot be excluded. CT 2017 consult pulm med consult cardiology o2 support consult nephrology dvt prophylaxis hold nephrotoxic meds Consult GI consider liver US /conservative management is santoyo ferritin in AM 36 MIN pt exam, chart review, > 50% of time spent with exam, chart review, pt care coordination 05-21 Continue present oxygen, keep saturations 90% and above. REPEAT ABG CONT dexamethasone. avoid further diuresis. 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 Acute on chronic systolic CHF, cardiomyopathy; Echo 2017 with LVEF 20-25%. compensated NSTEMI DEMETRI (acute kidney injury) hypokalemia, on replacement rx Left ventricle systolic function is severely impaired. The Ejection Fraction is 20-25%./ ECHO 2017 ACUTE METABOLIC ENCEPHALOPATHY Edema surrounding the terminal ileum suggestive of distal ileitis. No bowel obstruction. Appendix is negative. Rectosigmoid diverticulosis without evidence of diverticulitis. Mild/moderate pleural effusions and dependent lower lobe groundglass densities and interstitial reticulation which may represent pulmonary edema Several low-density lesions are noted within visualized portions of liver. Metastatic disease cannot be excluded. CT 2017 consult pulm med consult cardiology o2 support consult nephrology dvt prophylaxis hold nephrotoxic meds Consult GI consider liver US /conservative management is santoyo ferritin POOR PROGNOSIS, FAMILY called no answer, encouraging conservative rx given age 31 MIN pt exam, chart review, > 50% of time spent with exam, chart review, pt care coordination Vitals Vitals Vital Signs Date Time Temp Pulse Resp B/P (MAP) Pulse Ox O2 Delivery O2 Flow Rate FiO2 05/21/21 08:15 77 135/68 05/21/21 08:00 Nasal Cannula 10.0 05/21/21 07:15 97.8 18 95 97.8 Physical Exam General: Alert, Oriented X3, Cooperative, No acute distress, Other (alert to person ) Heart: Regular rate (SR with LBBB), Normal S1 Abdomen: Normal bowel sounds, Soft, No tenderness Extremities: No clubbing, No cyanosis, No edema Skin: No rashes, No significant lesion Labs LABS PATIENT: DIGNA HYMAN AACCOUNT: [id number] : 1930 LOCATION: [facility] AGE: 89 SEX: F EXAM STATUS: ADM IN ORD. PHYSICIAN: BLAIR GONZALEZ MD REASON: pneumonia PROCEDURE: CHEST AP ONLY XR CHEST 1V CLINICAL INDICATIONS: Reason: pneumonia / Spl. Instructions: / History: COMPARISON: May 17, 2021. Findings: Bilateral lung infiltrates are unchanged. No pneumothorax is seen. Small bilateral pleural effusions are unchanged. Cardiomegaly is again evident and is unchanged. The mediastinum is unchanged. IMPRESSION: Unchanged bilateral lung infiltrates and pleural effusions. Cardiomegaly. Electronically signed by: Clemente Livingston MD (05/20/2021 1:58 PM) [id number] DICTATED and SIGNED BY: CLEMENTE LIVINGSTON Laboratory Tests Test 05/20/21 11:20 05/20/21 11:35 05/21/21 08:30 Ionized Calcium 0.94 mmol/L (1.13-1.32) O2 Saturation 90 % (92-99) Arterial Blood pH 7.48 (7.35-7.45) Arterial Blood pCO2 at Patient Temp 58 mmHg (35-46) Arterial Blood pO2 at Patient Temp 55 mmHg (65-108) Arterial Blood HCO3 42 mmol/L (21-28) Arterial Blood Base Excess 15 mmol/L (-3-3) Oxyhemoglobin 89.7 % Methemoglobin 0.3 % (0.0-1.9) Carbon Monoxide, Quantitative 0.3 % (0.0-1.9) FiO2 44 White Blood Count 12.6 x10^3/uL (4.0-11.0) Red Blood Count 4.81 x10^6/uL (3.50-5.40) Hemoglobin 15.2 g/dL (12.0-15.5) Hematocrit 46.3 % (36.0-47.0) Mean Corpuscular Volume 96 fL (79-100) Mean Corpuscular Hemoglobin 32 pg (25-35) Mean Corpuscular Hemoglobin Concent 33 g/dL (31-37) Red Cell Distribution Width 15.8 % (11.5-14.5) Platelet Count 193 x10^3/uL (140-400) Neutrophils (%) (Auto) 94 % (31-73) Lymphocytes (%) (Auto) 3 % (24-48) Monocytes (%) (Auto) 3 % (0-9) Eosinophils (%) (Auto) 0 % (0-3) Basophils (%) (Auto) 0 % (0-3) Neutrophils # (Auto) 11.9 x10^3/uL (1.8-7.7) Lymphocytes # (Auto) 0.4 x10^3/uL (1.0-4.8) Monocytes # (Auto) 0.4 x10^3/uL (0.0-1.1) Eosinophils # (Auto) 0.0 x10^3/uL (0.0-0.7) Basophils # (Auto) 0.0 x10^3/uL (0.0-0.2) Assessment and Plan Assessmemt and Plan Problems Medical Problems: (1) DEMETRI (acute kidney injury) Status: Acute (2) COVID-19 Status: Acute (3) Hypoxia Status: Acute (4) NSTEMI (non-ST elevated myocardial infarction) Status: Acute (5) Person under investigation for COVID-19 Status: Acute Comment Review of Relevant I have reviewed the following items brenton (where applicable) has been applied. Labs Laboratory Tests Test 05/19/21 14:06 05/20/21 04:15 05/20/21 11:20 05/20/21 11:35 Urine Collection Type Unknown Urine Color Yellow Urine Clarity Clear Urine pH 6.5 (<5.0-8.0) Urine Specific [place] <=1.005 (1.000-1.030) Urine Protein Negative mg/dL (NEG-TRACE) Urine Glucose (UA) Negative mg/dL (NEG) Urine Ketones (Stick) Negative mg/dL (NEG) Urine Blood Trace (NEG) Urine Nitrite Negative (NEG) Urine Bilirubin Negative (NEG) Urine Urobilinogen Dipstick 0.2 mg/dL (0.2 mg/dL) Urine Leukocyte Esterase Negative (NEG) Urine RBC 3-5 /HPF (0-2) Urine WBC 0 /HPF (0-4) Urine Bacteria 0 /HPF (0-FEW) Sodium Level 138 mmol/L (136-145) Potassium Level 3.7 mmol/L (3.5-5.1) Chloride Level 95 mmol/L (98-107) Carbon Dioxide Level 38 mmol/L (21-32) Anion Gap 5 (6-14) Blood Urea Nitrogen 23 mg/dL (7-20) Creatinine 1.1 mg/dL (0.6-1.0) Estimated GFR (Cockcroft-Gault) 46.9 Glucose Level 106 mg/dL (70-99) Calcium Level 7.1 mg/dL (8.5-10.1) Ionized Calcium 0.94 mmol/L (1.13-1.32) O2 Saturation 90 % (92-99) Arterial Blood pH 7.48 (7.35-7.45) Arterial Blood pCO2 at Patient Temp 58 mmHg (35-46) Arterial Blood pO2 at Patient Temp 55 mmHg (65-108) Arterial Blood HCO3 42 mmol/L (21-28) Arterial Blood Base Excess 15 mmol/L (-3-3) Oxyhemoglobin 89.7 % Methemoglobin 0.3 % (0.0-1.9) Carbon Monoxide, Quantitative 0.3 % (0.0-1.9) FiO2 44 Test 05/21/21 08:30 White Blood Count 12.6 x10^3/uL (4.0-11.0) Red Blood Count 4.81 x10^6/uL (3.50-5.40) Hemoglobin 15.2 g/dL (12.0-15.5) Hematocrit 46.3 % (36.0-47.0) Mean Corpuscular Volume 96 fL (79-100) Mean Corpuscular Hemoglobin 32 pg (25-35) Mean Corpuscular Hemoglobin Concent 33 g/dL (31-37) Red Cell Distribution Width 15.8 % (11.5-14.5) Platelet Count 193 x10^3/uL (140-400) Neutrophils (%) (Auto) 94 % (31-73) Lymphocytes (%) (Auto) 3 % (24-48) Monocytes (%) (Auto) 3 % (0-9) Eosinophils (%) (Auto) 0 % (0-3) Basophils (%) (Auto) 0 % (0-3) Neutrophils # (Auto) 11.9 x10^3/uL (1.8-7.7) Lymphocytes # (Auto) 0.4 x10^3/uL (1.0-4.8) Monocytes # (Auto) 0.4 x10^3/uL (0.0-1.1) Eosinophils # (Auto) 0.0 x10^3/uL (0.0-0.7) Basophils # (Auto) 0.0 x10^3/uL (0.0-0.2) Laboratory Tests Test 05/20/21 11:20 05/20/21 11:35 05/21/21 08:30 Ionized Calcium 0.94 mmol/L (1.13-1.32) O2 Saturation 90 % (92-99) Arterial Blood pH 7.48 (7.35-7.45) Arterial Blood pCO2 at Patient Temp 58 mmHg (35-46) Arterial Blood pO2 at Patient Temp 55 mmHg (65-108) Arterial Blood HCO3 42 mmol/L (21-28) Arterial Blood Base Excess 15 mmol/L (-3-3) Oxyhemoglobin 89.7 % Methemoglobin 0.3 % (0.0-1.9) Carbon Monoxide, Quantitative 0.3 % (0.0-1.9) FiO2 44 White Blood Count 12.6 x10^3/uL (4.0-11.0) Red Blood Count 4.81 x10^6/uL (3.50-5.40) Hemoglobin 15.2 g/dL (12.0-15.5) Hematocrit 46.3 % (36.0-47.0) Mean Corpuscular Volume 96 fL (79-100) Mean Corpuscular Hemoglobin 32 pg (25-35) Mean Corpuscular Hemoglobin Concent 33 g/dL (31-37) Red Cell Distribution Width 15.8 % (11.5-14.5) Platelet Count 193 x10^3/uL (140-400) Neutrophils (%) (Auto) 94 % (31-73) Lymphocytes (%) (Auto) 3 % (24-48) Monocytes (%) (Auto) 3 % (0-9) Eosinophils (%) (Auto) 0 % (0-3) Basophils (%) (Auto) 0 % (0-3) Neutrophils # (Auto) 11.9 x10^3/uL (1.8-7.7) Lymphocytes # (Auto) 0.4 x10^3/uL (1.0-4.8) Monocytes # (Auto) 0.4 x10^3/uL (0.0-1.1) Eosinophils # (Auto) 0.0 x10^3/uL (0.0-0.7) Basophils # (Auto) 0.0 x10^3/uL (0.0-0.2) Microbiology 05/17/21 Blood Culture - Preliminary, Resulted NO GROWTH AFTER 3 DAYS Medications Current Medications Aspirin (Aspirin Chewable) 81 mg DAILY PO Last administered on 05/20/21at 08:43; Start 05/18/21 at 09:00; Stop 05/20/21 at 08:59; Status DC Furosemide (Lasix) 40 mg DAILY PO Last administered on 05/21/21at 08:14; Start 05/18/21 at 09:00 Lisinopril (Prinivil) 5 mg DAILY PO Last administered on 05/19/21at 08:42; Start 05/18/21 at 09:00; Stop 05/19/21 at 15:23; Status DC Metoprolol Tartrate (Lopressor) 12.5 mg BID PO Last administered on 05/18/21at 20:24; Start 05/18/21 at 09:00; Stop 05/18/21 at 22:00; Status DC Hydralazine HCl (Apresoline Inj) 10 mg PRN Q4HRS PRN IVP ELEVATED BP, SEE COMMENTS Last administered on 05/18/21at 00:00; Start 05/17/21 at 22:15 Potassium Chloride (Klor-Con) 20 meq DAILYWBKFT PO Last administered on 05/21/21at 08:14; Start 05/19/21 at 08:00 Potassium Chloride (Klor-Con) 20 meq 1X ONCE PO Last administered on 05/18/21at 09:27; Start 05/18/21 at 09:30; Stop 05/18/21 at 09:31; Status DC Dexamethasone Sodium Phosphate (Decadron) 6 mg DAILY IVP Last administered on 05/21/21at 08:14; Start 05/18/21 at 12:00 Pantoprazole Sodium (Protonix) 40 mg DAILYAC PO Last administered on 05/21/21at 08:15; Start 05/18/21 at 16:30 Aspirin (Ecotrin) 81 mg DAILYWBKFT PO Last administered on 05/21/21at 08:15; Start 05/19/21 at 08:00 Atorvastatin Calcium (Lipitor) 20 mg QHS PO Last administered on 05/20/21at 19:56; Start 05/18/21 at 21:00 Metoprolol Succinate (Toprol Xl) 25 mg DAILY PO Last administered on 05/21/21at 08:15; Start 05/19/21 at 09:00 Lisinopril (Prinivil) 20 mg DAILY PO Last administered on 05/21/21at 08:14; Start 05/20/21 at 09:00 Lisinopril (Prinivil) 10 mg 1X ONCE PO Last administered on 05/19/21at 16:26; Start 05/19/21 at 15:30; Stop 05/19/21 at 15:31; Status DC Potassium Chloride (Klor-Con) 20 meq 1X ONCE PO Last administered on 05/19/21at 16:26; Start 05/19/21 at 15:30; Stop 05/19/21 at 15:31; Status DC Active Scripts Active Metoprolol Tartrate 25 Mg Tablet 12.5 Mg PO BID Lisinopril 5 Mg Tablet 5 Mg PO DAILY Levofloxacin 750 Mg Tablet 1 Tab PO DAILY Aspirin 81 Mg Tab.chew 1 Tab PO DAILY Vitals/I & O Vital Sign - Last 24 Hours 05/20/21 05/20/21 05/20/21 05/20/21 11:00 11:55 15:00 19:57 Temp 97.9 99.0 98.7 97.9 99.0 98.7 Pulse 61 69 76 Resp 22 22 18 B/P (MAP) 161/77 (105) 174/90 (118) 166/91 (116) Pulse Ox 92 91 99 95 O2 Delivery Nasal Cannula Nasal Cannula Nasal Cannula Nasal Cannula O2 Flow Rate 6.0 6.0 6.0 6.0 05/20/21 05/20/21 05/21/21 05/21/21 20:00 22:40 02:30 07:15 Temp 98.4 98.5 97.8 98.4 98.5 97.8 Pulse 76 82 77 Resp 16 18 18 B/P (MAP) 164/94 (117) 135/75 (95) 135/68 (90) Pulse Ox 96 95 95 O2 Delivery Nasal Cannula Nasal Cannula Nasal Cannula Nasal Cannula O2 Flow Rate 10.0 6.0 6.0 10.0 05/21/21 05/21/21 05/21/21 08:00 08:14 08:15 Pulse 77 77 B/P (MAP) 135/68 135/68 O2 Delivery Nasal Cannula O2 Flow Rate 10.0 Intake and Output 05/20/21 05/20/21 05/21/21 15:00 23:00 07:00 Intake Total 180 ml 0 ml Output Total 300 ml Balance -120 ml 0 ml Justicifation of Admission Dx: Justifications for Admission: Justification of Admission Dx: Yes Sepsis: Hypoxemia BLAIR GONZALEZ MD May 21, 2021 09:59
[2021-05-21 10:06] LABS: ALBUMIN 1.9 g/dL (3.4-5.0); ALBUMIN/GLOBULIN RATIO 0.6 (1.0-1.7); CALCIUM 7.7 mg/dL (8.5-10.1); CREATININE 0.9 mg/dL (0.6-1.0); GFR 59.1; POTASSIUM 3.1 mmol/L (3.5-5.1); TOTAL BILIRUBIN 1.5 mg/dL (0.2-1.0); TOTAL PROTEIN 5.2 g/dL (6.4-8.2)
[2021-05-21 10:37] VITALS: BP 117/58
[2021-05-21] MEDS ORDERED: POTASSIUM CHLORIDE 20MEQ 100 ML IV SCH (12:00)
[2021-05-21 12:40] LABS: BASE EXCESS COOX 16 mmol/L (-3-3); HCO3 COOX 42 mmol/L (21-28); METHEMOGLOBIN 0.5 % (0.0-1.9); OXYHEMOGLOBIN 86.1 %; PCO2 COOX 59 mmHg (35-46); PO2 COOX 50 mmHg (65-108); SAT O2 COOX 87 % (92-99)
[2021-05-21] MEDS: POTASSIUM CHLORIDE 10MEQ 100 ML IV SCH ×4 (13:18→18:14)
--- NOTE | 2021-05-21 14:26 | PDOC ---
DATE OF SERVICE DATE: 05/21/21 TIME: 14:25 SUBJECTIVE ROS stable , On o2 by HI OBJECTIVE Vital Signs Vital Signs Date Time Temp Pulse Resp B/P (MAP) Pulse Ox O2 Delivery O2 Flow Rate FiO2 05/21/21 12:41 98 05/21/21 12:35 Nasal Cannula 6.0 05/21/21 10:37 99.4 75 18 117/58 (77) 99.4 I & 0 Intake and Output 05/21/21 07:00 Intake Total 180 ml Output Total 300 ml Balance -120 ml Intake Oral 180 ml Output Urine Total 300 ml # Voids 4 # Bowel Movements 1 PHYSICAL EXAM Physical Exam General NAD HEEN on o2 by NC, OM moist Neck supple Lungs decreased at bases CV S1S2 Abd soft , NT, BS + No clark, No cva or sp tenderness Neuro Confused, AMS Derm Rash DIAGNOSIS/ASSESSMENT Assessment & Plan DEMETRI - Vasomotor / UA . supportive care , resolved Demetri . UOP? accuracy. Supportive care, maintain Hydration Avoid nephrotoxins, Strict I/O . Monit or CT scan No hydronephrosis HypoKalemia - replace as needed Renal Cyst - Right renal lower pole 2 cm cyst density 10 units. Ac Hypoxic Resp failure .Currently on O2 6 lts by HI CoVid 19 Pneumonia HypoAlbuminemia- Alb 1.8 HTN- On Furosmide and Lisinopril Will sign off COMMENT/RELEVANT DATA Meds Current Medications Medications (Trade) Dose Ordered Sig/Brice Start Time Stop Time Status Last Admin Dose Admin Aspirin (Aspirin Chewable) 81 mg DAILY 05/18/21 09:00 05/20/21 08:59 DC 05/20/21 08:43 81 MG Aspirin (Ecotrin) 81 mg [id number] 05/19/21 08:00 05/21/21 08:15 81 MG Atorvastatin Calcium (Lipitor) 20 mg QHS 05/18/21 21:00 05/20/21 19:56 20 MG Dexamethasone Sodium Phosphate (Decadron) 6 mg DAILY 05/18/21 12:00 05/21/21 08:14 6 MG Furosemide (Lasix) 40 mg DAILY 05/18/21 09:00 05/21/21 08:14 40 MG Hydralazine HCl (Apresoline Inj) 10 mg PRN Q4HRS PRN 05/17/21 22:15 05/18/21 00:00 10 MG Lisinopril (Prinivil) 10 mg 1X ONCE 05/19/21 15:30 05/19/21 15:31 DC 05/19/21 16:26 10 MG Metoprolol Succinate (Toprol Xl) 25 mg DAILY 05/19/21 09:00 05/21/21 08:15 25 MG Metoprolol Tartrate (Lopressor) 12.5 mg BID 05/18/21 09:00 05/18/21 22:00 DC 05/18/21 20:24 12.5 MG Pantoprazole Sodium (Protonix) 40 mg DAILYAC 05/18/21 16:30 05/21/21 08:15 40 MG Potassium Chloride/Water 100 ml @ 100 mls/hr Q1HR 05/21/21 13:00 05/21/21 16:59 05/21/21 13:18 100 MLS/HR Potassium Chloride (Klor-Con) 20 meq 1X ONCE 05/19/21 15:30 05/19/21 15:31 DC 05/19/21 16:26 20 MEQ Lab Laboratory Tests Test 05/21/21 08:30 05/21/21 12:35 White Blood Count 12.6 x10^3/uL (4.0-11.0) Red Blood Count 4.81 x10^6/uL (3.50-5.40) Hemoglobin 15.2 g/dL (12.0-15.5) Hematocrit 46.3 % (36.0-47.0) Mean Corpuscular Volume 96 fL (79-100) Mean Corpuscular Hemoglobin 32 pg (25-35) Mean Corpuscular Hemoglobin Concent 33 g/dL (31-37) Red Cell Distribution Width 15.8 % (11.5-14.5) Platelet Count 193 x10^3/uL (140-400) Neutrophils (%) (Auto) 94 % (31-73) Lymphocytes (%) (Auto) 3 % (24-48) Monocytes (%) (Auto) 3 % (0-9) Eosinophils (%) (Auto) 0 % (0-3) Basophils (%) (Auto) 0 % (0-3) Neutrophils # (Auto) 11.9 x10^3/uL (1.8-7.7) Lymphocytes # (Auto) 0.4 x10^3/uL (1.0-4.8) Monocytes # (Auto) 0.4 x10^3/uL (0.0-1.1) Eosinophils # (Auto) 0.0 x10^3/uL (0.0-0.7) Basophils # (Auto) 0.0 x10^3/uL (0.0-0.2) Sodium Level 139 mmol/L (136-145) Potassium Level 3.1 mmol/L (3.5-5.1) Chloride Level 95 mmol/L (98-107) Carbon Dioxide Level 39 mmol/L (21-32) Anion Gap 5 (6-14) Blood Urea Nitrogen 21 mg/dL (7-20) Creatinine 0.9 mg/dL (0.6-1.0) Estimated GFR (Cockcroft-Gault) 59.1 BUN/Creatinine Ratio 23 (6-20) Glucose Level 78 mg/dL (70-99) Calcium Level 7.7 mg/dL (8.5-10.1) Ferritin 603 ng/mL (8-252) Total Bilirubin 1.5 mg/dL (0.2-1.0) Aspartate Amino Transf (AST/SGOT) 40 U/L (15-37) Alanine Aminotransferase (ALT/SGPT) 18 U/L (14-59) Alkaline Phosphatase 53 U/L (46-116) Total Protein 5.2 g/dL (6.4-8.2) Albumin 1.9 g/dL (3.4-5.0) Albumin/Globulin Ratio 0.6 (1.0-1.7) O2 Saturation 87 % (92-99) Arterial Blood pH 7.48 (7.35-7.45) Arterial Blood pCO2 at Patient Temp 59 mmHg (35-46) Arterial Blood pO2 at Patient Temp 50 mmHg (65-108) Arterial Blood HCO3 42 mmol/L (21-28) Arterial Blood Base Excess 16 mmol/L (-3-3) Oxyhemoglobin 86.1 % Methemoglobin 0.5 % (0.0-1.9) Carbon Monoxide, Quantitative 0.3 % (0.0-1.9) FiO2 44 Results All relevant outside records, renal labs, imaging studies, telemetry/EKG's were reviewed. Justicifation of Admission Dx: Justifications for Admission: Justification of Admission Dx: Yes Sepsis: Hypoxemia LIGIA,KEE MD May 21, 2021 14:26
[2021-05-21 15:00] VITALS: BP 139/71
[2021-05-21 19:31] VITALS: BP 145/67
[2021-05-21] MEDS: ATORVASTATIN CALCIUM 20 MG TABLET PO SCH (20:33)
[2021-05-21 22:34] VITALS: BP 170/80
[2021-05-22 02:55] VITALS: BP_SYST 167; BP_SYST 194; BP_DIAS 80; BP_DIAS 89
[2021-05-22 05:29] LABS: BASO % 0 % (0-3); EOS % 0 % (0-3); HEMATOCRIT 45.7 % (36.0-47.0); HEMOGLOBIN 14.6 g/dL (12.0-15.5); LYMPH # 0.6 x10^3/uL (1.0-4.8); LYMPH % 4 % (24-48); MEAN CORPUSCULAR HEMOGLOBIN 31 pg (25-35); MEAN CORPUSCULAR HGB CONC 32 g/dL (31-37); MEAN CORPUSCULAR VOLUME 98 fL (79-100); MONO # 0.4 x10^3/uL (0.0-1.1); MONO % 3 % (0-9); NEUT % 93 % (31-73); PLATELET COUNT 204 x10^3/uL (140-400); RED BLOOD COUNT 4.68 x10^6/uL (3.50-5.40); RED CELL DISTRIBUTION WIDTH 16.2 % (11.5-14.5)
[2021-05-22 05:53] LABS: ALBUMIN 1.8 g/dL (3.4-5.0); ALBUMIN/GLOBULIN RATIO 0.5 (1.0-1.7); CALCIUM 7.9 mg/dL (8.5-10.1); CREATININE 1.3 mg/dL (0.6-1.0); GFR 38.7; POTASSIUM 4.3 mmol/L (3.5-5.1); TOTAL BILIRUBIN 1.4 mg/dL (0.2-1.0); TOTAL PROTEIN 5.1 g/dL (6.4-8.2)
[2021-05-22] MEDS: PANTOPRAZOLE 40 MG TABLET.DR. PO SCH (07:30)
[2021-05-22 07:55] VITALS: BP 171/88
[2021-05-22] MEDS: ASPIRIN ENTERIC COATED 81 MG TABLET.DR. PO SCH (08:00)
[2021-05-22] MEDS: POTASSIUM CHLORIDE 20 MEQ TABLET.ER. PO SCH (08:00)
[2021-05-22] MEDS: FUROSEMIDE 40 MG TABLET. PO SCH (09:00)
[2021-05-22] MEDS: LISINOPRIL 20 MG TABLET PO SCH (09:00)
[2021-05-22] MEDS: METOPROLOL SUCC 24HR ER 25 MG TAB.ER.24H. PO SCH (09:00)
--- NOTE | 2021-05-22 09:36 | PDOC ---
PROGRESS NOTES Date of Service: DATE: 05/22/21 TIME: 09:35 Chief Complaint Chief Complaint VTE Prophylaxis Ordered VTE Prophylaxis Devices: No VTE Pharmacological Prophylaxi: Yes Assessment/Plan Assessment/Plan Impression: COVID-19 pneumonia Severe protein-caloric malnutrition , underweight Hypoxia/ IE ACUTE Hypoxic respiratory failure, hypercapnic NSTEMI DEMETRI (acute kidney injury) hypokalemia, on replacement rx Left ventricle systolic function is severely impaired. The Ejection Fraction is 20-25%./ ECHO 2017 ACUTE METABOLIC ENCEPHALOPATHY Edema surrounding the terminal ileum suggestive of distal ileitis. No bowel obstruction. Appendix is negative. Rectosigmoid diverticulosis without evidence of diverticulitis. Mild/moderate pleural effusions and dependent lower lobe groundglass densities and interstitial reticulation which may represent pulmonary edema Several low-density lesions are noted within visualized portions of liver. Metastatic disease cannot be excluded. CT 2017 Mild troponin elevation; most probably type II, demand ischemia in setting of above. Acute on chronic systolic CHF, cardiomyopathy; Echo 2017 with LVEF 20-25%. appears compensated ADMITTED===== consult pulm med consult cardiology o2 support consult nephrology dvt prophylaxis hold nephrotoxic meds Consult GI 05-20 NEED TO UPDATE CODE STATUS D/W RN Justifications for Admission Justifications for Admission Other Justification BLAIR GONZALEZ MD May 18, 2021 08:49 History of Present Illness History of Present Illness Identification/Chief Complaint Chief Complaint CONFUSION, RECTAL BLEEDING, COUGH History of Present Illness History of Present Illness poor historian and has no complaints except SOA, rectal bleeding Covid pos in er [employer] hx bright red bloody bowel movement AM OF 9-14 . Per EMS patient's family is positive for Covid Rectosigmoid diverticulosis ON RECENT CT / confused (AMS) and its not her baseline / only oriented to self RECENT ECHO IN 2017 / Left ventricle systolic function is severely impaired. The Ejection Fraction is 20-25%./ ECHO 2017 COVID POS IN ER WITH ACUTE METABOLIC ENCEPHALOPATHY / Hematochezia. Blood in stool. STARTED ON IV DEXAMETHASONE 6 MG IV TROPONIN I 0.631 IN er Several low-density lesions are noted within visualized portions of liver. / Metastatic disease cannot be excluded. [address] abd Edema surrounding the terminal ileum suggestive of distal ileitis. No bowel obstruction. Appendix is negative. / Rectosigmoid diverticulosis without evidence of diverticulitis. Mild/moderate pleural effusions and dependent lower lobe groundglass densities and interstitial reticulation which may represent pulmonary edema PLAN == ADMIT // consult pulm med / consult cardiology / o2 support / consult nephrology /dvt prophylaxis / hold nephrotoxic meds Past Medical History Past Medical History Past Medical History Past Medical History Past Medical History: Hypertension Additional Past Medical Histor: BLEEDING ULCERS Past Surgical History: No Surgical History Smoking Status: Never Smoker Alcohol Use: None Drug Use: None Cardiovascular: HTN, Hyperlipidemia Pulmonary: COPD CENTRAL NERVOUS SYSTEM: Dementia Musculoskeletal: Osteoarthritis, Weakness Past Surgical History Past Surgical History: No pertinent history Family History Family History: High Cholestrol, Hypertension Social History Smoke: No ALCOHOL: none Drugs: None Current Problem List Problem List Problems Medical Problems: (1) DEMETRI (acute kidney injury) Status: Acute (2) COVID-19 Status: Acute (3) Hypoxia Status: Acute (4) NSTEMI (non-ST elevated myocardial infarction) Status: Acute (5) Person under investigation for COVID-19 Status: Acute Current Medications Current Medications Current Medications Aspirin (Aspirin Chewable) 81 mg DAILY PO Last administered on 05/18/21at 08:12; Start 05/18/21 at 09:00 Furosemide (Lasix) 40 mg DAILY PO Last administered on 05/18/21at 08:12; Start 05/18/21 at 09:00 Lisinopril (Prinivil) 5 mg DAILY PO Last administered on 05/18/21at 08:11; Start 05/18/21 at 09:00 Metoprolol Tartrate (Lopressor) 12.5 mg BID PO Last administered on 05/18/21at 08:12; Start 05/18/21 at 09:00 Hydralazine HCl (Apresoline Inj) 10 mg PRN Q4HRS PRN IVP ELEVATED BP, SEE COMMENTS Last administered on 05/18/21at 00:00; Start 05/17/21 at 22:15 Active Scripts Active Metoprolol Tartrate 25 Mg Tablet 12.5 Mg PO BID Lisinopril 5 Mg Tablet 5 Mg PO DAILY Lasix (Furosemide) 40 Mg Tablet 1 Tab PO DAILY Levofloxacin 750 Mg Tablet 1 Tab PO DAILY Aspirin 81 Mg Tab.chew 1 Tab PO DAILY Allergies Allergies: Coded Allergies: Penicillins (Verified Allergy, Intermediate, 11/15/16) Sulfa (Sulfonamide Antibiotics) (Verified Allergy, Intermediate, 11/15/16) ROS Review of System 14 pt ros otherwise neg General: YES: Fatigue; No: Chills, Night Sweats, Malaise, Appetite, Other PSYCHOLOGICAL ROS: YES: Concentration difficultie, Disorientation, Memory difficulties; No: Anxiety, Behavioral Disorder, Decreased libido, Depression, Hallucinations, Hostility, Irritablity, Mood Swings, Obsessive thoughts, Physical abuse, Sexual abuse, Sleep disturbances, Suicidal ideation, Other Eyes: No Blurry vision, No Decreased vision, No Double vision, No Dry eyes, No Excessive tearing, No Eye Pain, No Itchy Eyes, No Loss of vision, No Photophobia, No Scotomata, No Uses contacts, No Uses glasses, No Other HEENT: No: Heacaches, Visual Changes, Hearing change, Nasal congestion, Nasal discharge, Oral lesions, Sinus pain, Sore Throat, Epistaxis, Sneezing, Snoring, Tinnitus, Vertigo, Vocal changes, Other ALLERGY AND IMMUNOLOGY: YES: Hives; No: Insect Bite Sensitivity, Itchy/Watery Eyes, Nasal Congestion, Post Nasal Drip, Seasonal Allergies, Other Hematological and Lymphatic: YES: Bleeding Problems; No: Blood Clots, Blood Transfusions, Brusing, Night Sweats, Pallor, Swollen Lymph Nodes, Other ENDOCRINE: No: Breast Changes, Galactorrhea, Hair Pattern Changes, Hot Flashes, Malaise/lethargy, Mood Swings, Palpitations, Polydipsia/polyuria, Skin Changes, Temperature Intolerance, Unexpected Weight Changes, Other Breast: No New/Changing Breast Lumps, No Nipple changes, No Nipple discharge, No Other Respiratory: YES: Shortness of breath, SOB with excertion Cardiovascular: No Chest Pain, No Palpitations, No Orthopnea, No Paroxysmal Noc. Dyspnea, No Edema, No Lt Headedness, No Other Gastrointestinal: No Nausea, No Vomiting, No Abdominal Pain, No Diarrhea, No Constipation, No Melena, No Hematochezia, No Other Genitourinary: No Dysuria, No Frequency, No Incontinence, No Hematuria, No Retention, No Discharge, No Urgency, No Pain, No Flank Pain, No Other, No , No , No , No , No , No , No Musculoskeletal: Yes Joint Stiffness; No Gait Disturbance, No Joint Pain, No Joint Swelling, No Muscle Pain, No Muscular Weakness, No Pain In:, No Swelling In:, No Other Neurological: Yes Confusion; No Behavorial Changes, No Bowel/Bladder ControlChng, No Dizziness, No Gait Disturbance, No Headaches, No Impaired Coord/balance, No Memory Loss, No Numbness/Tingling, No Seizures, No Speech Problems, No Tremors, No Visual Changes, No Weakness, No Other Skin: Yes Dry Skin; No Eczema, No Hair Changes, No Lumps, No Mole Changes, No Mottling, No Nail Changes, No Pruritus, No Rash, No Skin Lesion Changes, No Other, No Acne 9-16 COVID-19 pneumonia Severe protein-caloric malnutrition , underweight CBC not suggestive of iron deficiency not c/w with bowel-related cancer Hypoxia/ IE ACUTE Hypoxic respiratory failure Mild troponin elevation; most probably type II, demand ischemia in setting of above. Acute on chronic systolic CHF, cardiomyopathy; Echo 2017 with LVEF 20-25%. compensated NSTEMI DEMETRI (acute kidney injury) hypokalemia, on replacement rx Left ventricle systolic function is severely impaired. The Ejection Fraction is 20-25%./ ECHO 2017 ACUTE METABOLIC ENCEPHALOPATHY IMPROVING Edema surrounding the terminal ileum suggestive of distal ileitis. No bowel obstruction. Appendix is negative. Rectosigmoid diverticulosis without evidence of diverticulitis. Mild/moderate pleural effusions and dependent lower lobe groundglass densities and interstitial reticulation which may represent pulmonary edema Several low-density lesions are noted within visualized portions of liver. Metastatic disease cannot be excluded. CT 2017 consult pulm med consult cardiology o2 support consult nephrology dvt prophylaxis hold nephrotoxic meds Consult GI consider liver US /conservative management might be santoyo 38 MIN pt exam, chart review, > 50% of time spent with exam, chart review, pt care coordination 05-20 CXR 05-20 PENDING , ABG COVID-19 pneumonia Severe protein-caloric malnutrition , underweight CBC not suggestive of iron deficiency not c/w with bowel-related cancer Hypoxia/ IE ACUTE Hypoxic respiratory failure Mild troponin elevation; most probably type II, demand ischemia in setting of above. Acute on chronic systolic CHF, cardiomyopathy; Echo 2017 with LVEF 20-25%. compensated NSTEMI DEMETRI (acute kidney injury) hypokalemia, on replacement rx Left ventricle systolic function is severely impaired. The Ejection Fraction is 20-25%./ ECHO 2017 ACUTE METABOLIC ENCEPHALOPATHY IMPROVING Edema surrounding the terminal ileum suggestive of distal ileitis. No bowel obstruction. Appendix is negative. Rectosigmoid diverticulosis without evidence of diverticulitis. Mild/moderate pleural effusions and dependent lower lobe groundglass densities and interstitial reticulation which may represent pulmonary edema Several low-density lesions are noted within visualized portions of liver. Metastatic disease cannot be excluded. CT 2017 consult pulm med consult cardiology o2 support consult nephrology dvt prophylaxis hold nephrotoxic meds Consult GI consider liver US /conservative management is santoyo ferritin in AM 36 MIN pt exam, chart review, > 50% of time spent with exam, chart review, pt care coordination 05-21 Continue present oxygen, keep saturations 90% and above. REPEAT ABG CONT dexamethasone. avoid further diuresis. 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 Acute on chronic systolic CHF, cardiomyopathy; Echo 2017 with LVEF 20-25%. compensated NSTEMI DEMETRI (acute kidney injury) hypokalemia, on replacement rx Left ventricle systolic function is severely impaired. The Ejection Fraction is 20-25%./ ECHO 2017 ACUTE METABOLIC ENCEPHALOPATHY Edema surrounding the terminal ileum suggestive of distal ileitis. No bowel obstruction. Appendix is negative. Rectosigmoid diverticulosis without evidence of diverticulitis. Mild/moderate pleural effusions and dependent lower lobe groundglass densities and interstitial reticulation which may represent pulmonary edema Several low-density lesions are noted within visualized portions of liver. Metastatic disease cannot be excluded. CT 2017 consult pulm med consult cardiology o2 support consult nephrology dvt prophylaxis hold nephrotoxic meds Consult GI consider liver US /conservative management is santoyo ferritin POOR PROGNOSIS, FAMILY called no answer, encouraging conservative rx given age 29 MIN pt exam, chart review, > 50% of time spent with exam, chart review, pt care coordination 05-21 Continue present oxygen, keep saturations 90% and above. REPEAT ABG CONT dexamethasone. avoid further diuresis. 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 Acute on chronic systolic CHF, cardiomyopathy; Echo 2017 with LVEF 20-25%. compensated NSTEMI DEMETRI (acute kidney injury) hypokalemia, on replacement rx Left ventricle systolic function is severely impaired. The Ejection Fraction is 20-25%./ ECHO 2017 ACUTE METABOLIC ENCEPHALOPATHY Edema surrounding the terminal ileum suggestive of distal ileitis. No bowel obstruction. Appendix is negative. Rectosigmoid diverticulosis without evidence of diverticulitis. Mild/moderate pleural effusions and dependent lower lobe groundglass densities and interstitial reticulation which may represent pulmonary edema Several low-density lesions are noted within visualized portions of liver. Metastatic disease cannot be excluded. CT 2017 consult pulm med consult cardiology o2 support consult nephrology dvt prophylaxis hold nephrotoxic meds Consult GI consider liver US /conservative management is santoyo ferritin POOR PROGNOSIS, FAMILY called no answer, encouraging conservative rx given age NOW IS dnr per rn 27 MIN pt exam, chart review, > 50% of time spent with exam, chart review, pt care coordination Vitals Vitals Vital Signs Date Time Temp Pulse Resp B/P (MAP) Pulse Ox O2 Delivery O2 Flow Rate FiO2 05/22/21 07:55 98.2 80 18 171/88 (115) 97 Nasal Cannula 5.0 98.2 Physical Exam Physical Exam lethargic General: Cooperative, No acute distress, Other (alert to person ) Heart: Regular rate (SR with LBBB), Normal S1 Lungs: Clear Abdomen: Normal bowel sounds, Soft, No tenderness Extremities: No clubbing, No cyanosis, No edema Skin: No rashes, No significant lesion Labs LABS Laboratory Tests Test 05/21/21 12:35 05/22/21 02:00 05/22/21 04:30 O2 Saturation 87 % (92-99) Arterial Blood pH 7.48 (7.35-7.45) Arterial Blood pCO2 at Patient Temp 59 mmHg (35-46) Arterial Blood pO2 at Patient Temp 50 mmHg (65-108) Arterial Blood HCO3 42 mmol/L (21-28) Arterial Blood Base Excess 16 mmol/L (-3-3) Oxyhemoglobin 86.1 % Methemoglobin 0.5 % (0.0-1.9) Carbon Monoxide, Quantitative 0.3 % (0.0-1.9) FiO2 44 Sodium Level 142 mmol/L (136-145) Potassium Level 4.3 mmol/L (3.5-5.1) Chloride Level 98 mmol/L (98-107) Carbon Dioxide Level 44 mmol/L (21-32) Anion Gap 0 (6-14) Blood Urea Nitrogen 29 mg/dL (7-20) Creatinine 1.3 mg/dL (0.6-1.0) Estimated GFR (Cockcroft-Gault) 38.7 BUN/Creatinine Ratio 22 (6-20) Glucose Level 99 mg/dL (70-99) Calcium Level 7.9 mg/dL (8.5-10.1) Total Bilirubin 1.4 mg/dL (0.2-1.0) Aspartate Amino Transf (AST/SGOT) 24 U/L (15-37) Alanine Aminotransferase (ALT/SGPT) 11 U/L (14-59) Alkaline Phosphatase 47 U/L (46-116) Total Protein 5.1 g/dL (6.4-8.2) Albumin 1.8 g/dL (3.4-5.0) Albumin/Globulin Ratio 0.5 (1.0-1.7) White Blood Count 14.0 x10^3/uL (4.0-11.0) Red Blood Count 4.68 x10^6/uL (3.50-5.40) Hemoglobin 14.6 g/dL (12.0-15.5) Hematocrit 45.7 % (36.0-47.0) Mean Corpuscular Volume 98 fL (79-100) Mean Corpuscular Hemoglobin 31 pg (25-35) Mean Corpuscular Hemoglobin Concent 32 g/dL (31-37) Red Cell Distribution Width 16.2 % (11.5-14.5) Platelet Count 204 x10^3/uL (140-400) Neutrophils (%) (Auto) 93 % (31-73) Lymphocytes (%) (Auto) 4 % (24-48) Monocytes (%) (Auto) 3 % (0-9) Eosinophils (%) (Auto) 0 % (0-3) Basophils (%) (Auto) 0 % (0-3) Neutrophils # (Auto) 13.0 x10^3/uL (1.8-7.7) Lymphocytes # (Auto) 0.6 x10^3/uL (1.0-4.8) Monocytes # (Auto) 0.4 x10^3/uL (0.0-1.1) Eosinophils # (Auto) 0.0 x10^3/uL (0.0-0.7) Basophils # (Auto) 0.0 x10^3/uL (0.0-0.2) Assessment and Plan Assessmemt and Plan Problems Medical Problems: (1) DEMETRI (acute kidney injury) Status: Acute (2) COVID-19 Status: Acute (3) Hypoxia Status: Acute (4) NSTEMI (non-ST elevated myocardial infarction) Status: Acute (5) Person under investigation for COVID-19 Status: Acute Comment Review of Relevant I have reviewed the following items brenton (where applicable) has been applied. Labs Laboratory Tests Test 05/20/21 11:20 05/20/21 11:35 05/21/21 08:30 05/21/21 12:35 Ionized Calcium 0.94 mmol/L (1.13-1.32) O2 Saturation 90 % (92-99) 87 % (92-99) Arterial Blood pH 7.48 (7.35-7.45) 7.48 (7.35-7.45) Arterial Blood pCO2 at Patient Temp 58 mmHg (35-46) 59 mmHg (35-46) Arterial Blood pO2 at Patient Temp 55 mmHg (65-108) 50 mmHg (65-108) Arterial Blood HCO3 42 mmol/L (21-28) 42 mmol/L (21-28) Arterial Blood Base Excess 15 mmol/L (-3-3) 16 mmol/L (-3-3) Oxyhemoglobin 89.7 % 86.1 % Methemoglobin 0.3 % (0.0-1.9) 0.5 % (0.0-1.9) Carbon Monoxide, Quantitative 0.3 % (0.0-1.9) 0.3 % (0.0-1.9) FiO2 44 44 White Blood Count 12.6 x10^3/uL (4.0-11.0) Red Blood Count 4.81 x10^6/uL (3.50-5.40) Hemoglobin 15.2 g/dL (12.0-15.5) Hematocrit 46.3 % (36.0-47.0) Mean Corpuscular Volume 96 fL (79-100) Mean Corpuscular Hemoglobin 32 pg (25-35) Mean Corpuscular Hemoglobin Concent 33 g/dL (31-37) Red Cell Distribution Width 15.8 % (11.5-14.5) Platelet Count 193 x10^3/uL (140-400) Neutrophils (%) (Auto) 94 % (31-73) Lymphocytes (%) (Auto) 3 % (24-48) Monocytes (%) (Auto) 3 % (0-9) Eosinophils (%) (Auto) 0 % (0-3) Basophils (%) (Auto) 0 % (0-3) Neutrophils # (Auto) 11.9 x10^3/uL (1.8-7.7) Lymphocytes # (Auto) 0.4 x10^3/uL (1.0-4.8) Monocytes # (Auto) 0.4 x10^3/uL (0.0-1.1) Eosinophils # (Auto) 0.0 x10^3/uL (0.0-0.7) Basophils # (Auto) 0.0 x10^3/uL (0.0-0.2) Sodium Level 139 mmol/L (136-145) Potassium Level 3.1 mmol/L (3.5-5.1) Chloride Level 95 mmol/L (98-107) Carbon Dioxide Level 39 mmol/L (21-32) Anion Gap 5 (6-14) Blood Urea Nitrogen 21 mg/dL (7-20) Creatinine 0.9 mg/dL (0.6-1.0) Estimated GFR (Cockcroft-Gault) 59.1 BUN/Creatinine Ratio 23 (6-20) Glucose Level 78 mg/dL (70-99) Calcium Level 7.7 mg/dL (8.5-10.1) Ferritin 603 ng/mL (8-252) Total Bilirubin 1.5 mg/dL (0.2-1.0) Aspartate Amino Transf (AST/SGOT) 40 U/L (15-37) Alanine Aminotransferase (ALT/SGPT) 18 U/L (14-59) Alkaline Phosphatase 53 U/L (46-116) Total Protein 5.2 g/dL (6.4-8.2) Albumin 1.9 g/dL (3.4-5.0) Albumin/Globulin Ratio 0.6 (1.0-1.7) Test 05/22/21 02:00 05/22/21 04:30 Sodium Level 142 mmol/L (136-145) Potassium Level 4.3 mmol/L (3.5-5.1) Chloride Level 98 mmol/L (98-107) Carbon Dioxide Level 44 mmol/L (21-32) Anion Gap 0 (6-14) Blood Urea Nitrogen 29 mg/dL (7-20) Creatinine 1.3 mg/dL (0.6-1.0) Estimated GFR (Cockcroft-Gault) 38.7 BUN/Creatinine Ratio 22 (6-20) Glucose Level 99 mg/dL (70-99) Calcium Level 7.9 mg/dL (8.5-10.1) Total Bilirubin 1.4 mg/dL (0.2-1.0) Aspartate Amino Transf (AST/SGOT) 24 U/L (15-37) Alanine Aminotransferase (ALT/SGPT) 11 U/L (14-59) Alkaline Phosphatase 47 U/L (46-116) Total Protein 5.1 g/dL (6.4-8.2) Albumin 1.8 g/dL (3.4-5.0) Albumin/Globulin Ratio 0.5 (1.0-1.7) White Blood Count 14.0 x10^3/uL (4.0-11.0) Red Blood Count 4.68 x10^6/uL (3.50-5.40) Hemoglobin 14.6 g/dL (12.0-15.5) Hematocrit 45.7 % (36.0-47.0) Mean Corpuscular Volume 98 fL (79-100) Mean Corpuscular Hemoglobin 31 pg (25-35) Mean Corpuscular Hemoglobin Concent 32 g/dL (31-37) Red Cell Distribution Width 16.2 % (11.5-14.5) Platelet Count 204 x10^3/uL (140-400) Neutrophils (%) (Auto) 93 % (31-73) Lymphocytes (%) (Auto) 4 % (24-48) Monocytes (%) (Auto) 3 % (0-9) Eosinophils (%) (Auto) 0 % (0-3) Basophils (%) (Auto) 0 % (0-3) Neutrophils # (Auto) 13.0 x10^3/uL (1.8-7.7) Lymphocytes # (Auto) 0.6 x10^3/uL (1.0-4.8) Monocytes # (Auto) 0.4 x10^3/uL (0.0-1.1) Eosinophils # (Auto) 0.0 x10^3/uL (0.0-0.7) Basophils # (Auto) 0.0 x10^3/uL (0.0-0.2) Laboratory Tests Test 05/21/21 12:35 05/22/21 02:00 05/22/21 04:30 O2 Saturation 87 % (92-99) Arterial Blood pH 7.48 (7.35-7.45) Arterial Blood pCO2 at Patient Temp 59 mmHg (35-46) Arterial Blood pO2 at Patient Temp 50 mmHg (65-108) Arterial Blood HCO3 42 mmol/L (21-28) Arterial Blood Base Excess 16 mmol/L (-3-3) Oxyhemoglobin 86.1 % Methemoglobin 0.5 % (0.0-1.9) Carbon Monoxide, Quantitative 0.3 % (0.0-1.9) FiO2 44 Sodium Level 142 mmol/L (136-145) Potassium Level 4.3 mmol/L (3.5-5.1) Chloride Level 98 mmol/L (98-107) Carbon Dioxide Level 44 mmol/L (21-32) Anion Gap 0 (6-14) Blood Urea Nitrogen 29 mg/dL (7-20) Creatinine 1.3 mg/dL (0.6-1.0) Estimated GFR (Cockcroft-Gault) 38.7 BUN/Creatinine Ratio 22 (6-20) Glucose Level 99 mg/dL (70-99) Calcium Level 7.9 mg/dL (8.5-10.1) Total Bilirubin 1.4 mg/dL (0.2-1.0) Aspartate Amino Transf (AST/SGOT) 24 U/L (15-37) Alanine Aminotransferase (ALT/SGPT) 11 U/L (14-59) Alkaline Phosphatase 47 U/L (46-116) Total Protein 5.1 g/dL (6.4-8.2) Albumin 1.8 g/dL (3.4-5.0) Albumin/Globulin Ratio 0.5 (1.0-1.7) White Blood Count 14.0 x10^3/uL (4.0-11.0) Red Blood Count 4.68 x10^6/uL (3.50-5.40) Hemoglobin 14.6 g/dL (12.0-15.5) Hematocrit 45.7 % (36.0-47.0) Mean Corpuscular Volume 98 fL (79-100) Mean Corpuscular Hemoglobin 31 pg (25-35) Mean Corpuscular Hemoglobin Concent 32 g/dL (31-37) Red Cell Distribution Width 16.2 % (11.5-14.5) Platelet Count 204 x10^3/uL (140-400) Neutrophils (%) (Auto) 93 % (31-73) Lymphocytes (%) (Auto) 4 % (24-48) Monocytes (%) (Auto) 3 % (0-9) Eosinophils (%) (Auto) 0 % (0-3) Basophils (%) (Auto) 0 % (0-3) Neutrophils # (Auto) 13.0 x10^3/uL (1.8-7.7) Lymphocytes # (Auto) 0.6 x10^3/uL (1.0-4.8) Monocytes # (Auto) 0.4 x10^3/uL (0.0-1.1) Eosinophils # (Auto) 0.0 x10^3/uL (0.0-0.7) Basophils # (Auto) 0.0 x10^3/uL (0.0-0.2) Microbiology 05/17/21 Blood Culture - Preliminary, Resulted NO GROWTH AFTER 4 DAYS Medications Current Medications Aspirin (Aspirin Chewable) 81 mg DAILY PO Last administered on 05/20/21at 08:43; Start 05/18/21 at 09:00; Stop 05/20/21 at 08:59; Status DC Furosemide (Lasix) 40 mg DAILY PO Last administered on 05/21/21at 08:14; Start 05/18/21 at 09:00 Lisinopril (Prinivil) 5 mg DAILY PO Last administered on 05/19/21at 08:42; Start 05/18/21 at 09:00; Stop 05/19/21 at 15:23; Status DC Metoprolol Tartrate (Lopressor) 12.5 mg BID PO Last administered on 05/18/21at 20:24; Start 05/18/21 at 09:00; Stop 05/18/21 at 22:00; Status DC Hydralazine HCl (Apresoline Inj) 10 mg PRN Q4HRS PRN IVP ELEVATED BP, SEE COMMENTS Last administered on 05/18/21at 00:00; Start 05/17/21 at 22:15 Potassium Chloride (Klor-Con) 20 meq DAILYWBKFT PO Last administered on 05/21/21at 08:14; Start 05/19/21 at 08:00 Potassium Chloride (Klor-Con) 20 meq 1X ONCE PO Last administered on 05/18/21at 09:27; Start 05/18/21 at 09:30; Stop 05/18/21 at 09:31; Status DC Dexamethasone Sodium Phosphate (Decadron) 6 mg DAILY IVP Last administered on 05/21/21at 08:14; Start 05/18/21 at 12:00 Pantoprazole Sodium (Protonix) 40 mg DAILYAC PO Last administered on 05/21/21at 08:15; Start 05/18/21 at 16:30 Aspirin (Ecotrin) 81 mg DAILYWBKFT PO Last administered on 05/21/21at 08:15; Start 05/19/21 at 08:00 Atorvastatin Calcium (Lipitor) 20 mg QHS PO Last administered on 05/21/21at 20:33; Start 05/18/21 at 21:00 Metoprolol Succinate (Toprol Xl) 25 mg DAILY PO Last administered on 05/21/21at 08:15; Start 05/19/21 at 09:00 Lisinopril (Prinivil) 20 mg DAILY PO Last administered on 05/21/21at 08:14; Start 05/20/21 at 09:00 Lisinopril (Prinivil) 10 mg 1X ONCE PO Last administered on 05/19/21at 16:26; Start 05/19/21 at 15:30; Stop 05/19/21 at 15:31; Status DC Potassium Chloride (Klor-Con) 20 meq 1X ONCE PO Last administered on 05/19/21at 16:26; Start 05/19/21 at 15:30; Stop 05/19/21 at 15:31; Status DC Potassium Chloride/Water 100 ml @ 100 mls/hr Q1H IV ; Start 05/21/21 at 12:00; Stop 05/21/21 at 13:59; Status Cancel Potassium Chloride/Water 100 ml @ 100 mls/hr Q1HR IV Last administered on 05/21/21at 18:14; Start 05/21/21 at 13:00; Stop 05/21/21 at 16:59; Status DC Active Scripts Active Metoprolol Tartrate 25 Mg Tablet 12.5 Mg PO BID Lisinopril 5 Mg Tablet 5 Mg PO DAILY Levofloxacin 750 Mg Tablet 1 Tab PO DAILY Aspirin 81 Mg Tab.chew 1 Tab PO DAILY Vitals/I & O Vital Sign - Last 24 Hours 05/21/21 05/21/21 05/21/21 05/21/21 10:37 12:35 12:41 15:00 Temp 99.4 97.7 99.4 97.7 Pulse 75 79 Resp 18 22 B/P (MAP) 117/58 (77) 139/71 (93) Pulse Ox 95 91 98 96 O2 Delivery Nasal Cannula Nasal Cannula Nasal Cannula O2 Flow Rate 5.0 6.0 5.0 05/21/21 05/21/21 05/21/21 05/22/21 19:31 19:46 22:34 02:55 Temp 97.9 97.6 97.8 97.9 97.6 97.8 Pulse 81 79 78 Resp 16 18 18 B/P (MAP) 145/67 (93) 170/80 (110) 167/80 (109) Pulse Ox 95 98 98 O2 Delivery Nasal Cannula Nasal Cannula Nasal Cannula Nasal Cannula O2 Flow Rate 5.0 5.0 5.0 5.0 05/22/21 07:55 Temp 98.2 98.2 Pulse 80 Resp 18 B/P (MAP) 171/88 (115) Pulse Ox 97 O2 Delivery Nasal Cannula O2 Flow Rate 5.0 Intake and Output 05/21/21 05/21/21 05/22/21 15:00 23:00 07:00 Intake Total 0 ml 0 ml Output Total 500 ml Balance -500 ml 0 ml Justicifation of Admission Dx: Justifications for Admission: Justification of Admission Dx: Yes Sepsis: Hypoxemia BLAIR GONZALEZ MD May 22, 2021 09:35
[2021-05-22 11:24] VITALS: BP 156/72
--- NOTE | 2021-05-22 12:30 | PDOC ---
PULMONARY PROGRESS NOTES DATE: 05/22/21 TIME: 12:28 Subjective Patient is appears comfortable is sleepy Remains on 5 L nasal cannula Vitals Vital Signs Date Time Temp Pulse Resp B/P (MAP) Pulse Ox O2 Delivery O2 Flow Rate FiO2 05/22/21 11:24 97.6 79 20 156/72 (100) 95 Nasal Cannula 5.0 97.6 Comments no distress nc at no accessory muscle use rrr no edema Cardiovascular: S1, S2 Abdomen: Other Extremities: No Edema Skin: No Rashes Labs Laboratory Tests Test 05/21/21 08:30 05/21/21 12:35 05/22/21 02:00 05/22/21 04:30 White Blood Count 12.6 x10^3/uL (4.0-11.0) 14.0 x10^3/uL (4.0-11.0) Red Blood Count 4.81 x10^6/uL (3.50-5.40) 4.68 x10^6/uL (3.50-5.40) Hemoglobin 15.2 g/dL (12.0-15.5) 14.6 g/dL (12.0-15.5) Hematocrit 46.3 % (36.0-47.0) 45.7 % (36.0-47.0) Mean Corpuscular Volume 96 fL (79-100) 98 fL (79-100) Mean Corpuscular Hemoglobin 32 pg (25-35) 31 pg (25-35) Mean Corpuscular Hemoglobin Concent 33 g/dL (31-37) 32 g/dL (31-37) Red Cell Distribution Width 15.8 % (11.5-14.5) 16.2 % (11.5-14.5) Platelet Count 193 x10^3/uL (140-400) 204 x10^3/uL (140-400) Neutrophils (%) (Auto) 94 % (31-73) 93 % (31-73) Lymphocytes (%) (Auto) 3 % (24-48) 4 % (24-48) Monocytes (%) (Auto) 3 % (0-9) 3 % (0-9) Eosinophils (%) (Auto) 0 % (0-3) 0 % (0-3) Basophils (%) (Auto) 0 % (0-3) 0 % (0-3) Neutrophils # (Auto) 11.9 x10^3/uL (1.8-7.7) 13.0 x10^3/uL (1.8-7.7) Lymphocytes # (Auto) 0.4 x10^3/uL (1.0-4.8) 0.6 x10^3/uL (1.0-4.8) Monocytes # (Auto) 0.4 x10^3/uL (0.0-1.1) 0.4 x10^3/uL (0.0-1.1) Eosinophils # (Auto) 0.0 x10^3/uL (0.0-0.7) 0.0 x10^3/uL (0.0-0.7) Basophils # (Auto) 0.0 x10^3/uL (0.0-0.2) 0.0 x10^3/uL (0.0-0.2) Sodium Level 139 mmol/L (136-145) 142 mmol/L (136-145) Potassium Level 3.1 mmol/L (3.5-5.1) 4.3 mmol/L (3.5-5.1) Chloride Level 95 mmol/L (98-107) 98 mmol/L (98-107) Carbon Dioxide Level 39 mmol/L (21-32) 44 mmol/L (21-32) Anion Gap 5 (6-14) 0 (6-14) Blood Urea Nitrogen 21 mg/dL (7-20) 29 mg/dL (7-20) Creatinine 0.9 mg/dL (0.6-1.0) 1.3 mg/dL (0.6-1.0) Estimated GFR (Cockcroft-Gault) 59.1 38.7 BUN/Creatinine Ratio 23 (6-20) 22 (6-20) Glucose Level 78 mg/dL (70-99) 99 mg/dL (70-99) Calcium Level 7.7 mg/dL (8.5-10.1) 7.9 mg/dL (8.5-10.1) Ferritin 603 ng/mL (8-252) Total Bilirubin 1.5 mg/dL (0.2-1.0) 1.4 mg/dL (0.2-1.0) Aspartate Amino Transf (AST/SGOT) 40 U/L (15-37) 24 U/L (15-37) Alanine Aminotransferase (ALT/SGPT) 18 U/L (14-59) 11 U/L (14-59) Alkaline Phosphatase 53 U/L (46-116) 47 U/L (46-116) Total Protein 5.2 g/dL (6.4-8.2) 5.1 g/dL (6.4-8.2) Albumin 1.9 g/dL (3.4-5.0) 1.8 g/dL (3.4-5.0) Albumin/Globulin Ratio 0.6 (1.0-1.7) 0.5 (1.0-1.7) O2 Saturation 87 % (92-99) Arterial Blood pH 7.48 (7.35-7.45) Arterial Blood pCO2 at Patient Temp 59 mmHg (35-46) Arterial Blood pO2 at Patient Temp 50 mmHg (65-108) Arterial Blood HCO3 42 mmol/L (21-28) Arterial Blood Base Excess 16 mmol/L (-3-3) Oxyhemoglobin 86.1 % Methemoglobin 0.5 % (0.0-1.9) Carbon Monoxide, Quantitative 0.3 % (0.0-1.9) FiO2 44 Laboratory Tests Test 05/21/21 12:35 05/22/21 02:00 05/22/21 04:30 O2 Saturation 87 % (92-99) Arterial Blood pH 7.48 (7.35-7.45) Arterial Blood pCO2 at Patient Temp 59 mmHg (35-46) Arterial Blood pO2 at Patient Temp 50 mmHg (65-108) Arterial Blood HCO3 42 mmol/L (21-28) Arterial Blood Base Excess 16 mmol/L (-3-3) Oxyhemoglobin 86.1 % Methemoglobin 0.5 % (0.0-1.9) Carbon Monoxide, Quantitative 0.3 % (0.0-1.9) FiO2 44 Sodium Level 142 mmol/L (136-145) Potassium Level 4.3 mmol/L (3.5-5.1) Chloride Level 98 mmol/L (98-107) Carbon Dioxide Level 44 mmol/L (21-32) Anion Gap 0 (6-14) Blood Urea Nitrogen 29 mg/dL (7-20) Creatinine 1.3 mg/dL (0.6-1.0) Estimated GFR (Cockcroft-Gault) 38.7 BUN/Creatinine Ratio 22 (6-20) Glucose Level 99 mg/dL (70-99) Calcium Level 7.9 mg/dL (8.5-10.1) Total Bilirubin 1.4 mg/dL (0.2-1.0) Aspartate Amino Transf (AST/SGOT) 24 U/L (15-37) Alanine Aminotransferase (ALT/SGPT) 11 U/L (14-59) Alkaline Phosphatase 47 U/L (46-116) Total Protein 5.1 g/dL (6.4-8.2) Albumin 1.8 g/dL (3.4-5.0) Albumin/Globulin Ratio 0.5 (1.0-1.7) White Blood Count 14.0 x10^3/uL (4.0-11.0) Red Blood Count 4.68 x10^6/uL (3.50-5.40) Hemoglobin 14.6 g/dL (12.0-15.5) Hematocrit 45.7 % (36.0-47.0) Mean Corpuscular Volume 98 fL (79-100) Mean Corpuscular Hemoglobin 31 pg (25-35) Mean Corpuscular Hemoglobin Concent 32 g/dL (31-37) Red Cell Distribution Width 16.2 % (11.5-14.5) Platelet Count 204 x10^3/uL (140-400) Neutrophils (%) (Auto) 93 % (31-73) Lymphocytes (%) (Auto) 4 % (24-48) Monocytes (%) (Auto) 3 % (0-9) Eosinophils (%) (Auto) 0 % (0-3) Basophils (%) (Auto) 0 % (0-3) Neutrophils # (Auto) 13.0 x10^3/uL (1.8-7.7) Lymphocytes # (Auto) 0.6 x10^3/uL (1.0-4.8) Monocytes # (Auto) 0.4 x10^3/uL (0.0-1.1) Eosinophils # (Auto) 0.0 x10^3/uL (0.0-0.7) Basophils # (Auto) 0.0 x10^3/uL (0.0-0.2) Medications Active Scripts Medications Dose Route/Sig Max Daily Dose Days Date Category Metoprolol Tartrate 25 Mg Tablet 12.5 Mg PO BID 11/17/16 Rx Lisinopril 5 Mg Tablet 5 Mg PO DAILY 11/17/16 Rx Levofloxacin 750 Mg Tablet 1 Tab PO DAILY 08/29/16 Rx Aspirin 81 Mg Tab.chew 1 Tab PO DAILY 08/29/16 Rx Impression . 1. Acute hypoxic respiratory failure secondary to COVID-19 pneumonia. 2. Abnormal chest x-ray with bilateral perihilar infiltrates, most suggestive of COVID-19 viral pneumonia. Repeat chest x-ray 05/20, no significant change 3. Increased hemoglobin and hematocrit, likely secondary to dehydration. 4. Abnormal troponin level. Plan . RECOMMENDATIONS: 1. titrate fio2 to keep saturations 90% and above. 2. dexamethasone. 3. diuresis prn 4. Improving hematocrit 5. code status DNR discussed w MAINOR Dumont MD May 22, 2021 12:30
[2021-05-22 14:26] VITALS: BP 165/77
[2021-05-22] MEDS: DEXAMETHASONE SOD PHOS 4 MG/ML VIAL IVP SCH (17:33)
[2021-05-22] MEDS: ATORVASTATIN CALCIUM 20 MG TABLET PO SCH (19:40)
[2021-05-22 19:50] VITALS: BP 152/79
[2021-05-22 23:00] VITALS: BP 155/78
[2021-05-23 03:35] VITALS: BP 160/77
[2021-05-23 07:00] VITALS: BP 172/82
--- NOTE | 2021-05-23 07:48 | PDOC ---
PULMONARY PROGRESS NOTES DATE: 05/23/21 TIME: 07:48 Subjective Patient with no new complaints currently on 5 L of oxygen supplementation Vitals Vital Signs Date Time Temp Pulse Resp B/P (MAP) Pulse Ox O2 Delivery O2 Flow Rate FiO2 05/23/21 03:35 97.6 81 20 160/77 (104) 97 Nasal Cannula 5.0 97.6 Lungs: Clear Cardiovascular: S1, S2 Abdomen: Other Extremities: No Edema Skin: No Rashes Labs Laboratory Tests Test 05/21/21 08:30 05/21/21 12:35 05/22/21 02:00 05/22/21 04:30 White Blood Count 12.6 x10^3/uL (4.0-11.0) 14.0 x10^3/uL (4.0-11.0) Red Blood Count 4.81 x10^6/uL (3.50-5.40) 4.68 x10^6/uL (3.50-5.40) Hemoglobin 15.2 g/dL (12.0-15.5) 14.6 g/dL (12.0-15.5) Hematocrit 46.3 % (36.0-47.0) 45.7 % (36.0-47.0) Mean Corpuscular Volume 96 fL (79-100) 98 fL (79-100) Mean Corpuscular Hemoglobin 32 pg (25-35) 31 pg (25-35) Mean Corpuscular Hemoglobin Concent 33 g/dL (31-37) 32 g/dL (31-37) Red Cell Distribution Width 15.8 % (11.5-14.5) 16.2 % (11.5-14.5) Platelet Count 193 x10^3/uL (140-400) 204 x10^3/uL (140-400) Neutrophils (%) (Auto) 94 % (31-73) 93 % (31-73) Lymphocytes (%) (Auto) 3 % (24-48) 4 % (24-48) Monocytes (%) (Auto) 3 % (0-9) 3 % (0-9) Eosinophils (%) (Auto) 0 % (0-3) 0 % (0-3) Basophils (%) (Auto) 0 % (0-3) 0 % (0-3) Neutrophils # (Auto) 11.9 x10^3/uL (1.8-7.7) 13.0 x10^3/uL (1.8-7.7) Lymphocytes # (Auto) 0.4 x10^3/uL (1.0-4.8) 0.6 x10^3/uL (1.0-4.8) Monocytes # (Auto) 0.4 x10^3/uL (0.0-1.1) 0.4 x10^3/uL (0.0-1.1) Eosinophils # (Auto) 0.0 x10^3/uL (0.0-0.7) 0.0 x10^3/uL (0.0-0.7) Basophils # (Auto) 0.0 x10^3/uL (0.0-0.2) 0.0 x10^3/uL (0.0-0.2) Sodium Level 139 mmol/L (136-145) 142 mmol/L (136-145) Potassium Level 3.1 mmol/L (3.5-5.1) 4.3 mmol/L (3.5-5.1) Chloride Level 95 mmol/L (98-107) 98 mmol/L (98-107) Carbon Dioxide Level 39 mmol/L (21-32) 44 mmol/L (21-32) Anion Gap 5 (6-14) 0 (6-14) Blood Urea Nitrogen 21 mg/dL (7-20) 29 mg/dL (7-20) Creatinine 0.9 mg/dL (0.6-1.0) 1.3 mg/dL (0.6-1.0) Estimated GFR (Cockcroft-Gault) 59.1 38.7 BUN/Creatinine Ratio 23 (6-20) 22 (6-20) Glucose Level 78 mg/dL (70-99) 99 mg/dL (70-99) Calcium Level 7.7 mg/dL (8.5-10.1) 7.9 mg/dL (8.5-10.1) Ferritin 603 ng/mL (8-252) Total Bilirubin 1.5 mg/dL (0.2-1.0) 1.4 mg/dL (0.2-1.0) Aspartate Amino Transf (AST/SGOT) 40 U/L (15-37) 24 U/L (15-37) Alanine Aminotransferase (ALT/SGPT) 18 U/L (14-59) 11 U/L (14-59) Alkaline Phosphatase 53 U/L (46-116) 47 U/L (46-116) Total Protein 5.2 g/dL (6.4-8.2) 5.1 g/dL (6.4-8.2) Albumin 1.9 g/dL (3.4-5.0) 1.8 g/dL (3.4-5.0) Albumin/Globulin Ratio 0.6 (1.0-1.7) 0.5 (1.0-1.7) O2 Saturation 87 % (92-99) Arterial Blood pH 7.48 (7.35-7.45) Arterial Blood pCO2 at Patient Temp 59 mmHg (35-46) Arterial Blood pO2 at Patient Temp 50 mmHg (65-108) Arterial Blood HCO3 42 mmol/L (21-28) Arterial Blood Base Excess 16 mmol/L (-3-3) Oxyhemoglobin 86.1 % Methemoglobin 0.5 % (0.0-1.9) Carbon Monoxide, Quantitative 0.3 % (0.0-1.9) FiO2 44 Medications Active Scripts Medications Dose Route/Sig Max Daily Dose Days Date Category Metoprolol Tartrate 25 Mg Tablet 12.5 Mg PO BID 11/17/16 Rx Lisinopril 5 Mg Tablet 5 Mg PO DAILY 11/17/16 Rx Levofloxacin 750 Mg Tablet 1 Tab PO DAILY 08/29/16 Rx Aspirin 81 Mg Tab.chew 1 Tab PO DAILY 08/29/16 Rx Impression . 1. Acute hypoxic respiratory failure secondary to COVID-19 pneumonia. 2. Abnormal chest x-ray with bilateral perihilar infiltrates, most suggestive of COVID-19 viral pneumonia. Repeat chest x-ray 05/20, no significant change 3. Increased hemoglobin and hematocrit, likely secondary to dehydration. 4. Abnormal troponin level. Plan . 05/23 Continue steroids Oxygen supplementation Diurese as needed Slowly improving Patient is a DNR RECOMMENDATIONS: 1. titrate fio2 to keep saturations 90% and above. 2. dexamethasone. 3. diuresis prn 4. Improving hematocrit 5. code status DNR discussed w CATALINA Alfonso MD May 23, 2021 07:48
--- NOTE | 2021-05-23 10:00 | NUR ---
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 Pt reminded the need for constant monitoring. Pt does have dementia and is unaware of situation and place. Constant reinforcement needed. Pt in bed with alarm on and call light in reach.
[2021-05-23] MEDS: PANTOPRAZOLE 40 MG TABLET.DR. PO SCH (10:20)
[2021-05-23] MEDS: METOPROLOL SUCC 24HR ER 25 MG TAB.ER.24H. PO SCH (10:20)
[2021-05-23] MEDS: LISINOPRIL 20 MG TABLET PO SCH (10:20)
[2021-05-23] MEDS: ASPIRIN ENTERIC COATED 81 MG TABLET.DR. PO SCH (10:20)
[2021-05-23] MEDS: POTASSIUM CHLORIDE 20 MEQ TABLET.ER. PO SCH (10:21)
[2021-05-23] MEDS: FUROSEMIDE 40 MG TABLET. PO SCH (10:21)
[2021-05-23] MEDS: DEXAMETHASONE SOD PHOS 4 MG/ML VIAL IVP SCH (10:21)
--- NOTE | 2021-05-23 10:46 | PDOC ---
Date of Service: DATE: 05/23/21 TIME: 10:41 Objective: Objective: D/w nurse - no bleeding, no GI concerns, confused. Hgb 14.6 yesterday. Vital Signs: Vital Signs Date Time Temp Pulse Resp B/P (MAP) Pulse Ox O2 Delivery O2 Flow Rate FiO2 05/23/21 10:20 85 172/82 05/23/21 07:00 96.8 16 99 Nasal Cannula 5.0 96.8 Labs: BLOOD CULTURE Final NO GROWTH AFTER 5 DAYS PE: GEN: in COVID isolation, exam deferred A/P: COVID pneumonia, CHF, DEMETRI, dementia Hematochezia - prior to admission, Hgb remains normal Benign liver lesions -- Remains stable GI-santoyo. Justicifation of Admission Dx: Justifications for Admission: Justification of Admission Dx: Yes Sepsis: Hypoxemia DANIELITO SANCHEZ May 23, 2021 10:46
[2021-05-23 11:00] VITALS: BP 149/66
--- NOTE | 2021-05-23 11:13 | PDOC ---
JUDE JOHNSON APRN 05/23/21 1113: CARDIO Progress Notes Date and Time Date of Service 05/23/21 Time of Evaluation 1110 Subjective Subjective: Other (no complaints ) Vitals Vitals Vital Signs Date Time Temp Pulse Resp B/P (MAP) Pulse Ox O2 Delivery O2 Flow Rate FiO2 05/23/21 10:20 85 172/82 05/23/21 07:00 96.8 16 99 Nasal Cannula 5.0 96.8 Weight Weight [ ] Input and Output Intake and Output Intake and Output 05/23/21 07:00 Intake Total 400 ml Balance 400 ml Intake Oral 400 ml # Voids 1 # Bowel Movements 1 Microbiology Micro Microbiology 05/17/21 Blood Culture - Final, Complete NO GROWTH AFTER 5 DAYS Physical Exam HEENT: Neck Supple W Full Motion Chest: Symmetric LUNGS: Other (on NC) Heart: RRR, no gallops Extremities: No Edema Neurology: alert, follow commands, confused Assessment Assessment 1. Acute respiratory failure secondary to COVID PNA 2. Mild troponin elevation; most probably type II, demand ischemia in setting of above. 3. Acute on chronic systolic CHF, cardiomyopathy; Echo 2016 with LVEF 20-25%. appears compensated 4. Hypertensive urgency; labile 5 . Hyperlipidemia 6. Hematochezia; most probably hemorrhoidal bleeding. H and H stable 7. LBBB 8. Arrhythmia; bursts of NSVT versus AFIB noted on tele. Otherwise, SR Recommendations ASA therapy Increase lisinopril for better BP control Metoprolol for rate control. Additional IV PRN Check Mg and replace as warranted HF optimization with Toprol, lisinopril Ongoing lung optimization, treatment of COVID Supportive care Justicifation of Admission Dx: Justifications for Admission: Justification of Admission Dx: Yes Sepsis: Hypoxemia KARTIK FIERRO MD 05/24/21 0843: CARDIO Progress Notes Assessment Assessment Patient evaluated 05/23/2021. Agree with ICING MAKER's assessment and plan. Slight troponin elevation probably demand ischemia. Acute on chronic diastolic heart failure better compensated. Agree with increasing lisinopril dose for better blood pressure control. JUDE JOHNSON APRN May 23, 2021 11:13 KARTIK FIERRO MD May 24, 2021 08:43
--- NOTE | 2021-05-23 11:59 | PDOC ---
[facility] PROGRESS NOTE Date of Service DOS: DATE: 05/23/21 TIME: 11:49 Chief Complaint Chief Complaint COVID-19 Pneumonia Malnutrition Hypoxia Non-ST elevated acute myocardial infarction DEMETRI Hypokalemia CHF Edema Rectosigmoid diverticulosis Mild effusions History of Present Illness History of Present Illness 05/23/2021 89 yo F pt was seen an examined. Resting w/ NAD. IV potassium and O2 via NC running. Chart reviewed. Vitals/I&O Vitals/I&O: Vital Signs Date Time Temp Pulse Resp B/P (MAP) Pulse Ox O2 Delivery O2 Flow Rate FiO2 05/23/21 11:00 97.2 85 18 149/66 (93) 96 Nasal Cannula 6.0 97.2 I & O 05/22/21 05/22/21 05/23/21 15:00 23:00 07:00 Intake Total 0 ml 400 ml Balance 0 ml 400 ml Physical Exam Physical Exam: lethargic General: Alert, Cooperative, No acute distress, Other (alert to person ) Heart: Regular rate (SR with LBBB), Normal S1 Lungs: Clear Abdomen: Normal bowel sounds, Soft, No tenderness Extremities: No clubbing, No cyanosis, No edema Skin: No rashes, No significant lesion Assessment and Plan Assessmemt and Plan COVID-19 Pneumonia Malnutrition Hypoxia Non-ST elevated acute myocardial infarction DEMETRI Hypokalemia CHF Edema Rectosigmoid diverticulosis Mild effusions Plan Covid protocol Cardiac monitoring Home meds DVT prophylaxis Appreciate subspecialist input. (Pulmonary cardiology nephrology and GI following) DNR Comment Review of Relevant I have reviewed the following items brenton (where applicable) has been applied. Justifications for Admission Other Justification RIGO CHING III DO May 23, 2021 11:59
[2021-05-23 15:00] VITALS: BP 184/88
--- NOTE | 2021-05-23 18:10 | NUR ---
Wound Care Wound Type/Assessment: Consult to eval and treat new wound found on coccyx. Per RN report, pt was combative on admission and over the weekend, impairing nurse ability to assess skin. Pt is of advanced age, very underweight, and having very little natural cushion to protect from skin breakdown. She is able to turn with little physical assistance, but is often too sleepy to offload reliably. Coccyx wound is unstageable due to slough coverage in the wound base, margins bright red and blanchable. R trochanter DTI is purple, nonblanchable, with a small superficial open area centrally. The open area is small and linear, like a scratch, with a pale pink base; considering this wound STII pressure area due to location within DTI. No other open areas noted on head to toe assessment, although heels are soft and boggy, but blanchable. L great toe is purple and non blanchable, but inconsistent with pressure and considered to be a covid-19 related skin change. Treatment Recommendations/Plan: Coccyx: Keep eda-area clean and dry. Apply barrier cream BID. No brief, turn Q2H R trochanter: Apply skin prep and protect with foam dressing. Change every 3 days. Heels: Apply foam dressings for protection and check heels daily. Education provided: Pt is drowsy and inappropriate for education at this time. Offloading surface/device: Recommend P500 mattress. Turned Left with purple wedge, heels floated on pillows. Recommended Referrals/Tests: NA Discharge Recommendations for dressings: As above.
[2021-05-23] MEDS ORDERED: MAGNESIUM SULFATE 2GM 50 ML IV ONE (19:30)
[2021-05-23] MEDS: ATORVASTATIN CALCIUM 20 MG TABLET PO SCH (19:35)
[2021-05-23 19:50] VITALS: BP 162/84
[2021-05-23 23:30] VITALS: BP 166/88
[2021-05-24 03:00] VITALS: BP 147/78
[2021-05-24 07:00] VITALS: BP 114/59
--- NOTE | 2021-05-24 08:29 | PDOC ---
CARDIO Progress Notes Date and Time Date of Service 05/24/21 Time of Evaluation 1110 Subjective Subjective: Other (sleeping soundly ) Vitals Vitals Vital Signs Date Time Temp Pulse Resp B/P (MAP) Pulse Ox O2 Delivery O2 Flow Rate FiO2 05/24/21 07:00 97.3 67 18 114/59 (77) 99 Nasal Cannula 6.0 97.3 Weight Weight [ ] Input and Output Intake and Output Intake and Output 05/24/21 07:00 Intake Total 250 ml Balance 250 ml Intake Oral 200 ml IV Total 50 ml # Voids 2 Microbiology Micro Microbiology 05/17/21 Blood Culture - Final, Complete NO GROWTH AFTER 5 DAYS Physical Exam Chest: Symmetric LUNGS: Other (on NC) Heart: RRR (SR with LBBB) Abdomen: Other (soft ) Extremities: No Edema Neurology: other (sleeping ) Assessment Assessment 1. Acute respiratory failure secondary to COVID PNA 2. Mild troponin elevation; most probably type II, demand ischemia in setting of above. 3. Acute on chronic systolic CHF, cardiomyopathy; Echo 2016 with LVEF 20-25%. appears compensated 4. Hypertensive urgency; labile 5 . Hyperlipidemia 6. Hematochezia; most probably hemorrhoidal bleeding. H and H stable 7. LBBB 8. Arrhythmia; bursts of NSVT versus AFIB noted on tele 05/23. Otherwise, SR 9. Hypokalemia, hypomagnesemia; replaced Recommendations ASA therapy Metoprolol for rate control. HF optimization with Toprol, lisinopril Ongoing lung optimization, treatment of COVID Supportive care Family considering resumption of Hospice services Justicifation of Admission Dx: Justifications for Admission: Justification of Admission Dx: Yes Sepsis: Hypoxemia JUDE JOHNSON APRN May 24, 2021 08:29
[2021-05-24] MEDS: POTASSIUM CHLORIDE 20 MEQ TABLET.ER. PO SCH (08:34)
[2021-05-24] MEDS: ASPIRIN ENTERIC COATED 81 MG TABLET.DR. PO SCH (08:34)
[2021-05-24] MEDS: FUROSEMIDE 40 MG TABLET. PO SCH (08:34)
[2021-05-24] MEDS: METOPROLOL SUCC 24HR ER 25 MG TAB.ER.24H. PO SCH (08:34)
[2021-05-24] MEDS: PANTOPRAZOLE 40 MG TABLET.DR. PO SCH (08:34)
[2021-05-24] MEDS: LISINOPRIL 20 MG TABLET PO SCH (08:45)
[2021-05-24] MEDS: DEXAMETHASONE SOD PHOS 4 MG/ML VIAL IVP SCH (08:49)
--- NOTE | 2021-05-24 09:01 | PDOC ---
PULMONARY PROGRESS NOTES DATE: 05/24/21 TIME: 09:00 Subjective Patient with no evidence of respiratory distress, currently on 6 L Vitals Vital Signs Date Time Temp Pulse Resp B/P (MAP) Pulse Ox O2 Delivery O2 Flow Rate FiO2 05/24/21 08:45 67 114/59 05/24/21 07:00 97.3 18 99 Nasal Cannula 6.0 97.3 Lungs: Clear Cardiovascular: S1, S2 Abdomen: Other Extremities: No Edema Skin: No Rashes Labs Laboratory Tests Test 05/23/21 02:00 Magnesium Level 1.6 mg/dL (1.8-2.4) Thyroid Stimulating Hormone (TSH) 1.282 uIU/mL (0.358-3.74) Medications Active Scripts Medications Dose Route/Sig Max Daily Dose Days Date Category Metoprolol Tartrate 25 Mg Tablet 12.5 Mg PO BID 11/17/16 Rx Lisinopril 5 Mg Tablet 5 Mg PO DAILY 11/17/16 Rx Levofloxacin 750 Mg Tablet 1 Tab PO DAILY 08/29/16 Rx Aspirin 81 Mg Tab.chew 1 Tab PO DAILY 08/29/16 Rx Impression . 1. Acute hypoxic respiratory failure secondary to COVID-19 pneumonia. 2. Abnormal chest x-ray with bilateral perihilar infiltrates, most suggestive of COVID-19 viral pneumonia. Repeat chest x-ray 05/20, no significant change 3. Increased hemoglobin and hematocrit, likely secondary to dehydration. 4. Abnormal troponin level. Plan . Updated 05/24 Continue current steroids continue oxygen supplementation Patient DNI DVT GI prophylax 05/23 Continue steroids Oxygen supplementation Diurese as needed Slowly improving Patient is a DNR RECOMMENDATIONS: 1. titrate fio2 to keep saturations 90% and above. 2. dexamethasone. 3. diuresis prn 4. Improving hematocrit 5. code status DNR discussed w CATALINA Alfonso MD May 24, 2021 09:01
[2021-05-24 09:51] LABS: CALCIUM 8.4 mg/dL (8.5-10.1); CREATININE 1.3 mg/dL (0.6-1.0); GFR 38.7; MAGNESIUM 2.5 mg/dL (1.8-2.4); POTASSIUM 3.6 mmol/L (3.5-5.1)
[2021-05-24 10:08] VITALS: BP 124/60
--- NOTE | 2021-05-24 10:14 | PDOC ---
Date of Service: DATE: 05/24/21 TIME: 10:12 Objective: Vital Signs: Vital Signs Date Time Temp Pulse Resp B/P (MAP) Pulse Ox O2 Delivery O2 Flow Rate FiO2 05/24/21 10:08 97.6 75 16 124/60 (81) 98 Nasal Cannula 6.0 97.6 Labs: Laboratory Tests Test 05/24/21 09:20 Sodium Level 136 mmol/L Potassium Level 3.6 mmol/L Chloride Level 92 mmol/L Carbon Dioxide Level 37 mmol/L Anion Gap 7 Blood Urea Nitrogen 36 mg/dL Creatinine 1.3 mg/dL Estimated GFR (Cockcroft-Gault) 38.7 Glucose Level 98 mg/dL Calcium Level 8.4 mg/dL Magnesium Level 2.5 mg/dL PE: GEN: COVID isolation - visual exam done LUNGS: NC 6L HEART: RR per chart ABD: non-distended NEURO/PSYCH: awake, seems pretty focused on tv A/P: COVID pneumonia Hematochezia (resolved last week), benign liver lesions -- Remains stable GI-santoyo. Justicifation of Admission Dx: Justifications for Admission: Justification of Admission Dx: Yes Sepsis: Hypoxemia DANIELITO SANCHEZ May 24, 2021 10:14
--- NOTE | 2021-05-24 13:41 | PDOC ---
[facility] PROGRESS NOTE Date of Service DOS: DATE: 05/24/21 TIME: 13:40 Chief Complaint Chief Complaint COVID-19 Pneumonia Malnutrition Hypoxia Non-ST elevated acute myocardial infarction DEMETRI Hypokalemia CHF Edema Rectosigmoid diverticulosis Mild effusions History of Present Illness History of Present Illness 05/24/2021 Patient seen and examined [place] resting with no apparent distress Chart reviewed Discussed with RN 05/23/2021 89 yo F pt was seen an examined. Resting w/ NAD. IV potassium and O2 via NC running. Chart reviewed. Vitals/I&O Vitals/I&O: Vital Signs Date Time Temp Pulse Resp B/P (MAP) Pulse Ox O2 Delivery O2 Flow Rate FiO2 05/24/21 10:08 97.6 75 16 124/60 (81) 98 Nasal Cannula 6.0 97.6 I & O 05/23/21 05/23/21 05/24/21 15:00 23:00 07:00 Intake Total 50 ml 200 ml Balance 50 ml 200 ml Physical Exam Physical Exam: lethargic General: Alert, Cooperative, No acute distress, Other (alert to person ) Heart: Regular rate (SR with LBBB), Normal S1 Lungs: Clear Abdomen: Normal bowel sounds, Soft, No tenderness Extremities: No clubbing, No cyanosis, No edema Skin: No rashes, No significant lesion Labs Labs: Laboratory Tests Test 05/24/21 09:20 Sodium Level 136 mmol/L (136-145) Potassium Level 3.6 mmol/L (3.5-5.1) Chloride Level 92 mmol/L (98-107) Carbon Dioxide Level 37 mmol/L (21-32) Anion Gap 7 (6-14) Blood Urea Nitrogen 36 mg/dL (7-20) Creatinine 1.3 mg/dL (0.6-1.0) Estimated GFR (Cockcroft-Gault) 38.7 Glucose Level 98 mg/dL (70-99) Calcium Level 8.4 mg/dL (8.5-10.1) Magnesium Level 2.5 mg/dL (1.8-2.4) Assessment and Plan Assessmemt and Plan Problems Medical Problems: (1) DEMETRI (acute kidney injury) Status: Acute (2) COVID-19 Status: Acute (3) Hypoxia Status: Acute (4) NSTEMI (non-ST elevated myocardial infarction) Status: Acute (5) Person under investigation for COVID-19 Status: Acute COVID-19 Pneumonia Malnutrition Hypoxia Non-ST elevated acute myocardial infarction DEMETRI Hypokalemia CHF Edema Rectosigmoid diverticulosis Mild effusions Plan Covid protocol Cardiac monitoring Home meds DVT prophylaxis Appreciate subspecialist input. (Pulmonary cardiology nephrology and GI following) DNR Comment Review of Relevant I have reviewed the following items brenton (where applicable) has been applied. Medications: Current Medications Medications (Trade) Dose Ordered Sig/Brice Route PRN Reason Start Time Stop Time Status Last Admin Dose Admin Lisinopril (Prinivil) 40 mg DAILY PO 05/24/21 09:00 05/24/21 08:45 Magnesium Sulfate 50 ml @ 25 mls/hr 1X ONCE IV 05/23/21 19:30 05/23/21 21:29 DC 05/23/21 19:35 Justifications for Admission Other Justification RIGO CHING III DO May 24, 2021 13:41
--- NOTE | 2021-05-24 15:11 | NUR ---
SS following up with discharge planning. SS reviewed pt chart and discussed with pt RN. Pt is currently requiring oxygen at six liters nasal canula. COVID19 positive. Pt on IV Decadron. Physician and RN spoke with family and discussed goals of care. Lucita Reeves, , is requesting home with hospice at this time. ([address] [place] [address]) Pt's niece reported having no preference of company. SS phoned and faxed referral to [facility], ; fax [phone]. SS will continue to follow for discharge planning.
[2021-05-24 15:21] VITALS: BP 152/67
[2021-05-24 19:30] VITALS: BP_SYST 143; BP_SYST 156; BP_DIAS 67; BP_DIAS 86
[2021-05-24] MEDS: ATORVASTATIN CALCIUM 20 MG TABLET PO SCH (19:40)
[2021-05-24 22:18] VITALS: BP 169/94
[2021-05-25 07:00] VITALS: BP 158/76
[2021-05-25] MEDS: ASPIRIN ENTERIC COATED 81 MG TABLET.DR. PO SCH (08:23)
[2021-05-25] MEDS: METOPROLOL SUCC 24HR ER 25 MG TAB.ER.24H. PO SCH (08:24)
[2021-05-25] MEDS: POTASSIUM CHLORIDE 20 MEQ TABLET.ER. PO SCH (08:24)
[2021-05-25] MEDS: PANTOPRAZOLE 40 MG TABLET.DR. PO SCH (08:25)
[2021-05-25] MEDS: FUROSEMIDE 40 MG TABLET. PO SCH (08:25)
[2021-05-25] MEDS ORDERED: methylPREDNISolone 4 MG TABLET. PO SCH ×2 (09:00→09:30)
[2021-05-25] MEDS: LISINOPRIL 20 MG TABLET PO SCH (09:00)
[2021-05-25] MEDS: methylPREDNISolone 4 MG TABLET. PO SCH ×2 (09:16→16:29)
--- NOTE | 2021-05-25 09:21 | PDOC ---
PULMONARY PROGRESS NOTES DATE: 05/25/21 TIME: 09:21 Subjective Patient with no evidence of respiratory distress, currently on 6 L Vitals Vital Signs Date Time Temp Pulse Resp B/P (MAP) Pulse Ox O2 Delivery O2 Flow Rate FiO2 05/25/21 09:00 70 158/76 05/25/21 07:00 97.6 18 95 Nasal Cannula 4.0 97.6 Lungs: Clear Cardiovascular: S1, S2 Abdomen: Other Extremities: No Edema Skin: No Rashes Labs Laboratory Tests Test 05/24/21 09:20 Sodium Level 136 mmol/L (136-145) Potassium Level 3.6 mmol/L (3.5-5.1) Chloride Level 92 mmol/L (98-107) Carbon Dioxide Level 37 mmol/L (21-32) Anion Gap 7 (6-14) Blood Urea Nitrogen 36 mg/dL (7-20) Creatinine 1.3 mg/dL (0.6-1.0) Estimated GFR (Cockcroft-Gault) 38.7 Glucose Level 98 mg/dL (70-99) Calcium Level 8.4 mg/dL (8.5-10.1) Magnesium Level 2.5 mg/dL (1.8-2.4) Medications Active Scripts Medications Dose Route/Sig Max Daily Dose Days Date Category Metoprolol Tartrate 25 Mg Tablet 12.5 Mg PO BID 11/17/16 Rx Lisinopril 5 Mg Tablet 5 Mg PO DAILY 11/17/16 Rx Levofloxacin 750 Mg Tablet 1 Tab PO DAILY 08/29/16 Rx Aspirin 81 Mg Tab.chew 1 Tab PO DAILY 08/29/16 Rx Impression . 1. Acute hypoxic respiratory failure secondary to COVID-19 pneumonia. 2. Abnormal chest x-ray with bilateral perihilar infiltrates, most suggestive of COVID-19 viral pneumonia. Repeat chest x-ray 05/20, no significant change 3. Increased hemoglobin and hematocrit, likely secondary to dehydration. 4. Abnormal troponin level. Plan . 05/25 d/w RN dc home with hospice out of hospital DNR signed Updated 05/24 Continue current steroids continue oxygen supplementation Patient DNI DVT GI prophylax 05/23 Continue steroids Oxygen supplementation Diurese as needed Slowly improving Patient is a DNR RECOMMENDATIONS: 1. titrate fio2 to keep saturations 90% and above. 2. dexamethasone. 3. diuresis prn 4. Improving hematocrit 5. code status DNR discussed w rn SISILLO,SABATO MD May 25, 2021 09:21
--- NOTE | 2021-05-25 09:27 | PDOC ---
[employer] PROGRESS NOTE Date of Service DOS: DATE: 05/25/21 TIME: 09:21 Chief Complaint Chief Complaint COVID-19 Pneumonia Malnutrition Hypoxia Non-ST elevated acute myocardial infarction DEMETRI Hypokalemia CHF Edema Rectosigmoid diverticulosis Mild effusions History of Present Illness History of Present Illness 05/25/21: Pt was seen and examined. Pt resting comfortably in NAD. Chart reviewed. Discussed with RN. Vitals/I&O Vitals/I&O: Vital Signs Date Time Temp Pulse Resp B/P (MAP) Pulse Ox O2 Delivery O2 Flow Rate FiO2 05/25/21 09:00 70 158/76 05/25/21 07:00 97.6 18 95 Nasal Cannula 4.0 97.6 I & O 05/24/21 05/24/21 05/25/21 15:00 23:00 07:00 Intake Total 340 ml 240 ml 100 ml Output Total 400 ml Balance 340 ml 240 ml -300 ml Physical Exam General: Alert, Cooperative, No acute distress, Other (alert to person ) Heart: Regular rate, Normal S1, Normal S2, Other (soft heart sounds) Lungs: Clear Abdomen: Normal bowel sounds, Soft, No tenderness Extremities: No clubbing, No cyanosis, No edema Skin: No rashes, No significant lesion Review of Systems Review of Systems: Fatigue SOA Assessment and Plan Assessmemt and Plan Problems Medical Problems: (1) DEMETRI (acute kidney injury) Status: Acute (2) COVID-19 Status: Acute (3) Hypoxia Status: Acute (4) NSTEMI (non-ST elevated myocardial infarction) Status: Acute (5) Person under investigation for COVID-19 Status: Acute COVID-19 Pneumonia Malnutrition Hypoxia Non-ST elevated acute myocardial infarction DEMETRI Hypokalemia CHF Edema Rectosigmoid diverticulosis Mild effusions Plan: We hope to discharge home with hospice later today For now continue the following; Medrol dose pack Stop IV steroids Cardiac monitoring Covid Protocol Appreciate sub specialty input Home Meds DVT prophylaxis DNR Comment Review of Relevant I have reviewed the following items brenton (where applicable) has been applied. Medications: Current Medications Medications (Trade) Dose Ordered Sig/Brice Route PRN Reason Start Time Stop Time Status Last Admin Dose Admin Methylprednisolone (Medrol) 8 mg BID PO 05/25/21 09:00 05/25/21 21:01 05/25/21 09:00 Methylprednisolone (Medrol) 4 mg BIDPCLD PO 05/25/21 12:30 05/25/21 17:31 05/25/21 09:16 Justifications for Admission Other Justification RIGO CHING III DO May 25, 2021 09:27
--- NOTE | 2021-05-25 09:33 | PDOC ---
Date of Service: DATE: 05/25/21 TIME: 09:31 Objective: Objective: Per SS note, family interested in DC home w/ Hospice. D/w nurse yesterday - pt not interested in eating. Vital Signs: Vital Signs Date Time Temp Pulse Resp B/P (MAP) Pulse Ox O2 Delivery O2 Flow Rate FiO2 05/25/21 09:00 70 158/76 05/25/21 08:00 Nasal Cannula 4.0 05/25/21 07:00 97.6 18 95 97.6 PE: GEN: in COVID isolation, exam deferred LUNGS: 4L NC HEART: RR A/P: COVID pneumonia CHF Anorexia Dementia -- Seems plans for hospice. Justicifation of Admission Dx: Justifications for Admission: Justification of Admission Dx: Yes Sepsis: Hypoxemia DANIELITO SANCHEZ May 25, 2021 09:33
[2021-05-25 11:05] VITALS: BP 119/59
--- NOTE | 2021-05-25 12:13 | SNU/HH DC ---
DISCHARGE ORDERS DISCHARGE INFORMATION: FINAL DIAGNOSIS Problems Medical Problems: (1) DEMETRI (acute kidney injury) Status: Acute (2) COVID-19 Status: Acute (3) Hypoxia Status: Acute (4) NSTEMI (non-ST elevated myocardial infarction) Status: Acute (5) Person under investigation for COVID-19 Status: Acute CONDITION ON DISCHARGE: Stable CODE STATUS: Code Status: DNR/DNI MCC: SNF STAY <30 DAYS: No HOSPICE: HOSPICE: Yes HOSPICE EVAL & TREAT: Yes LTAC: ADMIT TO LTAC: No POST DISCHARGE ORDERS: WEIGHT BEARING STATUS: As tolerated DIET AFTER DISCHARGE: Cardiac WOUND/INCISION CARE: No wound care needed DISCHARGE MEDICATIONS: Home Meds Active Scripts Metoprolol Tartrate (METOPROLOL TARTRATE) 25 Mg Tablet, 12.5 MG PO BID, #60 TAB Prov:LORENA MORRIS MD 11/17/16 Lisinopril (LISINOPRIL) 5 Mg Tablet, 5 MG PO DAILY, #30 TAB Prov:LORENA MORRIS MD 11/17/16 Levofloxacin (LEVOFLOXACIN) 750 Mg Tablet, 1 TAB PO DAILY, #10 TAB Prov:DANIEL WASHINGTON MD 08/29/16 Aspirin (ASPIRIN) 81 Mg Tab.chew, 1 TAB PO DAILY, #14 TAB 3 Refills Prov:DANIEL WASHINGTON MD 08/29/16 Discontinued Scripts Furosemide (LASIX) 40 Mg Tablet, 1 TAB PO DAILY, #14 TAB 1 Refill Prov:DANIEL WASHINGTON MD 08/29/16 RIGO CHING III DO May 25, 2021 12:13
--- NOTE | 2021-05-25 12:37 | DS ---
DATE OF DISCHARGE: 05/25/2021 ADMITTING DIAGNOSES: 1. COVID-19 pneumonia with respiratory failure. 2. Dementia. 3. Acute kidney injury. DISCHARGE DIAGNOSES: 1. Resolving COVID-19 pneumonia, resolving respiratory failure. 2. Progressive dementia. 3. Malnutrition. 4. Hypertension. 5. Peptic ulcer disease. 6. Hyperlipidemia. 7. Chronic obstructive pulmonary disease. 8. Osteoarthritis. CONSULTS: Pulmonary Medicine, GI, Cardiology and Nephrology. HOSPITAL COURSE: The patient is a pleasant elderly female who has dementia and presented with respiratory failure. She was admitted. She tested positive for COVID-19. She was treated with IV antibiotics and steroids and COVID protocol. The above consults were obtained. Over the past couple of days, she seems to have plateaued. She is very malnourished, very weak and frail, appears to probably be failing to thrive. She actually was on hospice in the past. I spoke with her daughter yesterday Lucita. Lucita agrees to arrange for hospice. The patient is going home with [facility] today. DISPOSITION: Home with [facility]. ACTIVITY: Bed rest. DIET: Low sodium. MEDICATIONS: Medrol Dosepak, aspirin 81 a day, Levaquin 750 a day, lisinopril 5 a day, metoprolol 12.5 b.i.d. and we will let the hospice team assume her comfort meds. TOTAL TIME: [address]: Emiliano TID: [id number]
--- NOTE | 2021-05-25 13:25 | NUR ---
SS following up with discharge planning. SS reviewed pt chart and discussed with pt RN. Pt is currently requiring oxygen at four liters nasal canula. COVID19 positive. Consents signed for [facility], ; fax [phone]. Discharge orders received and phoned and faxed to [facility]. Pt will discharge today and return to home with niece at 1630 via [facility] ambulance, . Pt, pt's RN, and pt's niece notified. Packet and ambulance form placed on the chart.
[2021-05-25 15:00] VITALS: BP 124/62
[2021-05-26] MEDS ORDERED: methylPREDNISolone 4 MG TABLET. PO SCH ×2 (08:30→21:00)
[2021-05-27] MEDS ORDERED: methylPREDNISolone 4 MG TABLET. PO SCH (09:00)
[2021-05-28] MEDS ORDERED: methylPREDNISolone 4 MG TABLET. PO SCH (09:00)
[2021-05-29] MEDS ORDERED: methylPREDNISolone 4 MG TABLET. PO SCH (09:00)
[2021-05-30] MEDS ORDERED: methylPREDNISolone 4 MG TABLET. PO SCH (09:00)
== END 2021-05-25 17:00 | disposition hospice, home (50) | DRG 177 ==
LOC: ER 15:58 → 6 SOUTH 17:45
PROVIDERS: ADMIT Family Medicine; ATTEND Family Medicine
PROC: 5A0935A Assistance with Respiratory Ventilation, Less than 24 Consecutive Hours, High Flow/Velocity Cannula (ICD-10-PCS; principal; 2021-05-17)
DX: U07.1 COVID-19 (principal); J96.01 Acute respiratory failure with hypoxia; J12.82 Pneumonia due to coronavirus disease 2019; I21.4 Non-ST elevation (NSTEMI) myocardial infarction; G93.41 Metabolic encephalopathy; E43 Unspecified severe protein-calorie malnutrition; I50.43 Acute on chronic combined systolic (congestive) and diastolic (congestive) heart failure; I42.9 Cardiomyopathy, unspecified; J44.0 Chronic obstructive pulmonary disease with (acute) lower respiratory infection; J98.11 Atelectasis; N17.9 Acute kidney failure, unspecified; I47.2 Ventricular tachycardia; E03.9 Hypothyroidism, unspecified; E78.5 Hyperlipidemia, unspecified; E83.42 Hypomagnesemia; E86.0 Dehydration; E87.6 Hypokalemia; F03.90 Unspecified dementia, unspecified severity, without behavioral disturbance, psychotic disturbance, mood disturbance, and anxiety; I11.0 Hypertensive heart disease with heart failure; I16.0 Hypertensive urgency; I44.7 Left bundle-branch block, unspecified; K57.90 Diverticulosis of intestine, part unspecified, without perforation or abscess without bleeding; K64.9 Unspecified hemorrhoids; K76.89 Other specified diseases of liver; M19.90 Unspecified osteoarthritis, unspecified site; M41.9 Scoliosis, unspecified; R62.7 Adult failure to thrive; Z66 Do not resuscitate; Z79.82 Long term (current) use of aspirin; Z79.899 Other long term (current) drug therapy; Z82.49 Family history of ischemic heart disease and other diseases of the circulatory system; Z87.11 Personal history of peptic ulcer disease; E88.09 Other disorders of plasma-protein metabolism, not elsewhere classified; N28.1 Cyst of kidney, acquired
CPT/HCPCS: 36415; 36600; 71045; 74176; 80048; 80053; 80061; 80069; 81001; 82310; 82728; 82805; 83605; 83690; 83735; 83880; 84443; 84484; 85007; 85025; 85610; 85730; 87040; 87426; 93005; 94760; J0360; J1100; J3475; J3480; J7509; 99285-25; G0378

== ENCOUNTER 2021-05-27 09:14 | Emergency (ER) | payer MEDICARE ==
[~2021-05-27] VITALS: Ht 167.6 cm; Wt 36.0 kg
[2021-05-27 09:23] VITALS: BP 181/130
--- NOTE | 2021-05-27 09:23 | PHYS DOC ---
Past Medical History Past Medical History: Hypertension Additional Past Medical Histor: BLEEDING ULCERS Past Surgical History: No Surgical History Smoking Status: Unknown if ever smoked Alcohol Use: None Drug Use: None Adult General HPI HPI Patient is a 89 year old female who presents with need for basic care. She is on hospice and does require in-home care. Apparently, her current caregiver is not available. Hospice was notified that the patient could not be left alone and are trying to arrange emergent respite care but there was no care immediately available for this patient so EMS was called and she was brought to the emergency department. On arrival to the ER, she denies complaints. She is resting comfortably on the gurney wearing oxygen which she reports to be baseline for her. States has been in baseline state of health recently with no acute illness. Review of Systems Review of Systems Constitutional: Denies fever or chills Eyes: Denies change in visual acuity, redness, or eye pain HENT: Denies nasal congestion or sore throat Respiratory: Denies cough or shortness of breath, uses oxygen at baseline Cardiovascular: No additional information not addressed in HPI GI: Denies abdominal pain, nausea : Denies dysuria or hematuria Musculoskeletal: Denies back pain or joint pain Integument: Denies rash or skin lesions Neurologic: Denies headache, focal weakness or sensory changes Endocrine: Denies polyuria or polydipsia All other systems were reviewed and found to be within normal limits, except as documented in this note. Allergies Allergies Allergies Coded Allergies Type Severity Reaction Last Updated Verified Penicillins Allergy Intermediate 11/15/16 Yes Sulfa (Sulfonamide Antibiotics) Allergy Intermediate 11/15/16 Yes Physical Exam Physical Exam Constitutional: frail, thin elderly female in no distress HENT: Normocephalic, atraumatic, bilateral external ears normal, oropharynx dry Eyes: PERRLA, EOMI, conjunctiva normal Neck: Normal range of motion Cardiovascular:Heart rate regular rhythm Lungs & Thorax: Bilateral breath sounds clear to auscultation Abdomen: Bowel sounds normal, soft, no tenderness Skin: Warm, dry, no erythema, no rash Back: Normal ROM Extremities: No tenderness, no edema Neurologic: Alert and oriented X 3 Psychologic: Affect normal Current Patient Data Vital Signs Vital Signs Date Time Temp Pulse Resp B/P (MAP) Pulse Ox O2 Delivery O2 Flow Rate FiO2 05/27/21 09:23 97.5 96 16 181/130 (147) 98 Nasal Cannula 2.0 97.5 EKG EKG [] Radiology/Procedures Radiology/Procedures [] Course & Med Decision Making Course & Med Decision Making Pertinent Labs and Imaging studies reviewed. (See chart for details) Patient is evaluated on arrival to her room. Primarily presents to the emergency department for social reasons and lack of care at home. No complaints on arrival. Physical exam appears to be at baseline. Plan is to contact hospice and inquire about emergent respite care for the patient at home. 12:05: Resting quietly. Lunch provided. Placement pending. 13:50: Patient is excepted for placement at [facility]. Final bed assi gnment pending. She has been very stable in the emergency department. No complaints and normal vital signs. 16:00: Notified by social work specialist that hospice that patient is not accepted for [facility]. Possible placement pending in [place]. Also has been notified that the patient's primary caregiver who is in a different emergency room today will likely be discharged home and there is some possibility that this patient can return back to her residence when and if primary caregiver returns home. For now, she is holding in the ER. She is resting comfortably and in no distress. 17:30: Hospice notifies that patient's primary caregiver is now back home and patient can be discharged from the ER and does not need placement. Stable for discharge. No acute events during the ER course. Dragon Disclaimer Dragon Disclaimer This electronic medical record was generated, in whole or in part, using a voice recognition dictation system. Departure Departure Impression: Primary Impression: Hypoxic Disposition: 01 HOME / SELF CARE / HOMELESS Condition: STABLE Referrals: UNKNOWN PCP NAME (PCP) OWEN BURNHAM DO May 27, 2021 09:23
== END 2021-05-27 18:16 | disposition home or self-care (01) ==
LOC: ER 09:14
DX: R09.02 Hypoxemia (principal); Z20.822 Contact with and (suspected) exposure to COVID-19; I10 Essential (primary) hypertension; Z88.0 Allergy status to penicillin; Z88.2 Allergy status to sulfonamides
CPT/HCPCS: 87426; 99283